=== PATIENT | male | born 1935 | race Caucasian/White ===

== ENCOUNTER 2016-09-26 19:09 | Inpatient (IN) | payer MEDICARE, BC ==
[~2016-09-26] VITALS: Ht 182.9 cm; Wt 113.4 kg
[~2016-09-26 19:09] MED LIST: ACETAMINOPHEN500 M1 PO; CARDURA2 MG PO; COUMADIN5 MG PO; DEXTROSE 50%/WA50 M2 IV; DULCOLAX10 MG/SUPP RC; ELECTROLYTE MISC; FISH OIL 1,0001 CA1 PO; GLIPIZIDE10 MG PO; GLUCAGEN1 MG/VIAL IM; GLUTOSE 1537.5 GM PO; HUMULIN R100 U/ML SC; HYDROCODON-ACE1 EAC7 PO; LEVAQUIN500 MG PO; LEVEMIR100 U/M1 SC; LOPID600 MG PO; MECLIZINE HCL12.5 MG PO; NEURONTIN 300300 MG PO; ONDANSETRON4 MG/2 M3 IV; XALATAN 0.0052.5 ML
[2016-09-26 19:41] LABS: BASOPHILS 0.2 % (0-2); EOSINOPHILS 0.7 % (0-7); HEMATOCRIT 45.3 % (42.0-54.0); HEMOGLOBIN 15.4 g/dL (13.5-17.5); IMMATURE GRANULOCYTES 0.3 % (0-5); LYMPHOCYTES 13.9 % (15-50); MCH 31.5 pg (26.0-34.0); MCV 92.6 fL (80.0-100.0); MEAN PLATELET VOLUME 11.3 fL (7.4-10.4); MONOCYTES 9.2 % (2-11); NEUTROPHILS 75.7 % (40-80); RBC 4.89 10x6/uL (4.20-6.10); RDW 13.5 % (11.5-14.5); WBC 12.2 10x3/uL (4.8-10.8)
[2016-09-26 19:46] LABS: PLATELET COUNT 128 10x3/uL (130-400)
[2016-09-26 20:22] LABS: ALBUMIN 3.3 g/dL (3.4-5.0); ANION GAP 16.4 mmol/L (8-16); BILIRUBIN - TOTAL 0.48 mg/dL (0.2-1.3); CALCIUM 9.2 mg/dL (8.5-10.1); CREATININE - SERUM 1.8 mg/dL (0.6-1.3); POTASSIUM - SERUM 4.4 mmol/L (3.5-5.1); PROTEIN - SERUM 7.1 g/dL (6.4-8.2)
[2016-09-26 22:15] LABS: APTT 68.9 SECONDS (22.8-39.4); INR 2.36 (0.85-1.17); PROTIME 25.9 SECONDS (11.6-15.0)
[2016-09-26 22:19] LABS: APPEARANCE CLEAR (CLEAR); BILIRUBIN NEGATIVE (NEGATIVE); COLOR YELLOW (YELLOW); GLUCOSE 1000 mg/dL (NEGATIVE); KETONE NEGATIVE (NEGATIVE); LEUKOCYTE ESTERASE NEGATIVE (NEGATIVE); NITRITE NEGATIVE (NEGATIVE); PROTEIN NEGATIVE (NEGATIVE); UROBILINOGEN NORMAL (NORMAL)
--- NOTE | 2016-09-26 22:45 | NUR ---
PATIENT RECEIVED TO ROOM FROM ER WITH FAMILY AND HOSPITAL STAFF. HE IS CURRENTLY AAOX4, BUT FAMILY CLAIMS THAT HE HAS SOME INTERMITTENT CONFUSION AND FORGETFULNESS. RR EVEN AND UNLABORED. 0 S/S OF DISTRESS. DENIES PAIN AT THIS TIME. LEVAQUIN INFUSING INTO IV IN LEFT AC. ADMIT COMPLETE. ORIENTED PATIENT TO ROOM AND CALL LIGHT. ATTACHED BOX ALARM TO PATIENT. SRX2. BED LOW. DOOR OPEN.
[2016-09-26 22:49] VITALS: BP 120/64; BMI 34.0
--- NOTE | 2016-09-27 03:00 | NUR ---
PATIENT ATTEMPTED TO USE URINAL, BUT SPILLED IT IN BED. BATH GIVEN AND LINENS AND GOWN CHANGED.
[2016-09-27 04:00] VITALS: BP 130/72
--- NOTE | 2016-09-27 07:40 | NUR ---
ASSESSEMENT COMPLETE. SL TO L AC. GENERALIZED WEAKNESS. BOX ALARM IN USE. DENIES ANY NEEDS AT PRESENT.
[2016-09-27 10:05] VITALS: BP 143/79
[2016-09-27] MEDS ORDERED: GLIPIZIDE10 MG PO (11:06)
[2016-09-27] MEDS ORDERED: MECLIZINE HCL25 MG PO (11:07)
[2016-09-27] MEDS ORDERED: MOBIC7.5 MG PO (11:09)
[2016-09-27] MEDS ORDERED: JANUVIA100 MG PO (11:10)
[2016-09-27 11:36] VITALS: BP 139/76
--- NOTE | 2016-09-27 12:00 | NUR ---
NO CHANGES NOTED AT PRESENT.
--- NOTE | 2016-09-27 14:00 | NUR ---
REFUSED ALBA CATHETER.
--- NOTE | 2016-09-27 15:00 | NUR ---
AT BEDSIDE. NO CHANGES NOTED AT PRESENT.
[2016-09-27 15:24] VITALS: Ht 182.9 cm; Wt 113.4 kg
[2016-09-27 16:03] VITALS: BP 149/59
--- NOTE | 2016-09-27 17:31 | HP ---
PATIENT: URI KNIGHT MEDICAL RECORD: [id number] ACCOUNT: [id number] LOCATION:[id number] : 36 ADMISSION DATE: 09/26/16 HISTORY AND PHYSICAL EXAMINATION REASON FOR ADMISSION: Fever with cough, confusion and weakness. HISTORY OF PRESENT ILLNESS: The patient is an 81-year-old male, who daughter states he became very weak on Sunday, 3 days prior to admission. He said his legs just wound not hold him up and he felt low-grade fever. He did not come to the hospital until it became worse last evening. EMT was called and he just could not really get up and do much. He came to the ED with a temperature of 100.7, heart rate of 105 and hypertension with blood pressure of 178/94. The patient could only give very little history and I gleaned this history from his daughter. She said he had a little bit of a dry cough and poor appetite. He was admitted with a diagnosis of possible pneumonia and had a white count of ____. His BUN was 28, creatinine 1.8, was elevated, and blood sugar was 258. His urine showed 10-25 rbc's and over 50 white cells. He has now been admitted for possible pneumonia and probable UTI. PAST MEDICAL HISTORY: Carotid occlusive disease post-endarterectomy, metabolic syndrome, history of aortic valve replacement for aortic stenosis, remote CABG for ASHD, history of TIA, dyslipidemia, remote CVA, essential hypertension, erectile dysfunction, history of adhesive capsulitis of the right shoulder, history of urinary tract infection in March 2015 and ICA [place] [address] Osborn. PAST SURGICAL HISTORY: CABG in 2009, aortic valve replacement, angioplasty for peripheral vascular disease, carotid endarterectomy and cataract surgery on both eyes. FAMILY HISTORY: Mother with CAD. Father with lung disease, was a smoker. SOCIAL HISTORY: A 2-pack a day smoker for 20 years, not smoking currently. He is , his cares for him. He does not drink alcohol currently. ALLERGIES: None known. HOME MEDICATIONS: Meloxicam 15 mg p.o. daily, glipizide 10 mg 2 tablets b.i.d., gabapentin 300 mg b.i.d., Meclizine 25 mg t.i.d. p.r.n. dizziness, Adams 10/325 one q.8 hours for severe pain, gemfibrozil 600 mg p.o. b.i.d., Januvia 100 mg p.o. daily, Travatan Z 0.004% eye drops 1 drop both eyes as directed, fish oil 1 p.o. daily, finasteride 5 mg p.o. daily, Coumadin 5 mg daily, hydrocodone 5 mg q.6 hours p.r.n. pain, Dulcolax 10 mg p.o. daily p.r.n. constipation and Levemir 30 units subQ at bedtime. REVIEW OF SYSTEMS: GENERAL: Quite fatigued the last 3 days with fever to as high as 101, poor appetite. HEENT: No recent visual change, sinus congestion, or sore throat. He has chronic hearing difficulty. RESPIRATORY: Dry cough, nonproductive. CARDIAC: No exertional chest pain, claudication, or edema. GASTROINTESTINAL: He has had some nausea, no vomiting or diarrhea. GENITOURINARY: Has nocturia once or twice nightly. He denies any recent blood HISTORY AND PHYSICAL [id number] KNIGHTURI in his urine or odor. Denies dysuria. ENDOCRINE: Denies polyuria, polydipsia, heat or cold intolerance. NEUROLOGIC: He does have remote history of stroke and TIA. No recent vascular headaches or seizures. INTEGUMENT: No rash or itching. PSYCHIATRIC: Denies depressed mood. PHYSICAL EXAMINATION: VITAL SIGNS: Temperature is 100.7 degrees Fahrenheit orally, pulse 105 and regular, respirations were 18, blood pressure 178/94 and sat was 92% on room air. GENERAL: The patient appears fatigued, but is oriented. HEENT: His eyes are clear. Oropharynx is unremarkable. Mucous membranes are dry. Ears are clear. NECK: No bruits or masses. CHEST: He has faint crackles in the left base, but no wheeze or rales, otherwise. HEART: Regular rate and rhythm with I/ aortic click, murmur. No rub is noted. ABDOMEN: Soft, nontender. RECTAL: Deferred. EXTREMITIES: A 1+ bipedal edema. No acrocyanosis appreciated. No petechiae. NEUROLOGICAL: The patient is oriented to person, but not to place and time. He has no localized motor deficits. Gait was not tested. LABORATORY DATA: Lab work showed a white count of ____ thousand with left shift. H&H is 15.4 and 44.3 respectively. Platelet count is low at 128,000. Chemistry: Sodium is low at 135, BUN and creatinine are elevated at 28 and 1.8. Glucose is 258. Lactic acid is 0.6. Magnesium low at 1.4. Urinalysis is abnormal with 10-25 red and over 50 white cells per high power field, moderate bacteria. Chest x-ray interpreted by radiology as normal. IMAGING: CT scan was ordered showing mild cerebral and cerebellar volume loss, moderate white matter burden changes representing chronic ischemia. No new intracranial abnormality seen. ASSESSMENT: 1. Febrile illness. 2. Urinary tract infection, probably causing above. 3. Diabetes mellitus, uncontrolled. 4. Hypomagnesemia. 5. Acute renal insufficiency. 6. Dementia. 7. History of coronary artery disease, aortic valve replacement on chronic anticoagulation, remote urinary tract infection, benign prostatic hypertrophy, remote cerebrovascular accident with gait disturbance. PLAN: The patient will be admitted for appropriate culturing, place on IV antibiotics and hydration. Further workup pending clinical course. I did discuss his case with his daughter, Kanika Rivas. TRANSINT:[id number] Voice Confirmation ID: [id number] DOCUMENT ID: [id number] HISTORY AND PHYSICAL [id number] URI KNIGHT TIMOTHY MD at 1731 CC: [id number] DICTATION DATE: 09/27/16 1328 PET RESORT CONCIERGE: 09/27/16 15[address] [place] [address]
--- NOTE | 2016-09-27 18:35 | NUR ---
RESTING QUIETLY IN BED AT THIS TIME.
[2016-09-27 19:00] VITALS: BP 162/82
--- NOTE | 2016-09-27 19:00 | NUR ---
BEDSIDE REPORT RECEIVED AND CARE OF PT ASSUMED. PT LYING IN SUPINE POSITION WITH EYES CLOSED. IV IN LEFT AC PATENT WITH NS INFUSING AT 50 ML / HR. BED ALARM IN PLACE. WILL MONITOR CLOSELY FOR NEEDS.
--- NOTE | 2016-09-27 20:54 | NUR ---
HS MEDICATIONS GIVEN. WILL CONTINUE TO MONITOR FOR NEEDS.
--- NOTE | 2016-09-27 21:20 | NUR ---
POST VOID BLADDER SCAN REVEALED 0 ML OF RETAINED URINE IN BLADDER.
--- NOTE | 2016-09-27 22:25 | NUR ---
GAVE RESTORIL 7.5 MG CAP PER PT REQUEST FOR SOMETHING TO HELP HIM SLEEP. WILL MONITOR FOR EFFECTIVENESS.
[2016-09-28 04:00] VITALS: BP 133/95
[2016-09-28 05:54] LABS: BASOPHILS 0.2 % (0-2); EOSINOPHILS 0.3 % (0-7); HEMATOCRIT 42.8 % (42.0-54.0); HEMOGLOBIN 14.3 g/dL (13.5-17.5); IMMATURE GRANULOCYTES 0.6 % (0-5); LYMPHOCYTES 19.6 % (15-50); MCH 31.1 pg (26.0-34.0); MCHC 33.4 g/dL (31.0-37.0); MEAN PLATELET VOLUME 11.7 fL (7.4-10.4); MONOCYTES 13.8 % (2-11); NEUTROPHILS 65.5 % (40-80); PLATELET COUNT 133 10x3/uL (130-400); RDW 13.5 % (11.5-14.5)
[2016-09-28 05:58] LABS: WBC 8.8 10x3/uL (4.8-10.8)
[2016-09-28 06:06] LABS: INR 1.76 (0.85-1.17); PROTIME 20.5 SECONDS (11.6-15.0)
[2016-09-28 06:14] LABS: ANION GAP 14.5 mmol/L (8-16); CALCIUM 8.9 mg/dL (8.5-10.1); CARBON DIOXIDE 23.3 mmol/L (21.0-32.0); CREATININE - SERUM 1.6 mg/dL (0.6-1.3); POTASSIUM - SERUM 3.8 mmol/L (3.5-5.1)
--- NOTE | 2016-09-28 07:40 | NUR ---
ASSESSMENT COMPLETE. IV TO L AC PATENT. NS INFUSING AT 50 CC/HR VIA PUMP. BOX ALARM IN USE. DENIES ANY NEEDS AT PRESENT.
--- NOTE | 2016-09-28 08:23 | NUR ---
Patient Name: URI KNIGHT Admission Status: ER Accout number: [id number] Admission Date: 09-26-2016 : 1935 Admission Diagnosis: Attending: BRAD Current LOS: 2 Anticipated DC Date: 10-02-2016 Planned Disposition: Home Primary Insurance: MEDICARE A & B Discharge Planning Comments: CM MET WITH PATIENT REGARDING D/C NEEDS AND PLANS. PATIENT STATED HE LIVES WITH HIS AND SHE WILL DRIVE HIM HOME AT DISCHARGE. PATIENT STATED THERE ARE NO STEPS OR STAIRS AT HIS HOME. PATIENT IS INDEPENDENT WITH HIS CARE AND HAS A WALKER, SHOWER CHAIR, AND GLUCOMETER (CHECKS DAILY) AT HIS HOME. PATIENTS PCP IS DR. NEWTON AND USES [facility]. PATIENT DOES NOT WANT HOME HEALTH AT THIS TIME. CM WILL CONTINUE TO FOLLOW PATIENT WITH D/C NEEDS AND PLANS. PCP DR. ENGLISH MORENO BY [facility] - [phone] DEVAUGHN () [phone] Theatrical Trouper: Kendal Gardner Is the patient Alert and Oriented? Yes 0 * How many steps to enter\exit or inside your home? 0 0 * PCP DR. NEWTON 0 * Pharmacy [facility] 0 * Preadmission Environment Home with Family 0 * ADLs Independent 0 * Equipment Glucometer Shower Chair Walker 0 * List name and contact numbers for known caregivers / representatives who currently or will assist patient after discharge: DEVAUGHN () [phone] 0 * Community resources currently utilized None 0 * Additional services required to return to the preadmission environment? Yes 0 * Can the patient safely return to the preadmission environment? Yes 0 * Has this patient been hospitalized within the prior 30 days at any hospital? No 0 Grand Total: 0
[2016-09-28 08:42] VITALS: BP 138/69
--- NOTE | 2016-09-28 10:02 | NUR ---
ASSISTED UP TO BATHROOM BY PHYSICAL THERAPY. DENIES ANY NEEDS AT PRESENT.
[2016-09-28 12:01] VITALS: BP 135/69
--- NOTE | 2016-09-28 15:17 | NUR ---
VISITING WITH FAMILY. DENIES ANY NEEDS AT PRESENT.
[2016-09-28 15:45] VITALS: BP 133/63
--- NOTE | 2016-09-28 18:14 | NUR ---
NO CHANGES NOTED.
--- NOTE | 2016-09-28 19:00 | NUR ---
BEDSIDE REPORT RECEIVED AND CARE OF PT ASSUMED. PT LYING IN SUPINE POSITION WATCHING TV. IV IN LEFT AC PATENT WITH NS INFUSING AT 50 ML / HR. WILL MONITOR CLOSLEY FOR NEEDS.
[2016-09-28 20:00] VITALS: BP 121/57
--- NOTE | 2016-09-28 21:15 | NUR ---
PT BATHED AND ALL BEDDING AND GOWN CHANGED DUE TO INCONTINENCE OF URINE. PT UPSET THAT HE FELT WE WERE NOT QUICK ENOUGH LEAD MINER BLASTING LIGHT...ASKED TO SPEAK TO TESTING MANAGER...CALLED [facility] WHO VISITED WITH PATIENT.
--- NOTE | 2016-09-28 21:15 | NUR ---
PT HAS REDNESS ON COCCYX AREA....CLEANSED AREA WELL AND APPLIED TIFFANY'S PASTE. PT TURNED PER TURN SCHEDULE.
--- NOTE | 2016-09-28 21:22 | NUR ---
HS MEDICATIONS GIVEN. FSBS 252 THIS ASSESSMENT REQUIRING COVERAGE WITH 6 UNITS OF INSULIN PER SLIDING SCALE. WILL CONTINUE TO MONITOR FOR NEEDS.
--- NOTE | 2016-09-28 21:30 | NUR ---
HS SNACK OF SHEBERT AND JULIETA CRACKERS PROVIDED.
--- NOTE | 2016-09-28 22:03 | NUR ---
PT C/O PAIN ON RIGHT SIDE OF CHEST AFTER BREATHING TX. VITALS STABLE. GAVE NORCO 5 PER PRN ORDER FOR REPORTED PAIN AT LEVEL 7/10. WILL MONITOR FOR EFFECTIVENESS.
--- NOTE | 2016-09-28 22:57 | NUR ---
PT C/O PAIN IN RIGHT CHEST RESOLVED, AND FEELING MUCH BETTER. TURNED PT AND PROPPED WITH PILLOWS TO GET OFF BUTTOCKS. LIGHTS TURNED OFF PER PT REQUEST TO TRY TO GO TO SLEEP. WILL CONTINUE TO MONITOR FOR NEEDS. BOX ALARM IN USE.
[2016-09-29] VITALS: BP 111/52
--- NOTE | 2016-09-29 02:40 | NUR ---
PT ASSISTED BY RATE ANALYST TO USE URINAL. WILL CONTINUE TO MONITOR FOR NEEDS. CALL LIGHT WITHIN REACH.
[2016-09-29 04:00] VITALS: BP 124/70
[2016-09-29 06:26] LABS: BASOPHILS 0.4 % (0-2); EOSINOPHILS 0.7 % (0-7); HEMATOCRIT 39.3 % (42.0-54.0); HEMOGLOBIN 13.1 g/dL (13.5-17.5); IMMATURE GRANULOCYTES 0.7 % (0-5); LYMPHOCYTES 22.1 % (15-50); MCHC 33.3 g/dL (31.0-37.0); MCV 92.9 fL (80.0-100.0); MONOCYTES 13.6 % (2-11); NEUTROPHILS 62.5 % (40-80); PLATELET COUNT 132 10x3/uL (130-400); RBC 4.23 10x6/uL (4.20-6.10); RDW 13.5 % (11.5-14.5); WBC 7.3 10x3/uL (4.8-10.8)
[2016-09-29 06:44] LABS: ANION GAP 14.7 mmol/L (8-16); CALCIUM 8.6 mg/dL (8.5-10.1); CARBON DIOXIDE 22.2 mmol/L (21.0-32.0); CREATININE - SERUM 1.8 mg/dL (0.6-1.3); POTASSIUM - SERUM 3.9 mmol/L (3.5-5.1)
[2016-09-29 08:16] VITALS: BP 145/66
[2016-09-29 12:11] VITALS: BP 132/63
--- NOTE | 2016-09-29 14:58 | NUR ---
NUTRITION MONITORING & EVAL CHART REVIEWED. PT TOLERATING ADA DIET, 50 TO 100% INTAKE RECENT MEALS. WILL CONTINUE TO PROVIDE DIET, MONITOR PO INTAKE. RD FOLLOWING
[2016-09-29 16:07] VITALS: BP 122/69
--- NOTE | 2016-09-29 19:30 | NUR ---
ASSESSMENT COMPLETED, NO ACUTE DISTRESS NOTED, DENIES PAIN OR NEEDS AT THIS TIME, SR'S UP ,CL IN REACH, WILL MONITOR
[2016-09-29 20:00] VITALS: BP 145/73
--- NOTE | 2016-09-29 20:17 | NUR ---
MEDS GIVEN PER MAR, KEELEY WELL, DIABETIC SNACK OFFERED, PT REFUSES AT THIS TIME, DENIES OTHER NEEDS, SR'S UP, CL IN REACH
--- NOTE | 2016-09-29 21:40 | NUR ---
DENIES NEEDS AT THIS TIME, FALL PRECAUTIONS IN PLACE, CL IN REACH
--- NOTE | 2016-09-29 23:21 | NUR ---
RESTING WITH EYES CLOSED, RESP WITH EASE, NO DISTRESS NOTED, SR'S UP, CL IN REACH
[2016-09-30] VITALS: BP 161/78
[2016-09-30 05:09] VITALS: BP 131/78
[2016-09-30 06:26] LABS: ANION GAP 14.1 mmol/L (8-16); CARBON DIOXIDE 23.1 mmol/L (21.0-32.0); CREATININE - SERUM 1.7 mg/dL (0.6-1.3); POTASSIUM - SERUM 4.2 mmol/L (3.5-5.1)
[2016-09-30 07:44] LABS: INR 2.04 (0.85-1.17); PROTIME 23.1 SECONDS (11.6-15.0)
--- NOTE | 2016-09-30 07:45 | NUR ---
PATIENT RESTING IN THE BED. AT PATIENT'S BEDSIDE. PATIENT IS AWAKE, ALERT, AND ORIENTED X4. ASSESSMENT COMPLETED. SEE FLOWSHEET FOR ANY DETAILS. NO COMPLAINTS OF PAIN AT PRESEN TIME. BOX ALARM IN PLACE. SCD'S TO BILATERAL LOWER EXTREMITIES. PATIENT STATES HE MIGHT GET TO GO HOME TODAY. PATIENT DENIES ANY NEEDS AT PRESENT TIME. CALL LIGHT IN PATIENT'S REACH. CRISTINA GARBER.
[2016-09-30 09:14] VITALS: BP 150/71
[2016-09-30] MEDS ORDERED: LEVAQUIN500 MG PO (09:31)
--- NOTE | 2016-09-30 11:10 | NUR ---
SALINE LOCK DC'D FROM PATIENT'S LEFT AC WITH CATHETER TIP STILL INTACT. BANDAID APPLIED. DISCHARGE INSTRUCTIONS VERBALIZED TO PATIENT. PATIENT VERBALIZED UNDERSTANDING AND SIGNED DISCHARGE SHEETS.
--- NOTE | 2016-09-30 11:26 | NUR ---
Patient discharged to home. Had refused home health. ALEC spoke with the patient and his , Clover, at the bedside. Patient ask if he could have [facility] which is now [place]. ALEC explained Beatriz's name has been changed to Quinten. Patient & said fine. Patient chioce form signed. TC to [facility], prescriptionist nurse, Kira. Reviewed referral. Case accepted. Faxed referral. patient will be seen on Sunday or Sunday. The h/h nurse will advise the patient.
--- NOTE | 2016-09-30 11:40 | NUR ---
PATIENT'S HERE TO DRIVE HIM HOME. PATIENT DISCHARGED VIA WHEELCHAIR TO PRIVATE VEHICLE.
--- NOTE | 2016-10-01 10:57 | DS ---
PATIENT:URI KNIGHT :37 MEDICAL RECORD: [id number] DISCHARGE SUMMARY ADMISSION DATE: 09/26/16 DISCHARGE DATE: 09/30/16 DISCHARGE DIAGNOSES: 1. Febrile illness. 2. Multi-organism urinary tract infection. 3. Diabetes mellitus, uncontrolled. 4. Hypomagnesemia. 5. Qhnvb-sf-vzrvfur renal insufficiency. 6. Dementia. HOSPITAL COURSE: An 81-year-old male who had been confused with fever for 3 days prior to admission. In the ED, he had a 100.7 Fahrenheit temperature. Was hypertensive and tachycardic. He gave little history, but had a dry cough, poor intake, felt to possibly have ____. BUN was 28, creatinine was 1.8. Blood sugar was 258. Urine showed 10-25 RBCs and 50+ WBCs. Admission chest x-ray was clear, but urine was grossly infected. The blood, urine were cultured. He was placed on IV antibiotics, IV fluids and his mentation improved. His white count dropped from 12 to 7000 on discharge. H&H was 13 and 39.3 respectively. BUN and creatinine improved to 24 and 1.7, which was his baseline. Blood sugar dropped into 185 range from over 250. His blood cultures were negative. His urine culture grew mixed contaminated specimen greater than 100,000. ____ to be continued on empiric antibiotic therapy for a full 7 days. I am concerned about his ambulation due to his diabetic neuropathy and musculoskeletal problems. His family had requested inpatient rehabilitation, which I thought was appropriate, but the patient is refusing at this time. He does have family here this weekend and I will allow him to go home with family care to the weekend. If he is not improving, we will admit to rehab on an outpatient basis. We also counseled home health for medication compliance and physical therapy. He will be discharged today in improved condition to the care of his . DISCHARGE MEDICATIONS: Levaquin 500 mg p.o. daily for 3 days and discontinue, gabapentin 300 mg b.i.d., Lopid 600 b.i.d., Levemir 30 units subq q.p.m., fish oil 1 p.o. b.i.d., Coumadin 5 mg daily at 5 p.m., acetaminophen 500 mg q.4 hours p.r.n. moderate pain, hydrocodone 5/325 one q.6 hours for severe pain, Dulcolax 10 ____ suppository p.r.n., Glucotrol 10 mg b.i.d. a.c. and Meclizine 25 b.i.d., Mobic 7.5 mg p.o. daily, Januvia 100 mg p.o. daily. DIET: ADA. ACTIVITY: Progress as tolerated, walk with walker only. Outpatient home health and PT consult to be obtained. Return to clinic to see me in 2 weeks with UA and BMP. TRANSINT:[id number] Voice Confirmation ID: [id number] DOCUMENT ID: [id number] DISCHARGE SUMMARY REPORT [id number] URI KNIGHT TIMOTHY MD at 1057 CC: [id number] DICTATION DATE: 09/30/16929 BOOM CRANE OPERATOR: 09/30/16 1005 DIS IN 09/30/16 [id number] [place] [address]
== END 2016-09-30 11:40 | disposition home health service (06) | DRG 690 ==
LOC: D.ER 19:09 → D.MS 21:57
PROVIDERS: Family Medicine; Physician Assistant; ADMIT Family Medicine
DX: N39.0 Urinary tract infection, site not specified (principal); N28.89 Other specified disorders of kidney and ureter; E11.65 Type 2 diabetes mellitus with hyperglycemia; Z79.84 Long term (current) use of oral hypoglycemic drugs; E83.42 Hypomagnesemia; F03.90 Unspecified dementia, unspecified severity, without behavioral disturbance, psychotic disturbance, mood disturbance, and anxiety; I25.10 Atherosclerotic heart disease of native coronary artery without angina pectoris; Z95.2 Presence of prosthetic heart valve; I69.398 Other sequelae of cerebral infarction; R26.9 Unspecified abnormalities of gait and mobility; R41.0 Disorientation, unspecified; E11.40 Type 2 diabetes mellitus with diabetic neuropathy, unspecified

== ENCOUNTER → 2016-10-05 14:10 | Outpatient (CLI) | payer MEDICARE, BC ==
[2016-09-27 15:24] VITALS: BMI 33.9
[~2016-10-05 14:10] MED LIST changes: +JANUVIA100 MG PO; +MECLIZINE HCL25 MG PO; +MOBIC7.5 MG PO
[2016-10-05 14:42] LABS: ANION GAP 15.5 mmol/L (8-16); CALCIUM 9.7 mg/dL (8.5-10.1); POTASSIUM - SERUM 4.5 mmol/L (3.5-5.1)
== END | disposition home or self-care (01) ==
LOC: D.LABREF 14:10
PROVIDERS: Family Medicine
DX: I10 Essential (primary) hypertension (principal); E11.9 Type 2 diabetes mellitus without complications

== ENCOUNTER → 2016-10-06 13:55 | Outpatient (CLI) | payer MEDICARE, BC ==
[2016-09-27 15:24] VITALS: BMI 33.9
== END | disposition home or self-care (01) ==
LOC: D.CT 13:55
DX: G45.9 Transient cerebral ischemic attack, unspecified (principal)

== ENCOUNTER 2016-10-16 11:25 | Inpatient (IN) | payer MEDICARE, BC ==
[~2016-10-16] VITALS: Ht 182.9 cm; Wt 107.0 kg
[2016-10-16 12:54] VITALS: BP 119/62; BMI 32.1
[2016-10-16 16:07] LABS: INR 4.13 (0.85-1.17); PROTIME 40.6 SECONDS (11.6-15.0)
[2016-10-16 19:00] VITALS: BP 103/60
--- NOTE | 2016-10-16 19:15 | NUR ---
PT UP IN BED WITH HOB UP FOR COMFORT. RESTING QUIETLY. ALERT & ORIENTED. PILOT STATION. MEDS WHOLE. NO O2. NO IV. BED IN LOWEST POSITION AND CALL LIGHT WITHIN REACH.
--- NOTE | 2016-10-16 23:15 | NUR ---
PT IN BED WITH HOB UP FOR COMFORT. EYES CLOSED. CHEST RISING AND FALLING. BED IN LOWEST POSITION AND CALL LIGHT WITHIN REACH.
--- NOTE | 2016-10-17 01:45 | NUR ---
IN BED, EYES CLOSED. AUDIBLE RESPIRATIONS ARE UNLABORED.
--- NOTE | 2016-10-17 04:45 | NUR ---
PT IN BED WITH HOB UP FOR COMFORT. RESTING QUIETLY. BED IN LOWEST POSITION AND CALL LIGHT WITHIN REACH.
[2016-10-17 05:22] LABS: INR 3.82 (0.85-1.17); PROTIME 38.1 SECONDS (11.6-15.0)
[2016-10-17 06:14] VITALS: Ht 182.9 cm; Wt 107.0 kg
--- NOTE | 2016-10-17 08:00 | NUR ---
SHIFT ASSMT COMPLETED.DENIES NEEDS.PLANS TO DC HOME ON SUNDAY.
[2016-10-17 09:26] VITALS: BP 112/56
[2016-10-17 19:05] VITALS: BP 131/67
--- NOTE | 2016-10-17 20:00 | NUR ---
PT. LYING IN BED WATCHING TV. ASSESSMENT COMPLETED. PT. KNOWS HE NEEDS TO STAY OFF HIS BACK/BUTTOCK BUT STATES HE CAN'S WHILE HE'S WATCHING TV. NO VOICED NEEDS AT THIS TIME AND HIS CALL LIGHT IS WITHIN REACH.
--- NOTE | 2016-10-17 23:19 | NUR ---
PT. IN BED WITH HOB SLIGHTLY ELEVATED. EYES CLOSED AND RESP. EVEN. CALL LIGHT WITHIN REACH.
--- NOTE | 2016-10-18 03:06 | NUR ---
PT. IN BED WITH HOB SLIGHTLY ELEVATED FOR COMFORT. EYES CLOSED AND RESP. DEEP AND EVEN. CALL LIGHT WITHIN REACH.
[2016-10-18 05:29] LABS: BASOPHILS 0.4 % (0-2); EOSINOPHILS 2.3 % (0-7); HEMATOCRIT 39.9 % (42.0-54.0); HEMOGLOBIN 13.4 g/dL (13.5-17.5); IMMATURE GRANULOCYTES 0.6 % (0-5); LYMPHOCYTES 42.5 % (15-50); MCH 30.7 pg (26.0-34.0); MCHC 33.6 g/dL (31.0-37.0); MCV 91.3 fL (80.0-100.0); MEAN PLATELET VOLUME 11.1 fL (7.4-10.4); MONOCYTES 13.4 % (2-11); NEUTROPHILS 40.8 % (40-80); PLATELET COUNT 156 10x3/uL (130-400); RBC 4.37 10x6/uL (4.20-6.10); RDW 13.6 % (11.5-14.5); WBC 4.7 10x3/uL (4.8-10.8)
[2016-10-18 05:36] LABS: INR 3.16 (0.85-1.17); PROTIME 32.8 SECONDS (11.6-15.0)
[2016-10-18 05:45] LABS: ANION GAP 11.6 mmol/L (8-16); CALCIUM 8.9 mg/dL (8.5-10.1); CARBON DIOXIDE 26.1 mmol/L (21.0-32.0); CREATININE - SERUM 1.6 mg/dL (0.6-1.3); POTASSIUM - SERUM 3.7 mmol/L (3.5-5.1)
[2016-10-18 08:00] VITALS: BP 151/88
--- NOTE | 2016-10-18 08:00 | NUR ---
SHIFT ASSMT COMPLETED.UP INDEPENDENTLY IN ROOM WITH WALKER.ALARM WAIVER SIGNED.BREAKFAST GIVEN.
--- NOTE | 2016-10-18 12:00 | NUR ---
SITTING UP IN ROOM VISITING WITH FAMILY.CL IN REACH.
--- NOTE | 2016-10-18 17:08 | NUR ---
PATIENT ADMITTED TO REHAB . [facility]16. WILL CONTINUE TO FOLLOW WITH PATIENT UNTIL DISCHARGED, PATIENT HAS WALKER AT HOME AND HAS USED [facility] AT HOME FOR HOME HEALTH.
[2016-10-18 19:00] VITALS: BP 134/63
--- NOTE | 2016-10-18 19:30 | NUR ---
PT SITTING UP IN W/C, PT HAS VISITORS, CONVERSING IN ROOM, PT DENIES ANY NEEDS.
--- NOTE | 2016-10-18 21:30 | NUR ---
WOKE PATIENT TO ADMINISTER MEDICATIONS, APOLOGIZED, PT DENIED ANY NEEDS OTHER THAN NEEDING ANOTHER BLANKET. PT STATES HE IS READY TO GO HOME.
--- NOTE | 2016-10-19 01:00 | NUR ---
RESTING QUIETLY NO S/S OF ACUTE DISTRESS RESPIRATIONS REGULAR AND UNLABORED.
--- NOTE | 2016-10-19 04:28 | NUR ---
PT RESTING QUIETLY, EYES CLOSED, RESPIRATIONS REGULAR AND UNLABORED, LYING IN SUPINE POSITION. NO S/S OF ACUTE DISTRESS.
[2016-10-19 05:44] LABS: PROTIME 26.6 SECONDS (11.6-15.0)
[2016-10-19 05:46] LABS: INR 2.43 (0.85-1.17)
--- NOTE | 2016-10-19 08:03 | NUR ---
PT IS RESTING IN BED WITH EYES OPEN. ALERT AND ORIENTED X3. DENIES PAIN OR DISCOMFORT THIS AM. NO NEEDS VOICED. SR'S ARE UP X 2 IN BED. CALL LIGHT AND BEDSIDE TABLE ARE WITHIN EASY REACH.
[2016-10-19 08:47] VITALS: BP 129/69
--- NOTE | 2016-10-19 09:53 | NUR ---
PT IS RESTING IN A WC IN HIS ROOM AWAITING THERAPY. NO NEEDS VOICED.
--- NOTE | 2016-10-19 14:12 | NUR ---
PT IS PARTICIPATING IN THERAPY AT THIS TIME.
--- NOTE | 2016-10-19 15:55 | NUR ---
PT IS RESTING IN BED WITH EYES CLOSED. NO ACUTE DISTRESS NOTED.
--- NOTE | 2016-10-19 17:21 | NUR ---
PT SITTING UP ON SIDE OF BED, DENIES NEEDS. BED LOW. CL IN REACH.
[2016-10-19 18:59] VITALS: BP 145/75
--- NOTE | 2016-10-19 19:30 | NUR ---
PT WATCHING TV. PT DENIES NO S/S OF ACUTE DISTRESS.
--- NOTE | 2016-10-19 21:05 | NUR ---
PT CONVERSIVE AND EXPRESSED CONCERN WITH THE FSBS.
[2016-10-20 06:03] LABS: BASOPHILS 0.3 % (0-2); EOSINOPHILS 2.4 % (0-7); HEMATOCRIT 41.9 % (42.0-54.0); HEMOGLOBIN 13.9 g/dL (13.5-17.5); IMMATURE GRANULOCYTES 0.5 % (0-5); LYMPHOCYTES 35.9 % (15-50); MCH 30.5 pg (26.0-34.0); MCHC 33.2 g/dL (31.0-37.0); MCV 92.1 fL (80.0-100.0); MEAN PLATELET VOLUME 11.4 fL (7.4-10.4); MONOCYTES 16.7 % (2-11); NEUTROPHILS 44.2 % (40-80); PLATELET COUNT 135 10x3/uL (130-400); RBC 4.55 10x6/uL (4.20-6.10); RDW 13.7 % (11.5-14.5); WBC 5.8 10x3/uL (4.8-10.8)
[2016-10-20 06:04] LABS: INR 1.96 (0.85-1.17); PROTIME 22.3 SECONDS (11.6-15.0)
[2016-10-20 06:08] LABS: ANION GAP 11.7 mmol/L (8-16); CALCIUM 9.4 mg/dL (8.5-10.1); CARBON DIOXIDE 27.6 mmol/L (21.0-32.0); CREATININE - SERUM 1.7 mg/dL (0.6-1.3); POTASSIUM - SERUM 4.3 mmol/L (3.5-5.1)
--- NOTE | 2016-10-20 06:28 | NUR ---
PT RESTING QUIETLY, NO S/S OF DISTRESS.
[2016-10-20 08:06] VITALS: BP 99/53
[2016-10-20] MEDS ORDERED: HYDROCODON-ACE1 EAC7 PO (10:26)
--- NOTE | 2016-10-20 10:41 | NUR ---
PATIENT DISCHARGING HOME WITH FAMILY. [facility] WILL FOLLOW WITH PATIENT AT HOME. NO NEW DME NEEDED AT THIS TIME. DR. NEWTON 10/27/16 @ 10:30. PATIENT CHOICE FORM FOR HOME HEALTH AND [facility] FORM SIGNED, EXPLIANED AND FILED IN CHART. DISCHARGE PLAN AND DISCHARGED MEDICATIONS FAXED TO [facility] AT DR. NEWTON OFFICE, ( ). ORDERS FAXED WITH CONFORMATION RECIEVED
--- NOTE | 2016-10-20 11:15 | NUR ---
D/C HOME WITH ALL PERSONAL BELONGINGS. WENT OVER D/C INSTRUCTIONS WITH PT AND HE DENIES NEEDING ANY MEDS CALLED IN TO PHARMACY. STATES HE HAS ALL OF CURRENT MEDS AT HOME. HE USES WALKER AND W/C FOR AMBULATION ASST. DENIES QUESTIONS AT D/C.
== END 2016-10-20 11:15 | disposition home health service (06) | DRG 948 ==
LOC: D.REHAB 11:25
PROVIDERS: ADMIT Emergency Medicine
DX: R53.81 Other malaise (principal); R53.1 Weakness; N40.0 Benign prostatic hyperplasia without lower urinary tract symptoms; I25.10 Atherosclerotic heart disease of native coronary artery without angina pectoris; F03.90 Unspecified dementia, unspecified severity, without behavioral disturbance, psychotic disturbance, mood disturbance, and anxiety; R26.89 Other abnormalities of gait and mobility; Z95.1 Presence of aortocoronary bypass graft; Z95.5 Presence of coronary angioplasty implant and graft; I10 Essential (primary) hypertension; E11.65 Type 2 diabetes mellitus with hyperglycemia

== ENCOUNTER → 2017-05-14 12:59 | Outpatient (CLI) | payer MEDICARE, BC ==
[2016-10-17 06:14] VITALS: BMI 32.0
== END | disposition home or self-care (01) ==
LOC: D.US 12:59
DX: I65.23 Occlusion and stenosis of bilateral carotid arteries (principal)

== ENCOUNTER → 2017-06-08 08:52 | Outpatient (CLI) | payer MEDICARE, BC ==
[2016-10-17 06:14] VITALS: BMI 32.0
== END | disposition home or self-care (01) ==
LOC: D.CT 08:00
DX: I65.23 Occlusion and stenosis of bilateral carotid arteries (principal)

== ENCOUNTER 2017-08-03 16:13 | Observation (INO) | payer MEDICARE, BC ==
[~2017-08-03] VITALS: Ht 182.9 cm; Wt 108.2 kg
--- NOTE | ~2017-08-03 | HP ---
PATIENT: URI KNIGHT MEDICAL RECORD: [id number] ACCOUNT: [id number] LOCATION:[address] : 36 ADMISSION DATE: 08/03/17 HISTORY AND PHYSICAL EXAMINATION DATE OF ADMISSION: 08/03/2017. CHIEF COMPLAINT: Weakness. HISTORY OF PRESENT ILLNESS: This is an 82-year-old white male who was brought into the office today, stated he could barely get up out of bed and walk, this is a definite change from yesterday according to and son. In our office, his blood pressure was 85/50, checked by 2 nurses and physician. He is assigned to observation for further evaluation to rule out infection and etc. PAST MEDICAL HISTORY: Carotid occlusive disease, metabolic syndrome, aortic stenosis, coronary artery disease, TIA, hyperlipidemia, remote CVA, hypertension, urinary tract infections, diabetes, and depression. PAST SURGICAL HISTORY: Coronary artery bypass grafting, carotid endarterectomy, heart valve replacement, knee surgery, angioplasty for peripheral vascular disease, cataract repair. ALLERGIES: None known. HOME MEDICATIONS: 1. He takes lipozene 2 tablets daily, this started 3 days ago to help with weight loss. 2. Levemir 30 units at bedtime. 3. Meloxicam 15 mg a day. 4. Gabapentin 300 mg 2 pills twice a day. 5. Meclizine 25 mg 3 times a day. 6. Januvia 100 mg once a day. 7. Warfarin 5 mg okh-sst-sffi pills a day. 8. Gemfibrozil 600 mg one pill twice a day. 9. Glipizide 10 mg twice a day. 10. Fish oil 1000 mg once a day. ALLERGIES: TO AUGMENTIN. HABITS: Former smoker, no alcohol or drugs. SOCIAL HISTORY: Retired, . FAMILY HISTORY: Mother had coronary artery disease. Father had lung disease. REVIEW OF SYSTEMS: GENERAL: No major weight changes. HEENT: No particular sinus or allergy problems. RESPIRATORY: No recent changes. CARDIAC: No exertional chest pain. GASTROINTESTINAL: He has had some nausea. No vomiting or diarrhea. GENITOURINARY: Has to get up once or twice at night to urinate. ENDOCRINE: Has diabetes. NEUROLOGIC: He has a remote history of TIA and strokes. HISTORY AND PHYSICAL [id number] URI KNIGHT INTEGUMENT: No rash. PSYCHIATRIC: No depression or melancholia. PHYSICAL EXAMINATION: VITAL SIGNS: Temperature 97.9, pulse 86, respirations 16. In our office, his blood pressure was 85/50, checked in both arms 3 times. GENERAL: He is in a wheelchair in my office. HEENT: Grossly within normal limits. NECK: Supple. No JVD or bruit. HEART: Regular rate and rhythm. LUNGS: Fairly clear. ABDOMEN: Soft, flat, nontender. EXTREMITIES: Trace edema. NEUROLOGIC: I did not get him up to try to walk. ASSESSMENT: 1. Hypotension. 2. Generalized weakness. PLAN: We will assign to observation at [place]. We will check labs including urinalysis. Other tests or procedures as warranted. TRANSINT:[id number] Voice Confirmation ID: [id number] DOCUMENT ID: [id number] JOEY HASSAN MD at 1440 CC: [id number] DICTATION DATE: 08/04/17 1324 HUMAN RESOURCES GENERALIST: 08/04/17 1357 DIS IN 08/04/17 [facility] [address] [place] [address]
[2017-08-03 17:02] VITALS: BP 113/67; Ht 182.9 cm; Wt 108.2 kg
[2017-08-03] MEDS ORDERED: COUMADIN5 MG PO (17:15)
[2017-08-03 17:39] LABS: BASOPHILS 0.4 % (0-2); EOSINOPHILS 1.9 % (0-7); HEMATOCRIT 43.8 % (42.0-54.0); HEMOGLOBIN 14.8 g/dL (13.5-17.5); IMMATURE GRANULOCYTES 0.4 % (0-5); LYMPHOCYTES 30.2 % (15-50); MCH 31.8 pg (26.0-34.0); MCHC 33.8 g/dL (31.0-37.0); MEAN PLATELET VOLUME 11.9 fL (7.4-10.4); MONOCYTES 9.2 % (2-11); NEUTROPHILS 57.9 % (40-80); PLATELET COUNT 137 10x3/uL (130-400); RBC 4.66 10x6/uL (4.20-6.10); RDW 13.9 % (11.5-14.5); WBC 8.4 10x3/uL (4.8-10.8)
[2017-08-03 17:49] LABS: ALBUMIN 3.2 g/dL (3.4-5.0); ANION GAP 15.8 mmol/L (8-16); BILIRUBIN - TOTAL 0.37 mg/dL (0.2-1.3); CALCIUM 9.1 mg/dL (8.5-10.1); CARBON DIOXIDE 23.6 mmol/L (21.0-32.0); CREATININE - SERUM 2.3 mg/dL (0.6-1.3); POTASSIUM - SERUM 4.4 mmol/L (3.5-5.1); PROTEIN - SERUM 7.7 g/dL (6.4-8.2)
[2017-08-03 19:34] VITALS: BP 128/63
[2017-08-04] VITALS: BP 129/57
[2017-08-04 05:25] VITALS: BP 139/67
[2017-08-04 09:14] VITALS: BP 159/88
[2017-08-04 12:23] VITALS: BP 139/71
[2017-08-04 13:26] LABS: APPEARANCE CLEAR (CLEAR); BILIRUBIN NEGATIVE (NEGATIVE); COLOR YELLOW (YELLOW); GLUCOSE 1000 mg/dL (NEGATIVE); KETONE NEGATIVE (NEGATIVE); NITRITE NEGATIVE (NEGATIVE); PROTEIN NEGATIVE (NEGATIVE); SPECIFIC GRAVITY 1.015 (1.005-1.020); UROBILINOGEN NORMAL (NORMAL)
== END 2017-08-04 16:11 | disposition home or self-care (01) ==
LOC: D.M2 16:13 → OBSVTIME 16:13 → D.M2 08-04 16:11
PROVIDERS: Family Medicine
DX: I95.9 Hypotension, unspecified (principal); E78.5 Hyperlipidemia, unspecified; I25.10 Atherosclerotic heart disease of native coronary artery without angina pectoris; I10 Essential (primary) hypertension; Z86.73 Personal history of transient ischemic attack (TIA), and cerebral infarction without residual deficits; E11.9 Type 2 diabetes mellitus without complications; F32.9 Major depressive disorder, single episode, unspecified

== ENCOUNTER → 2017-08-11 11:41 | Outpatient (CLI) | payer MEDICARE, BC ==
[2017-08-03 17:02] VITALS: BMI 34.0
[2017-08-11 12:17] LABS: ANION GAP 14.7 mmol/L (8-16); CALCIUM 9.2 mg/dL (8.5-10.1); CARBON DIOXIDE 23.2 mmol/L (21.0-32.0); CREATININE - SERUM 2.3 mg/dL (0.6-1.3); POTASSIUM - SERUM 4.9 mmol/L (3.5-5.1)
== END | disposition home or self-care (01) ==
LOC: D.LABREF 11:41
PROVIDERS: Family Medicine
DX: E87.5 Hyperkalemia (principal)

== ENCOUNTER 2017-11-13 19:06 | Inpatient (IN) | payer MEDICARE, BC ==
[~2017-11-13] VITALS: Ht 182.9 cm; Wt 112.5 kg
[2017-11-13] MEDS ORDERED: JANUVIA100 MG PO (19:09)
[2017-11-13 20:18] LABS: BASOPHILS 0.2 % (0-2); EOSINOPHILS 0.5 % (0-7); HEMATOCRIT 44.6 % (42.0-54.0); HEMOGLOBIN 15.5 g/dL (13.5-17.5); IMMATURE GRANULOCYTES 0.4 % (0-5); LYMPHOCYTES 8.7 % (15-50); MCH 31.5 pg (26.0-34.0); MCHC 34.8 g/dL (31.0-37.0); MCV 90.7 fL (80.0-100.0); MEAN PLATELET VOLUME 11.6 fL (7.4-10.4); NEUTROPHILS 81.2 % (40-80); PLATELET COUNT 142 10x3/uL (130-400); RBC 4.92 10x6/uL (4.20-6.10); RDW 13.2 % (11.5-14.5); WBC 13.5 10x3/uL (4.8-10.8)
[2017-11-13 20:36] LABS: ALBUMIN 3.4 g/dL (3.4-5.0); ALKALINE PHOSPHATASE 63 U/L (46-116); ALT (SGPT) 13 U/L (10-68); BILIRUBIN - TOTAL 0.25 mg/dL (0.2-1.3); CALC OSMOLALITY 286 mosm/kg (275-300); CALCIUM 10.5 mg/dL (8.5-10.1); CARBON DIOXIDE 24.3 mmol/L (21.0-32.0); CHLORIDE - SERUM 101 mmol/L (98-107); CREATININE - SERUM 2.1 mg/dL (0.6-1.3); GLUCOSE 291 mg/dL (74-106); POTASSIUM - SERUM 5.2 mmol/L (3.5-5.1); PROTEIN - SERUM 7.7 g/dL (6.4-8.2); SODIUM 134 mmol/L (136-145); UREA NITROGEN 36 mg/dL (7-18); eGFR NON AFRICAN AMERICAN 32 mL/min (90-120)
[2017-11-13 20:48] LABS: CKMB 1.8 U/L (0.0-3.6); CREATINE KINASE 79 UL (21-232); LIPASE 256 U/L (73-393); PRO BNP 197 pg/mL (0-450); TROPONIN-I < 0.017 ng/mL (0.000-0.060)
[2017-11-13 23:00] VITALS: BP 130/64
[2017-11-13 23:12] LABS: UDS - AMPHET NEGATIVE QUAL (NEGATIVE); UDS - BARB NEGATIVE QUAL (NEGATIVE); UDS - BENZO NEGATIVE QUAL (NEGATIVE); UDS - COCAINE NEGATIVE QUAL (NEGATIVE); UDS - OPIATE NEGATIVE QUAL (NEGATIVE); UDS - PCP NEGATIVE QUAL (NEGATIVE); UDS - THC NEGATIVE QUAL (NEGATIVE)
[2017-11-14] VITALS (10 sets, daily range): BP systolic 112–170; BP diastolic 57–81; Ht 182.9 cm; Wt 112.5 kg
[2017-11-14 07:18] LABS: BASOPHILS 0.2 % (0-2); HEMOGLOBIN 14.2 g/dL (13.5-17.5); IMMATURE GRANULOCYTES 0.3 % (0-5); LYMPHOCYTES 23.6 % (15-50); MCH 31.1 pg (26.0-34.0); MCHC 33.8 g/dL (31.0-37.0); MCV 91.9 fL (80.0-100.0); MEAN PLATELET VOLUME 11.9 fL (7.4-10.4); MONOCYTES 8.6 % (2-11); NEUTROPHILS 66.3 % (40-80); PLATELET COUNT 127 10x3/uL (130-400); RBC 4.57 10x6/uL (4.20-6.10); RDW 13.4 % (11.5-14.5); WBC 10.3 10x3/uL (4.8-10.8)
[2017-11-14 07:43] LABS: CALCIUM 9.3 mg/dL (8.5-10.1); CARBON DIOXIDE 26.3 mmol/L (21.0-32.0); CHLORIDE - SERUM 106 mmol/L (98-107); CKMB 2.4 U/L (0.0-3.6); CREATININE - SERUM 1.8 mg/dL (0.6-1.3); POTASSIUM - SERUM 4.5 mmol/L (3.5-5.1); SODIUM 141 mmol/L (136-145); TROPONIN-I < 0.017 ng/mL (0.000-0.060); UREA NITROGEN 30 mg/dL (7-18); eGFR NON AFRICAN AMERICAN 39 mL/min (90-120)
[2017-11-14 07:45] LABS: CALC OSMOLALITY 288 mosm/kg (275-300); CREATINE KINASE 273 UL (21-232); GLUCOSE 141 mg/dL (74-106)
[2017-11-14 08:54] LABS: INR 2.44 (0.85-1.17); PROTIME 25.8 SECONDS (11.6-15.0)
[2017-11-15 06:11] VITALS: BP 119/69
[2017-11-15 06:17] LABS: BASOPHILS 0.4 % (0-2); EOSINOPHILS 1.9 % (0-7); HEMATOCRIT 42.6 % (42.0-54.0); HEMOGLOBIN 14.3 g/dL (13.5-17.5); IMMATURE GRANULOCYTES 0.5 % (0-5); LYMPHOCYTES 23.8 % (15-50); MCHC 33.6 g/dL (31.0-37.0); MCV 92.2 fL (80.0-100.0); MONOCYTES 10.7 % (2-11); NEUTROPHILS 62.7 % (40-80); PLATELET COUNT 134 10x3/uL (130-400); RBC 4.62 10x6/uL (4.20-6.10); RDW 13.3 % (11.5-14.5); WBC 8.3 10x3/uL (4.8-10.8)
[2017-11-15 06:22] LABS: PROTIME 21.4 SECONDS (11.6-15.0)
[2017-11-15 06:42] LABS: ANION GAP 11.4 mmol/L (8-16); CARBON DIOXIDE 26.3 mmol/L (21.0-32.0); CREATININE - SERUM 1.6 mg/dL (0.6-1.3); POTASSIUM - SERUM 4.7 mmol/L (3.5-5.1)
[2017-11-15 06:46] LABS: INR 1.92 (0.85-1.17)
[2017-11-15 08:52] VITALS: BP 121/66
[2017-11-15 12:00] VITALS: BP 125/69
[2017-11-15 16:47] VITALS: BP 140/63
[2017-11-15 21:27] VITALS: BP 148/77
[2017-11-16 02:05] VITALS: BP 124/75; BP 145/74
[2017-11-16 04:00] VITALS: BP 150/78
[2017-11-16 05:30] LABS: BASOPHILS 0.5 % (0-2); EOSINOPHILS 2.6 % (0-7); HEMATOCRIT 42.9 % (42.0-54.0); HEMOGLOBIN 14.8 g/dL (13.5-17.5); IMMATURE GRANULOCYTES 0.6 % (0-5); LYMPHOCYTES 26.2 % (15-50); MCH 31.6 pg (26.0-34.0); MCHC 34.5 g/dL (31.0-37.0); MCV 91.5 fL (80.0-100.0); MEAN PLATELET VOLUME 11.7 fL (7.4-10.4); MONOCYTES 11.5 % (2-11); NEUTROPHILS 58.6 % (40-80); PLATELET COUNT 126 10x3/uL (130-400); RBC 4.69 10x6/uL (4.20-6.10); RDW 13.1 % (11.5-14.5); WBC 8.3 10x3/uL (4.8-10.8)
[2017-11-16 05:46] LABS: ANION GAP 12.4 mmol/L (8-16); CALCIUM 8.9 mg/dL (8.5-10.1); CARBON DIOXIDE 25.9 mmol/L (21.0-32.0); CREATININE - SERUM 1.5 mg/dL (0.6-1.3); POTASSIUM - SERUM 4.3 mmol/L (3.5-5.1)
[2017-11-16 06:24] LABS: PROTIME 17.8 SECONDS (11.6-15.0)
[2017-11-16 07:13] LABS: INR 1.52 (0.85-1.17)
[2017-11-16 08:39] VITALS: BP 160/76
[2017-11-16 11:45] VITALS: BP 124/62
[2017-11-16] MEDS ORDERED: ZOFRAN4 MG PO (14:42)
[2017-11-16] MEDS ORDERED: FLORAJEN3 CAPS460 MG PO (14:45)
[2017-11-16] MEDS ORDERED: HUMALOG 30100 UNITS/ SC (14:45)
[2017-11-16] MEDS ORDERED: LEVAQUIN500 MG PO (14:50)
[2017-11-16] MEDS ORDERED: ROCEPHIN 1 GM/D51 G1 IV (14:51)
== END 2017-11-16 16:15 | DRG 698 ==
LOC: D.ER 19:06 → D.EDHOLD 22:01 → D.M2 22:01
PROVIDERS: Family Medicine
DX: N28.9 Disorder of kidney and ureter, unspecified (principal); J18.9 Pneumonia, unspecified organism; E11.9 Type 2 diabetes mellitus without complications; Z86.73 Personal history of transient ischemic attack (TIA), and cerebral infarction without residual deficits; I25.10 Atherosclerotic heart disease of native coronary artery without angina pectoris; Z95.5 Presence of coronary angioplasty implant and graft; Z68.20 Body mass index [BMI] 20.0-20.9, adult; R53.81 Other malaise

== ENCOUNTER 2017-11-16 13:18 | Inpatient (IN) | payer MEDICARE, BC ==
[~2017-11-16] VITALS: Ht 182.9 cm; Wt 111.1 kg
--- NOTE | ~2017-11-16 | RHP ---
PATIENT: URI KNIGHT MEDICAL RECORD: [id number] ACCOUNT: [id number] LOCATION:[facility]1117 : 36 ADMISSION DATE: 11/16/17 REHABILITATION HISTORY AND PHYSICAL EXAMINATION POST ADMISSION PHYSICIAN EXAMINATION POST-ADMISSION PHYSICAL EXAM AND HISTORY AND PHYSICAL ADMITTING DIAGNOSIS: Pneumonia. HISTORY OF PRESENT ILLNESS: The patient is admitted to the inpatient rehabilitation for debility secondary to pneumonia. He is an 82-year-old gentleman that was brought in to the ED with EMS changes and weakness. He has past medical history for TIA, dizziness, glaucoma, diabetes, coronary artery disease with a history of angioplasty and stents and coronary artery bypass grafting. Occasional UTIs are noted and urinary incontinence. He has had some arthritis and chronic back pain. He was found to have pneumonia and renal insufficiency and weakness. He has been on oxygen via nasal cannula and receiving IV antibiotics. He has been monitored closely for therapeutic level of his Coumadin with medication dosage being changed on a regular basis secondary to his PT and INR not being therapeutic. He has been closely monitored for fingerstick blood sugars and also receiving scheduled insulin as needed. He is slowly progressing physically and would benefit from a short inpatient rehab stay, so he can return home with his . His son is also very involved in his care. He is moderately independent with use of rolling walker for mobility, moderate independent to independent with his ADLs, currently set up for moderate assist with his ADLs and moderate assist to total assist for mobility. He and his family plan for him to return home after a short stay in the rehab hopefully. COMORBIDITIES: In this patient include pneumonia, renal insufficiency, weakness, chronic diabetes, debility, glaucoma, self-care deficit and advanced age. PAST MEDICAL HISTORY: Significant for TIA, dizziness, glaucoma, diabetes, stent/angioplasty, coronary artery bypass grafting, coronary artery disease, occasional urinary incontinence, arthritis, chronic back pain. PAST SURGICAL HISTORY: Includes angioplasty with stents, coronary artery bypass grafting, which was done in 2009, cataracts, partial knee replacement. He has also had carpal tunnel surgery. ALLERGIES: No known drug allergies. CURRENT MEDICATIONS: He is on Coumadin, he takes 2.5 on Sunday, Sunday and Sunday, and alternates that with 5. He is on Levaquin 500 mg daily. He is on Floranex 460 mg daily, Zofran 4 mg q.4 hours p.r.n. He is on intermediate resistant sliding scale with Humalog. He is on Levemir 25 units at bedtime, Neurontin 300 mg b.i.d., Rocephin 1 g q.24 hours and polyethylene glycol 17 grams in 8 ounces of water daily. HABITS: No current alcohol or tobacco use. FAMILY HISTORY: Noncontributory. HISTORY AND PHYSICAL [id number] URI KNIGHT SOCIAL HISTORY: The patient hopes to return back home and get back to his prior level of functioning. REVIEW OF SYSTEMS: GENERAL: Does complain of weakness and fatigue. HEENT: Denies cold, cough, or congestion. CARDIOVASCULAR: Denies any chest pain. PHYSICAL EXAMINATION: VITAL SIGNS: Stable, afebrile. GENERAL: Elderly gentleman in no acute distress, alert upon exam. HEENT: Normocephalic and atraumatic. Mucosa moist. NECK: Supple. No lymphadenopathy. LUNGS: Clear in upper bob at this time, decreased breath sounds in the bases. HEART: Regular rate and rhythm. ABDOMEN: Benign. EXTREMITIES: No clubbing, cyanosis or edema. NEUROLOGIC: He does have noted weakness. LABORATORY DATA: White count is 8.6, H&H of 11 and 33 and platelet count is 305. His sodium is 147, potassium is 4.4, BUN and creatinine of 38 and 1.1 and blood sugar is noted to be 97. ASSESSMENT: This is an 82-year-old gentleman who is admitted to rehab with a working diagnosis of debility secondary to pneumonia and advanced age and also obesity. The patient has potential to make improvement. We instituted the following multidisciplinary therapies including but not limited to physical, occupational, respiratory, speech, nutritional services, prosthetics and orthotics. Given his complex medical condition and risk for more complications, rehabilitation services cannot be provided at a low level of care such as a skilled nurse facility. PLAN: 1. Admit to [facility] for intensive inpatient therapy to include the following disciplines: A. Physical therapy to improve gait, all transfer skills and bed mobility to a modified independent level. B. Occupational therapy to improve activities of daily living to a modified independent level. C. Case management to assist with discharge planning and placement options. D. Nutrition to assist with nutritional needs. E. Rehabilitation nursing to assist in monitoring the patient's underlying medical conditions and to assist with any type of bowel or bladder management. 2. The patient's current medication and medical care will be continued. 3. The patient will be placed on standard fall precautions. 4. The patient's estimated length of stay is approximately 7-10 days. 5. We will watch this patient closely. As soon as he progresses well, we will work on getting him back home and will watch for any changes in his respiratory status. TRANSINT:[id number] Voice Confirmation ID: [id number] DOCUMENT ID: [id number] DEMARCUS notes whether there has been none or any medical/functional HISTORY AND PHYSICAL [id number] URI KNIGHT change since admission: - No change since prescreen. DEMARCUS attests patient continues to be appropriate for IRF: - Continues to be appropriate. RAMSES ESTEVEZ MD at 1048 CC: [id number] DICTATION DATE: 11/17/17918 BOTTLE HOUSE PUMPER: 11/17/17 0956 ADM IN [facility] [address] [place] [address]
[2017-11-16] MEDS ORDERED: ZOFRAN4 MG PO (14:42)
[2017-11-16] MEDS ORDERED: HUMALOG 30100 UNITS/ SC (14:45)
[2017-11-16] MEDS ORDERED: FLORAJEN3 CAPS460 MG PO (14:45)
[2017-11-16] MEDS ORDERED: LEVAQUIN500 MG PO (14:50)
[2017-11-16] MEDS ORDERED: ROCEPHIN 1 GM/D51 G1 IV (14:51)
[2017-11-16 18:44] VITALS: BP 130/43; BMI 33.3
[2017-11-16 19:55] VITALS: BP 130/63
[2017-11-17 06:00] LABS: BASOPHILS 0.5 % (0-2); EOSINOPHILS 2.8 % (0-7); IMMATURE GRANULOCYTES 0.8 % (0-5); LYMPHOCYTES 17.8 % (15-50); MCH 31.9 pg (26.0-34.0); MCHC 33.6 g/dL (31.0-37.0); MEAN PLATELET VOLUME 9.6 fL (7.4-10.4); NEUTROPHILS 67.1 % (40-80); RDW 14.3 % (11.5-14.5); WBC 8.6 10x3/uL (4.8-10.8)
[2017-11-17 06:26] LABS: HEMATOCRIT 32.7 % (42.0-54.0); RBC 3.45 10x6/uL (4.20-6.10)
[2017-11-17 06:27] LABS: MCV 94.8 fL (80.0-100.0); PLATELET COUNT 305 10x3/uL (130-400)
[2017-11-17 06:28] LABS: ANION GAP 14.6 mmol/L (8-16); CALCIUM 8.8 mg/dL (8.5-10.1); CARBON DIOXIDE 23.8 mmol/L (21.0-32.0); POTASSIUM - SERUM 4.4 mmol/L (3.5-5.1)
[2017-11-17 06:45] LABS: CREATININE - SERUM 1.1 mg/dL (0.6-1.3)
[2017-11-17 08:00] VITALS: BP 140/78
[2017-11-17 10:00] VITALS: Ht 182.9 cm; Wt 111.1 kg
[2017-11-18 07:05] LABS: INR 1.24 (0.85-1.17); PROTIME 15.2 SECONDS (11.6-15.0)
[2017-11-18 08:11] VITALS: BP 132/73
== END 2017-11-18 12:15 | disposition home health service (06) | DRG 947 ==
LOC: D.REHAB 13:18
PROVIDERS: Emergency Medicine
DX: R53.81 Other malaise (principal); J18.9 Pneumonia, unspecified organism; E11.9 Type 2 diabetes mellitus without complications; I25.10 Atherosclerotic heart disease of native coronary artery without angina pectoris; Z95.1 Presence of aortocoronary bypass graft; H40.9 Unspecified glaucoma; R53.1 Weakness; N28.9 Disorder of kidney and ureter, unspecified

== ENCOUNTER 2018-03-20 09:10 | Inpatient (IN) | payer MEDICARE, BC ==
[~2018-03-20] VITALS: Ht 182.9 cm; Wt 115.7 kg
[~2018-03-20 09:10] MED LIST changes: +FLORAJEN3 CAPS460 MG PO; +HUMALOG 30100 UNITS/ SC; +ROCEPHIN 1 GM/D51 G1 IV; +ZOFRAN4 MG PO
[2018-03-20 09:52] LABS: BASOPHILS 0.2 % (0-2); EOSINOPHILS 0.4 % (0-7); HEMATOCRIT 44.5 % (42.0-54.0); HEMOGLOBIN 15.1 g/dL (13.5-17.5); IMMATURE GRANULOCYTES 0.4 % (0-5); LYMPHOCYTES 11.9 % (15-50); MCH 31.4 pg (26.0-34.0); MCHC 33.9 g/dL (31.0-37.0); MCV 92.5 fL (80.0-100.0); MEAN PLATELET VOLUME 11.3 fL (7.4-10.4); MONOCYTES 9.9 % (2-11); NEUTROPHILS 77.2 % (40-80); RBC 4.81 10x6/uL (4.20-6.10); RDW 14.3 % (11.5-14.5); WBC 9.9 10x3/uL (4.8-10.8)
[2018-03-20 09:53] LABS: PLATELET COUNT 143 10x3/uL (130-400)
[2018-03-20 10:07] LABS: APTT 64.3 SECONDS (22.8-39.4); INR 3.01 (0.85-1.17); PROTIME 30.4 SECONDS (11.6-15.0)
[2018-03-20 10:25] LABS: ALBUMIN 3.4 g/dL (3.4-5.0); ALKALINE PHOSPHATASE 72 U/L (46-116); ALT (SGPT) 2 U/L (10-68); BILIRUBIN - TOTAL 0.43 mg/dL (0.2-1.3); CALC OSMOLALITY 291 mosm/kg (275-300); CALCIUM 8.8 mg/dL (8.5-10.1); CARBON DIOXIDE 24.5 mmol/L (21.0-32.0); CHLORIDE - SERUM 102 mmol/L (98-107); CKMB 1.3 U/L (0.0-3.6); CREATINE KINASE 67 UL (21-232); CREATININE - SERUM 2.3 mg/dL (0.6-1.3); POTASSIUM - SERUM 4.9 mmol/L (3.5-5.1); PROTEIN - SERUM 7.8 g/dL (6.4-8.2); SODIUM 138 mmol/L (136-145); TROPONIN-I < 0.017 ng/mL (0.000-0.060); UREA NITROGEN 30 mg/dL (7-18); eGFR NON AFRICAN AMERICAN 29 mL/min (90-120)
[2018-03-20 10:33] LABS: GLUCOSE 271 mg/dL (74-106)
[2018-03-20 10:37] LABS: APPEARANCE CLEAR (CLEAR); BILIRUBIN NEGATIVE (NEGATIVE); COLOR YELLOW (YELLOW); GLUCOSE 1000 mg/dL (NEGATIVE); KETONE NEGATIVE (NEGATIVE); NITRITE NEGATIVE (NEGATIVE); PROTEIN 1+ mg/dL (NEGATIVE); SPECIFIC GRAVITY 1.015 (1.005-1.020); UROBILINOGEN NORMAL (NORMAL)
[2018-03-20 10:38] LABS: EPITHELIAL CELLS NSEEN /hpf (0-5); RED CELLS - URINE 0-5 /hpf (0-5); WHITE CELLS - URINE OCC /hpf (0-5)
[2018-03-20 10:46] VITALS: BP 172/69
[2018-03-20 15:38] VITALS: BP 169/86; BMI 34.6
[2018-03-20] MEDS ORDERED: MECLIZINE HCL25 MG PO (15:52)
[2018-03-20] MEDS ORDERED: MOBIC7.5 MG PO (15:52)
[2018-03-20] MEDS ORDERED: GEMFIBROZIL600 MG PO (15:54)
[2018-03-20] MEDS ORDERED: LEVEMIR IN100 UNITS/ SC (15:55)
[2018-03-20 16:50] VITALS: BP 169/86
[2018-03-20 20:24] VITALS: BP 172/81
[2018-03-21 00:58] VITALS: BP 143/72
[2018-03-21 04:00] VITALS: BP 130/67
[2018-03-21 05:48] LABS: BASOPHILS 0 % (0-2); EOSINOPHILS 0 % (0-7); HEMATOCRIT 40.3 % (42.0-54.0); HEMOGLOBIN 13.6 g/dL (13.5-17.5); IMMATURE GRANULOCYTES 0.3 % (0-5); LYMPHOCYTES 6.2 % (15-50); MCH 31.3 pg (26.0-34.0); MCHC 33.7 g/dL (31.0-37.0); MCV 92.6 fL (80.0-100.0); MEAN PLATELET VOLUME 11.5 fL (7.4-10.4); MONOCYTES 9.2 % (2-11); NEUTROPHILS 84.3 % (40-80); PLATELET COUNT 151 10x3/uL (130-400); RBC 4.35 10x6/uL (4.20-6.10); RDW 14.4 % (11.5-14.5); WBC 12.2 10x3/uL (4.8-10.8)
[2018-03-21 06:54] LABS: ALBUMIN 2.6 g/dL (3.4-5.0); ANION GAP 16.3 mmol/L (8-16); BILIRUBIN - TOTAL 0.35 mg/dL (0.2-1.3); CALCIUM 8.6 mg/dL (8.5-10.1); CARBON DIOXIDE 23.7 mmol/L (21.0-32.0); CREATININE - SERUM 2.1 mg/dL (0.6-1.3); PROTEIN - SERUM 7.5 g/dL (6.4-8.2)
[2018-03-21 08:15] VITALS: BP 147/71
[2018-03-21 11:31] VITALS: BP 110/60
[2018-03-21 12:40] VITALS: BMI 34.6
[2018-03-21 17:02] VITALS: BP 137/73
[2018-03-22 04:24] LABS: BASOPHILS 0.2 % (0-2); EOSINOPHILS 0.2 % (0-7); HEMATOCRIT 36.5 % (42.0-54.0); HEMOGLOBIN 12.1 g/dL (13.5-17.5); IMMATURE GRANULOCYTES 0.5 % (0-5); LYMPHOCYTES 18.9 % (15-50); MCH 30.6 pg (26.0-34.0); MCHC 33.2 g/dL (31.0-37.0); MCV 92.4 fL (80.0-100.0); MEAN PLATELET VOLUME 11.6 fL (7.4-10.4); NEUTROPHILS 71.2 % (40-80); PLATELET COUNT 153 10x3/uL (130-400); RBC 3.95 10x6/uL (4.20-6.10); RDW 14.4 % (11.5-14.5); WBC 12.4 10x3/uL (4.8-10.8)
[2018-03-22 04:40] LABS: ANION GAP 14.8 mmol/L (8-16); CALCIUM 8.7 mg/dL (8.5-10.1)
[2018-03-22 04:45] LABS: POTASSIUM - SERUM 3.8 mmol/L (3.5-5.1)
[2018-03-22 07:51] VITALS: BP 152/70
[2018-03-22 11:32] VITALS: BP 107/61
[2018-03-22 15:44] VITALS: BP 134/69
[2018-03-22 20:00] VITALS: BP 173/83
[2018-03-23 04:20] VITALS: BP 174/92
[2018-03-23 05:44] LABS: INR 1.85 (0.85-1.17); PROTIME 20.7 SECONDS (11.6-15.0)
[2018-03-23 08:02] VITALS: Ht 182.9 cm; Wt 115.7 kg
[2018-03-23 08:18] VITALS: BP 178/97
--- NOTE | 2018-03-23 09:47 | HP ---
PATIENT: URI KNIGHT MEDICAL RECORD: [id number] ACCOUNT: [id number] LOCATION:[address]04 : 36 ADMISSION DATE: 03/20/18 PCP: ANGELA NEWTON MD HISTORY AND PHYSICAL EXAMINATION CHIEF COMPLAINT: Fever, confusion and weakness. HISTORY OF PRESENT ILLNESS: The patient is an 83-year-old male with history of type 2 diabetes mellitus, remote CVA, and AFib. The patient has been debilitated for some time and able to walk by using a rolling walker at home. His says he became more weak the last 3-4 days and his legs are so weak he fell once or twice at home, last was this morning and he fell on her. There was no reported injury except for his right shoulder where he is having some pain. reports it was 101 twice, has minimal cough. No dysuria, no nausea or vomiting. Does not complain of headache. In the Emergency Room, his pO2 was in the low 60s on room air, but he would desaturate lying supine. PAST MEDICAL HISTORY: Essential hypertension, diabetes mellitus, fair control, dementia, coronary artery disease, post-aortic valve replacement, on chronic anticoagulation, BPH, sick sinus syndrome with pacemaker, gait disturbance, hypomagnesemia, he was hospitalized in 2016 for altered mental status and UTI, carotid occlusive disease, admitted in 11/2017 for pneumonia, and glaucoma. PAST SURGICAL HISTORY: Coronary artery bypass grafting, carotid arterectomy, aortic valve replacement, he has had total knee replacement, angioplasty for peripheral vascular disease, cataract lens implants, OU, and he has had carpal tunnel repair. SOCIAL HISTORY: He is , lives at home with his , he is a nonsmoker, nondrinker, but he requires for her to help with most of his ADLs. FAMILY HISTORY: Mother of CAD. Father had lung disease, was a smoker. ALLERGIES: None known. HOME MEDICATIONS: Meloxicam 15 mg daily, tramadol 50 mg at bedtime, gemfibrozil 600 mg p.o. b.i.d., glipizide 10 mg tablets 2 p.o. b.i.d. before meals, Januvia 100 mg a day, Flomax 0.4 mg at bedtime, Levemir 25 units at bedtime subQ, Coumadin 5 mg Sunday, , Sunday, Sunday and 2.5 mg other days, gabapentin 600 mg 2 caps p.o. b.i.d., fish oil 1 capsule p.o. daily. REVIEW OF SYSTEMS: GENERAL: Fever as mentioned above as high as 101. Malaise and poor appetite. HEENT: He has had slight headache, no visual change, sinus congestion, or sore throat. Does have trouble hearing chronically. RESPIRATORY: He has had dry cough, does not feel short of breath. He states no chest pain. CARDIAC: No exertional rest chest pain, claudication, has chronic edema, no worse in both extremities. ENDOCRINE: Denies polyuria, polydipsia, heat or cold intolerance. GENITOURINARY: Nocturia once or twice nightly and slightly decreased voiding stream. Denies any recent change in his urine color or odor. NEUROLOGIC: Remote history of stroke, TIA and has chronic gait disturbance as a result. Oriented to person, but not place and time. He has unsteady gait. HISTORY AND PHYSICAL [id number] URI KNIGHT PHYSICAL EXAMINATION: VITAL SIGNS: Temperature 98.6 currently, it was 102.0 on admission, pulse 101 and regular, respirations 18, blood pressure 169/86, sat 95% on 2 liters. HEENT: Normocephalic. Eyes are clear with cataract lens implants noted. Oropharynx dry mucous membranes. NECK: No bruits or masses. CHEST: Distant breath sounds without wheeze or rales, no retractions. HEART: Regular rate with II/ aortic click, murmur. ABDOMEN: Soft, nontender, obese. GENITOURINARY: Unremarkable. Penis appears normal. EXTREMITIES: He has chronic 2+ bipedal and pretibial edema to the knees. No current skin lesions are noted. PSYCHIATRIC: Denies depressed mood, but admits to poor memory. LAB: Blood sugar of 281. Blood gas; pH 7.4, CO2 of 35, pO2 of 64. Gabriele test positive on room air. Lactic acid is 1.09,hemoglobin 14.7, hematocrit 43, potassium 4.7, white count 9900. INR is 2.01. BUN and creatinine are 30 and 2.3, elevated. Liver functions are normal. Influenza A and B are negative. IMAGING: One-view chest x-ray, calcified granuloma in the left lower lobe. Postoperative sternotomy changes are noted. Otherwise, no active disease. CT of the head with the ventricles are prominent. Hypodensity in the periventricular white matter bilaterally. No mass effect. Calcification in the vertebral arteries and internal carotid arteries bilaterally. Atrophy. His UA shows 1+ protein, 1+ blood, 2-5 red cells, no bacteria. ASSESSMENT: 1. Febrile illness. 2. Bronchitis with mild hypoxemia. 3. Uncontrolled diabetes mellitus. 4. Remote cerebrovascular accident. 5. Aortic stenosis post- aortic-valve replacement. 6. History of coronary artery disease post-coronary artery bypass grafting. 7. Peripheral vascular disease. 8. Hyperlipidemia. 9. Altered mental status. PLAN: The patient will be admitted for pulmonary updrafts, IV fluids, culture of blood and urine, empiric antibiotics. Further workup pending clinical course. Discussed with his who is in the room. TRANSINT:[id number] Voice Confirmation ID: [id number] DOCUMENT ID: [id number] ANGELA NEWTON MD at 0947 CC: [id number] DICTATION DATE: 03/20/181736 SUPERVISOR WHIPPED TOPPING: 03/20/18 2132 ADM IN [facility] [address] [place] [address]
[2018-03-23 12:12] VITALS: BP 160/88
[2018-03-23 16:27] VITALS: BP 182/81
[2018-03-23 19:30] VITALS: BP 178/88
[2018-03-23 23:55] VITALS: BP 165/82
[2018-03-24 04:15] VITALS: BP 175/87
[2018-03-24 07:48] LABS: ANION GAP 16.6 mmol/L (8-16); CALCIUM 9.1 mg/dL (8.5-10.1); CARBON DIOXIDE 25.2 mmol/L (21.0-32.0); CREATININE - SERUM 1.5 mg/dL (0.6-1.3); POTASSIUM - SERUM 4.8 mmol/L (3.5-5.1)
[2018-03-24 07:56] LABS: INR 1.85 (0.85-1.17); PROTIME 20.7 SECONDS (11.6-15.0)
[2018-03-24 08:11] VITALS: BP 153/75
[2018-03-24 12:00] VITALS: BP 120/56
[2018-03-24 16:00] VITALS: BP 147/76
[2018-03-24 21:47] VITALS: BP 152/76
[2018-03-25 01:51] VITALS: BP 111/69
[2018-03-25 05:39] VITALS: BP 130/71
[2018-03-25 08:14] VITALS: BP 148/77
[2018-03-25 11:28] VITALS: BP 147/75
[2018-03-25 15:31] VITALS: BP 156/90
[2018-03-25 21:34] VITALS: BP 137/67
[2018-03-26 03:48] VITALS: BP 120/60
[2018-03-26 07:14] LABS: PROTIME 16.6 SECONDS (11.6-15.0)
[2018-03-26 07:17] LABS: INR 1.41 (0.85-1.17)
[2018-03-26 07:38] VITALS: BP 139/82
[2018-03-26 08:00] LABS: MAGNESIUM - SERUM 2.3 mg/dL (1.8-2.4)
[2018-03-26 11:23] VITALS: BP 111/54
--- NOTE | 2018-03-26 12:27 | MORECARE ---
CASE MANAGEMENT DISCHARGE SUMMARY PATIENT: URI KNIGHT UNIT: [id number] ADM DATE: 03/20/18 AGE: 83 : 36 SEX: M ROOM/BED: D.1204 AUTHOR: JUAN ALFARO PHYSICIAN: REFERRING PHYSICIAN: ANGELA NEWTON MD DATE OF SERVICE: 03/26/18 Discharge Plan Patient Name: URI KNIGHT Facility: [facility] : 1935 Planned Disposition: Inpatient Rehab Facility Anticipated Discharge Date: Discharge Date: Expected LOS: Initial Reviewer: [email or web address] Initial Review Date: 03/26/2018 Generated: 03/26/18 1:27 pm Comments DCP- Discharge Planning Updated by [email or web address]: La Nena Dubon on 03/25/18 5:[address] LATE ENTRY 1640 THE REHAB SCREENERS, HANS AND WILL, CAME TO THE UNIT TO REVIEW AND ASSESS THE PATIENT. HIS WAS APPARENTLY IN THE ROOM AND THEY SPOKE W/ HER. THE PLAN IS FOR POSSIBLE ACUTE REHAB ADMIT. HE HAS BEEN TO [facility] RE[facility] PREVIOUSLY AND THE SIGNED HIM OUT EARLY. THE SCREENER DISCUSSED HE NEEDS TO COMPLETE THE REHAB COURSE. SHE STATES SHE UNDERSTANDS. DCP- Discharge Planning Updated by [email or web address]: La Nena Dubon on 03/25/18 1:[address] CM VISITED AT THE BEDSIDE TO DISCUSS DISCHARGE PLANS. PATIENT WAS ALONE IN HIS ROOM. HE WAS VERY SLOW TO ANSWER. HIS ANSWERS WERE INCONSISTENT. HE STATED HE HAD BEEN ON HOSPICE BUT DID NOT KNOW THE PROVIDER'S NAME. STATED JOSH WAS HIS PHRAMACY. CM ASK IF I COULD SPEAK WITH A FAMILY MEMBER. HE SAID YES. STATED HIS SHOULD BE BACK SOON. SPOKE WITH HIS NURSE. SHE STATED HE DOES NOT ANSWER QUESTIONS WELL. CM WILL F/U WITH THE . TC TO REHAB REGARDING AN UPDATE. LEFT VOICE MAIL MESSAGE AT 1167. AWAITING CB. REVIEWED PHYSICAL THERAPY NOTES- PATIENT IS MAX ASSIST SUPINE TO SIT AND MAX ASSIST TRANSFER TO CHAIR. NOTED O2 SAT IS 91-92 AT REST. CM TO FOLLOW. Patient Name: URI KNIGHT Page [phone] at 1227 All edits/amendments must be made on the electronic document DICTATION DATE: 03/26/18 1226 FIRE APPARATUS SPRINKLER INSPECTOR: NESSA 03/26/18 1226 RPT#: [id number] [place] DATE: STATUS: ADM IN [facility] [address] [place] [address] END OF REPORT
--- NOTE | 2018-03-26 12:35 | MORECARE ---
CASE MANAGEMENT DISCHARGE SUMMARY PATIENT: URI KNIGHT UNIT: [id number] ADM DATE: 03/20/18 AGE: 83 : 36 SEX: M ROOM/BED: D.1204 AUTHOR: JUAN ALFARO PHYSICIAN: REFERRING PHYSICIAN: ANGELA NEWTON MD DATE OF SERVICE: 03/26/18 Discharge Plan Patient Name: URI KNIGHT Facility: [facility]:[place] : 1935 Planned Disposition: Inpatient Rehab Facility Anticipated Discharge Date: Discharge Date: Expected LOS: Initial Reviewer: [email or web address] Initial Review Date: 03/26/2018 Generated: 03/26/18 1:35 pm Comments DCP- Discharge Planning Updated by [email or web address]: La Nena Dubon on 03/25/18 5:[address] LATE ENTRY 1640 THE REHAB SCREENERS, HANS AND WILL, CAME TO THE UNIT TO REVIEW AND ASSESS THE PATIENT. HIS WAS APPARENTLY IN THE ROOM AND THEY SPOKE W/ HER. THE PLAN IS FOR POSSIBLE ACUTE REHAB ADMIT. HE HAS BEEN TO [facility] REHAB PREVIOUSLY AND THE SIGNED HIM OUT EARLY. THE SCREENER DISCUSSED HE NEEDS TO COMPLETE THE REHAB COURSE. SHE STATES SHE UNDERSTANDS. DCP- Discharge Planning Updated by [email or web address]: La Nena Dubon on 03/25/18 1:[address] CM VISITED AT THE BEDSIDE TO DISCUSS DISCHARGE PLANS. PATIENT WAS ALONE IN HIS ROOM. HE WAS VERY SLOW TO ANSWER. HIS ANSWERS WERE INCONSISTENT. HE STATED HE HAD BEEN ON HOSPICE BUT DID NOT KNOW THE PROVIDER'S NAME. STATED JOSH WAS HIS PHRAMACY. CM ASK IF I COULD SPEAK WITH A FAMILY MEMBER. HE SAID YES. STATED HIS SHOULD BE BACK SOON. SPOKE WITH HIS NURSE. SHE STATED HE DOES NOT ANSWER QUESTIONS WELL. CM WILL F/U WITH THE . TC TO REHAB REGARDING AN UPDATE. LEFT VOICE MAIL MESSAGE AT 1167. AWAITING CB. REVIEWED PHYSICAL THERAPY NOTES- PATIENT IS MAX ASSIST SUPINE TO SIT AND MAX ASSIST TRANSFER TO CHAIR. NOTED O2 SAT IS 91-92 AT REST. CM TO FOLLOW. DCPIA - Discharge Planning Initial Assessment Updated by [email or web address]: Annika Hernandez on 03/26/18 12:28 pm * Is the patient Alert and Oriented? Yes * How many steps to enter\exit or inside your home? * PCP LATVIAN * [facility] * Preadmission Environment Home with Family * ADLs Partial Dependent * Partial ADLs (Assistance needed) Bathing Dressing * Equipment Walker * List name and contact numbers for known caregivers / representatives who currently or will assist patient after discharge: MARÍA ERICKSON -MEERA - [phone] * Verbal permission to speak to the caregivers and representatives has been obtained from the patient. N/A * Community resources currently utilized Home Health * Please name any agencies selected above. [facility] * Additional services required to return to the preadmission environment? No * Can the patient safely return to the preadmission environment? Yes * Has this patient been hospitalized within the prior 30 days at any hospital? No Last DP export: 03/26/18 11:27 Patient Name: URI KNIGHT Page [phone] at 1235 All edits/amendments must be made on the electronic document DICTATION DATE: 03/26/18 1234 MANAGER MARKETING: NESSA 03/26/18 1234 RPT#: [id number] DC DATE: STATUS: ADM IN [facility] [address] [place] [address] END OF REPORT
--- NOTE | 2018-03-26 12:43 | MORECARE ---
CASE MANAGEMENT DISCHARGE SUMMARY PATIENT: URI KNIGHT UNIT: [id number] ADM DATE: 03/20/18 AGE: 83 : 36 SEX: M ROOM/BED: D.1204 AUTHOR: JUAN ALFARO PHYSICIAN: REFERRING PHYSICIAN: ANGELA BERNSTEIN MD DATE OF SERVICE: 03/26/18 Discharge Plan Patient Name: URI KNIGHT Facility: [facility]:[place] : 1935 Planned Disposition: Inpatient Rehab Facility Anticipated Discharge Date: Discharge Date: Expected LOS: Initial Reviewer: [email or web address] Initial Review Date: 03/26/2018 Generated: 03/26/18 1:43 pm Comments DCP- Discharge Planning Updated by [email or web address]: Annika Hernandez on 03/26/18 11:[address] Patient Name: URI KNIGHT Admission Status: ER Accout number: [id number] Admission Date: 03-20-2018 : 1935 Admission Diagnosis:PNEUMONIA, UNSPECIFIED ORGANISM Attending: ANGELA BERNSTEIN Current LOS: 6 Anticipated DC Date: Planned Disposition: Inpatient Rehab Facility Primary Insurance: MEDICARE A & B Discharge Planning Comments: CM spoke with patient regarding discharge planning. Patient states he wants to go to inpatient rehab before discharging home. Patient states he had [facility] prior to admission. CM received call from Hans that patient was accepted to inpatient rehab. CM will call Dr. Bernstein office and let him know patient was approved for rehab. CM will continue to follow and assist as needed with discharge planning / needs. Machine Heddle Cleaner: Annika Hernandez DCP- Discharge Planning Updated by [email or web address]: La Nena Dubon on 03/25/18 5:[address] LATE ENTRY 1640 THE REHAB SCREENERS, HANS AND WILL, CAME TO THE UNIT TO REVIEW AND ASSESS THE PATIENT. HIS WAS APPARENTLY IN THE ROOM AND THEY SPOKE W/ HER. THE PLAN IS FOR POSSIBLE ACUTE REHAB ADMIT. HE HAS BEEN TO [facility] REHAB PREVIOUSLY AND THE SIGNED HIM OUT EARLY. THE SCREENER DISCUSSED HE NEEDS TO COMPLETE THE REHAB COURSE. SHE STATES SHE UNDERSTANDS. DCP- Discharge Planning Updated by [id number]: La Nena Dubon on 03/25/18 1:[address] CM VISITED AT THE BEDSIDE TO DISCUSS DISCHARGE PLANS. PATIENT WAS ALONE IN HIS ROOM. HE WAS VERY SLOW TO ANSWER. HIS ANSWERS WERE INCONSISTENT. HE STATED HE HAD BEEN ON HOSPICE BUT DID NOT KNOW THE PROVIDER'S NAME. STATED JOSH WAS HIS PHRAMACY. CM ASK IF I COULD SPEAK WITH A FAMILY MEMBER. HE SAID YES. STATED HIS SHOULD BE BACK SOON. SPOKE WITH HIS NURSE. SHE STATED HE DOES NOT ANSWER QUESTIONS WELL. CM WILL F/U WITH THE . TC TO REHAB REGARDING AN UPDATE. LEFT VOICE MAIL MESSAGE AT 1167. AWAITING CB. REVIEWED PHYSICAL THERAPY NOTES- PATIENT IS MAX ASSIST SUPINE TO SIT AND MAX ASSIST TRANSFER TO CHAIR. NOTED O2 SAT IS 91-92 AT REST. CM TO FOLLOW. DCPIA - Discharge Planning Initial Assessment Updated by [email or web address]: Annika Hernandez on 03/26/18 12:28 pm * Is the patient Alert and Oriented? Yes * How many steps to enter\exit or inside your home? * PCP FRISIAN * [facility] [address] * Preadmission Environment Home with Family * ADLs Partial Dependent * Partial ADLs (Assistance needed) Bathing Dressing * Equipment Walker * List name and contact numbers for known caregivers / representatives who currently or will assist patient after discharge: MARAÍ ERICKSON -MEERA - [phone] * Verbal permission to speak to the caregivers and representatives has been obtained from the patient. N/A * Community resources currently utilized Home Health * Please name any agencies selected above. [facility] * Additional services required to return to the preadmission environment? No * Can the patient safely return to the preadmission environment? Yes * Has this patient been hospitalized within the prior 30 days at any hospital? No Last DP export: 03/26/18 11:35 Patient Name: URI KNIGHT Page [phone] at 1243 All edits/amendments must be made on the electronic document DICTATION DATE: 03/26/181241 MACHINE PROGRAMMER: NESSA 03/26/181241 RPT#: [id number] DC DATE: STATUS: ADM IN [facility] [address] [place] [address] END OF REPORT
[2018-03-26 15:30] VITALS: BP 159/80
[2018-03-26] MEDS ORDERED: COUMADIN5 MG PO (17:04)
[2018-03-26] MEDS ORDERED: LEVEMIR IN100 UNITS/ SC (17:05)
[2018-03-26] MEDS ORDERED: ULTRAM50 MG PO (17:06)
--- NOTE | 2018-03-27 16:14 | MORECARE ---
CASE MANAGEMENT DISCHARGE SUMMARY PATIENT: URI KNIGHT UNIT: [id number] ADM DATE: 03/20/18 AGE: 83 : 36 SEX: M ROOM/BED: D.1204 AUTHOR: JUAN ALFARO PHYSICIAN: REFERRING PHYSICIAN: ANGELA BERNSTEIN MD DATE OF SERVICE: 03/27/18 Discharge Plan Patient Name: URI KNIGHT Facility: [facility]:[place] : 1935 Planned Disposition: Inpatient Rehab Facility Anticipated Discharge Date: Discharge Date: 03/26/2018 Expected LOS: Initial Reviewer: [email or web address] Initial Review Date: 03/26/2018 Generated: 03/27/18 5:14 pm Comments DCP- Discharge Planning Updated by [email or web address]: Annika Hernandez on 03/26/18 11:[address] Patient Name: URI KNIGHT Admission Status: ER Accout number: [id number] Admission Date: 03-20-2018 : 1935 Admission Diagnosis:PNEUMONIA, UNSPECIFIED ORGANISM Attending: ANGELA BERNSTEIN Current LOS: 6 Anticipated DC Date: Planned Disposition: Inpatient Rehab Facility Primary Insurance: MEDICARE A & B Discharge Planning Comments: CM spoke with patient regarding discharge planning. Patient states he wants to go to inpatient rehab before discharging home. Patient states he had [facility] prior to admission. CM received call from Hans that patient was accepted to inpatient rehab. CM will call Dr. Bernstein office and let him know patient was approved for rehab. CM will continue to follow and assist as needed with discharge planning / needs. Chief Engineer Research: Annika Hernandez DCP- Discharge Planning Updated by [email or web address]: La Nena Dubon on 03/25/18 5:[address] LATE ENTRY 1640 THE REHAB SCREENERS, HANS AND WILL, CAME TO THE UNIT TO REVIEW AND ASSESS THE PATIENT. HIS WAS APPARENTLY IN THE ROOM AND THEY SPOKE W/ HER. THE PLAN IS FOR POSSIBLE ACUTE REHAB ADMIT. HE HAS BEEN TO [facility] PREVIOUSLY AND THE SIGNED HIM OUT EARLY. THE SCREENER DISCUSSED HE NEEDS TO COMPLETE THE REHAB COURSE. SHE STATES SHE UNDERSTANDS. DCP- Discharge Planning Updated by [email or web address]: La Nena Dubon on 03/25/18 1:[address] CM VISITED AT THE BEDSIDE TO DISCUSS DISCHARGE PLANS. PATIENT WAS ALONE IN HIS ROOM. HE WAS VERY SLOW TO ANSWER. HIS ANSWERS WERE INCONSISTENT. HE STATED HE HAD BEEN ON HOSPICE BUT DID NOT KNOW THE PROVIDER'S NAME. STATED JOSH WAS HIS PHRAMACY. CM ASK IF I COULD SPEAK WITH A FAMILY MEMBER. HE SAID YES. STATED HIS SHOULD BE BACK SOON. SPOKE WITH HIS NURSE. SHE STATED HE DOES NOT ANSWER QUESTIONS WELL. CM WILL F/U WITH THE . TC TO REHAB REGARDING AN UPDATE. LEFT VOICE MAIL MESSAGE AT 1167. AWAITING CB. REVIEWED PHYSICAL THERAPY NOTES- PATIENT IS MAX ASSIST SUPINE TO SIT AND MAX ASSIST TRANSFER TO CHAIR. NOTED O2 SAT IS 91-92 AT REST. CM TO FOLLOW. DCPIA - Discharge Planning Initial Assessment Updated by [email or web address]: Annika Hernandez on 03/26/18 12:28 pm * Is the patient Alert and Oriented? Yes * How many steps to enter\exit or inside your home? * PCP IRISH * Pharmacy [facility] * Preadmission Environment Home with Family * ADLs Partial Dependent * Partial ADLs (Assistance needed) Bathing Dressing * Equipment Walker * List name and contact numbers for known caregivers / representatives who currently or will assist patient after discharge: MARÍA ERICKSON -DAUGHTER - [phone] * Verbal permission to speak to the caregivers and representatives has been obtained from the patient. N/A * Community resources currently utilized Home Health * Please name any agencies selected above. [facility] * Additional services required to return to the preadmission environment? No * Can the patient safely return to the preadmission environment? Yes * Has this patient been hospitalized within the prior 30 days at any hospital? No Last DP export: 03/26/18 11:43 Patient Name: URI KNIGHT Page [phone] at 3124 All edits/amendments must be made on the electronic document DICTATION DATE: 03/27/181613 LETTER OF CREDIT CLERK: NESSA 03/27/181613 RPT#: [id number] DC DATE:03/26/18 STATUS: DIS IN [facility] [address] [place] [address] END OF REPORT
== END 2018-03-26 18:43 | DRG 202 ==
LOC: D.ER 09:10 → D.M3 11:37
PROVIDERS: Family Medicine; ADMIT Family Medicine
PROC: 3E0U33Z Introduction of Anti-inflammatory into Joints, Percutaneous Approach (ICD-10-PCS; principal; 2018-03-25)
PROC: 3E0U3BZ Introduction of Anesthetic Agent into Joints, Percutaneous Approach (ICD-10-PCS; 2018-03-25)
DX: J40 Bronchitis, not specified as acute or chronic (principal); J18.9 Pneumonia, unspecified organism; R53.1 Weakness; M75.111 Incomplete rotator cuff tear or rupture of right shoulder, not specified as traumatic; R41.0 Disorientation, unspecified; E11.65 Type 2 diabetes mellitus with hyperglycemia; G72.9 Myopathy, unspecified; N28.9 Disorder of kidney and ureter, unspecified; I48.91 Unspecified atrial fibrillation; I25.119 Atherosclerotic heart disease of native coronary artery with unspecified angina pectoris; E78.5 Hyperlipidemia, unspecified; Z95.1 Presence of aortocoronary bypass graft; Z86.73 Personal history of transient ischemic attack (TIA), and cerebral infarction without residual deficits

== ENCOUNTER 2018-03-26 18:10 | Inpatient (IN) | payer MEDICARE, BC ==
[~2018-03-26] VITALS: Ht 182.9 cm; Wt 113.4 kg
[~2018-03-26 18:10] MED LIST changes: +GEMFIBROZIL600 MG PO; +LEVEMIR IN100 UNITS/ SC; +ULTRAM50 MG PO
[2018-03-26 19:00] VITALS: BP 147/67
[2018-03-26 20:02] VITALS: BP 147/67; BMI 34.0
[2018-03-27 07:13] LABS: BASOPHILS 0.3 % (0-2); EOSINOPHILS 2.2 % (0-7); HEMOGLOBIN 13.7 g/dL (13.5-17.5); IMMATURE GRANULOCYTES 0.8 % (0-5); LYMPHOCYTES 13.1 % (15-50); MCH 30.9 pg (26.0-34.0); MCHC 33.4 g/dL (31.0-37.0); MCV 92.6 fL (80.0-100.0); MEAN PLATELET VOLUME 11.3 fL (7.4-10.4); MONOCYTES 9.3 % (2-11); NEUTROPHILS 74.3 % (40-80); RBC 4.43 10x6/uL (4.20-6.10); RDW 13.6 % (11.5-14.5); WBC 10.8 10x3/uL (4.8-10.8)
[2018-03-27 07:18] LABS: PLATELET COUNT 255 10x3/uL (130-400)
[2018-03-27 07:21] LABS: ANION GAP 14.7 mmol/L (8-16); CARBON DIOXIDE 26.4 mmol/L (21.0-32.0); CREATININE - SERUM 1.8 mg/dL (0.6-1.3); POTASSIUM - SERUM 5.1 mmol/L (3.5-5.1)
[2018-03-27 08:00] VITALS: BP 184/91
[2018-03-27 13:17] VITALS: Ht 182.9 cm; Wt 113.4 kg
[2018-03-27 19:00] VITALS: BP 147/75
[2018-03-28 06:58] LABS: INR 1.84 (0.85-1.17); PROTIME 20.6 SECONDS (11.6-15.0)
[2018-03-28 08:00] VITALS: BP 154/82
[2018-03-28 19:00] VITALS: BP 131/66
[2018-03-29 07:10] LABS: BASOPHILS 0.4 % (0-2); EOSINOPHILS 2.9 % (0-7); HEMATOCRIT 39.6 % (42.0-54.0); HEMOGLOBIN 13.2 g/dL (13.5-17.5); IMMATURE GRANULOCYTES 0.8 % (0-5); LYMPHOCYTES 23.7 % (15-50); MCH 30.8 pg (26.0-34.0); MCHC 33.3 g/dL (31.0-37.0); MCV 92.3 fL (80.0-100.0); MEAN PLATELET VOLUME 10.7 fL (7.4-10.4); MONOCYTES 8.4 % (2-11); NEUTROPHILS 63.8 % (40-80); PLATELET COUNT 244 10x3/uL (130-400); RBC 4.29 10x6/uL (4.20-6.10); RDW 13.8 % (11.5-14.5)
[2018-03-29 07:21] LABS: INR 2.2 (0.85-1.17); PROTIME 23.7 SECONDS (11.6-15.0)
[2018-03-29 07:24] LABS: ANION GAP 14.7 mmol/L (8-16); CALCIUM 9.9 mg/dL (8.5-10.1); CREATININE - SERUM 2.2 mg/dL (0.6-1.3); POTASSIUM - SERUM 4.7 mmol/L (3.5-5.1)
[2018-03-29 08:00] VITALS: BP 125/73
[2018-03-29 19:00] VITALS: BP 136/77
[2018-03-30 07:23] LABS: INR 2.53 (0.85-1.17); PROTIME 26.6 SECONDS (11.6-15.0)
[2018-03-30 08:00] VITALS: BP 147/82
[2018-03-30 22:15] VITALS: BP 129/65
[2018-03-31 07:39] LABS: INR 2.6 (0.85-1.17); PROTIME 27.1 SECONDS (11.6-15.0)
[2018-03-31 11:27] VITALS: BP 149/78
[2018-03-31 23:39] VITALS: BP 125/66
[2018-04-01 06:54] LABS: BASOPHILS 0.6 % (0-2); EOSINOPHILS 1.9 % (0-7); HEMATOCRIT 46.3 % (42.0-54.0); HEMOGLOBIN 15.1 g/dL (13.5-17.5); IMMATURE GRANULOCYTES 1.1 % (0-5); LYMPHOCYTES 25.6 % (15-50); MCH 30.5 pg (26.0-34.0); MCHC 32.6 g/dL (31.0-37.0); MCV 93.5 fL (80.0-100.0); MEAN PLATELET VOLUME 10.8 fL (7.4-10.4); MONOCYTES 6.3 % (2-11); NEUTROPHILS 64.5 % (40-80); PLATELET COUNT 289 10x3/uL (130-400); RBC 4.95 10x6/uL (4.20-6.10); RDW 13.9 % (11.5-14.5); WBC 10.7 10x3/uL (4.8-10.8)
[2018-04-01 07:02] LABS: ANION GAP 15.9 mmol/L (8-16); CALCIUM 10.4 mg/dL (8.5-10.1); CARBON DIOXIDE 25.8 mmol/L (21.0-32.0); CREATININE - SERUM 2.1 mg/dL (0.6-1.3); POTASSIUM - SERUM 4.7 mmol/L (3.5-5.1)
[2018-04-01 07:07] LABS: INR 2.59 (0.85-1.17)
[2018-04-01 07:29] VITALS: BP 129/74
[2018-04-01 19:02] VITALS: BP 140/65
[2018-04-02 06:59] LABS: PROTIME 30.4 SECONDS (11.6-15.0)
[2018-04-02 07:55] VITALS: BP 147/77
[2018-04-02 21:00] VITALS: BP 151/78
[2018-04-03 06:09] LABS: BASOPHILS 0.2 % (0-2); EOSINOPHILS 1.5 % (0-7); HEMATOCRIT 42.9 % (42.0-54.0); HEMOGLOBIN 14.2 g/dL (13.5-17.5); IMMATURE GRANULOCYTES 0.7 % (0-5); LYMPHOCYTES 17.6 % (15-50); MCH 30.7 pg (26.0-34.0); MCHC 33.1 g/dL (31.0-37.0); MCV 92.9 fL (80.0-100.0); MEAN PLATELET VOLUME 10.8 fL (7.4-10.4); MONOCYTES 9.7 % (2-11); NEUTROPHILS 70.3 % (40-80); PLATELET COUNT 239 10x3/uL (130-400); RBC 4.62 10x6/uL (4.20-6.10); RDW 13.9 % (11.5-14.5); WBC 11.1 10x3/uL (4.8-10.8)
[2018-04-03 06:22] LABS: ANION GAP 16.7 mmol/L (8-16); CALCIUM 10.1 mg/dL (8.5-10.1); CARBON DIOXIDE 23.5 mmol/L (21.0-32.0); POTASSIUM - SERUM 5.2 mmol/L (3.5-5.1)
[2018-04-03 06:24] LABS: INR 2.57 (0.85-1.17); PROTIME 26.8 SECONDS (11.6-15.0)
[2018-04-03 08:00] VITALS: BP 131/79
[2018-04-03 20:00] VITALS: BP 111/69
[2018-04-04 07:10] LABS: INR 2.6 (0.85-1.17); PROTIME 27.1 SECONDS (11.6-15.0)
[2018-04-04 08:00] VITALS: BP 150/69
--- NOTE | 2018-04-04 15:04 | RHP ---
PATIENT: URI KNIGHT MEDICAL RECORD: [id number] ACCOUNT: [id number] LOCATION:[facility]1115 : 37 ADMISSION DATE: 03/26/18 REHABILITATION HISTORY AND PHYSICAL EXAMINATION POST ADMISSION PHYSICIAN EXAMINATION POST-ADMISSION PHYSICAL EXAMINATION AND HISTORY AND PHYSICAL DATE OF ADMISSION: 03/26/2018 ADMITTING DIAGNOSIS: Debility with acute myopathy. HISTORY OF PRESENT ILLNESS: The patient is admitted to inpatient rehab with debility. He is an 83-year-old gentleman with diabetes, history of CVA and AFib. The patient was debilitated for some time, but able to walk using a rolling walker at home. He states he became more weak 3-4 days prior to acute hospital admit on 03/20. He had fallen a couple of days. There was no reported injury except for some right shoulder pain. He did have an orthopedic consult and MRI of his shoulder was done. It showed a partial-thickness articular surface tear to the supraspinatus tendon, also anterior and labral tear noted. He had a small joint effusion. He had steroid injection on 03/25. He had been running some fever on and off with minimal cough, but his chest x-ray was normal. His pO2 was low on room air. He would desaturate even lying supine. His BNP was elevated at 2766. He is currently using supplemental O2. He has got no oxygen at home. He is having problems with shoulder pain, acute confusion, uncontrolled diabetes, self-care deficit, impaired mobility, debility, and new-onset bowel incontinence. These are all barriers to discharge at this time. He lives with his . He was moderately independent to independent with rolling walker and mobility at home. His ADLs, he was independent with these. He is currently set up for max assist with ADLs, [id number] assist with mobility. He and his understand the plan of care and plan for him to return home after his acute inpatient rehab stay at his prior level of functioning with home health. He has been on our rehab unit before and actually gotten pretty good results. Comorbidities in this patient include right shoulder supraspinatus tear. He has got a history of febrile illness, bronchitis, remote CVA, aortic stenosis, peripheral vascular disease, hyperlipidemia, acute confusion, leukocytosis, balance problems, diabetes, myopathy, weakness, renal insufficiency, fever, frequent falls, and acute mental status changes. PAST MEDICAL HISTORY: Significant for essential hypertension, diabetes, dementia, coronary artery disease. He is post aortic valve replacement, sick sinus syndrome, gait disturbance, electrolyte abnormalities, glaucoma, TIA, dizziness, arthritis, chronic back pain, and peripheral vascular disease. PAST SURGICAL HISTORY: Includes angioplasty with stents, coronary artery bypass grafting, carotid arthrectomy. He has had aortic valve replacement, cataracts, total knee replacement, and carpal tunnel repair. ALLERGIES: No known drug allergies. CURRENT MEDICATIONS: He is on warfarin 5 mg daily. He is on Januvia 100 mg daily, meloxicam 15 mg daily, Lopid 600 b.i.d., omega-3 fish oil 1 cap b.i.d., Ultram 100 mg every 6 hours p.r.n., Antivert 25 mg b.i.d. p.r.n. He is on an intermediate resistant sliding scale with Humalog. He is on Levemir 55 units HISTORY AND PHYSICAL [id number] KNIGHT,URI q.h.s., and Neurontin 300 mg b.i.d. HABITS: No current alcohol or tobacco use. FAMILY HISTORY: Noncontributory. SOCIAL HISTORY: The patient hopes to return back home and get back to his prior level of functioning. REVIEW OF SYSTEMS: GENERAL: Does complain of weakness and fatigue. HEENT: Denies cold, cough, or congestion. CARDIOVASCULAR: Denies chest pain. PHYSICAL EXAMINATION: VITAL SIGNS: Stable. He is afebrile. Blood pressure 147/67. GENERAL: A large gentleman, in no acute distress, alert upon exam. HEENT: Normocephalic and atraumatic. Mucosa moist. NECK: Supple. No lymphadenopathy. LUNGS: Clear in the upper bob. HEART: Regular rate and rhythm. He is noted to have a mechanical valve. ABDOMEN: Soft, benign, nontender, nondistended. Positive bowel sounds times 4. EXTREMITIES: No clubbing, cyanosis, or edema. Does have pain to palpation along his right shoulder and movement of this. NEUROLOGIC: Does have noted proximal muscle weakness. LABORATORY DATA: White count is 10.8, H&H of 13 and 41, and platelet count is noted to be 255. His sodium is 136, potassium is 5.1, BUN and creatinine of 44 and 1.8, and blood sugar was noted to be 220. His INR is 1.41. ASSESSMENT: This is an 83-year-old gentleman admitted to the rehab with a working diagnosis of debility and myopathy. The patient has potential to make improvement. We will institute the following multidisciplinary therapies including, but not limited to physical, occupational, respiratory, speech, nutritional services, prosthetics and orthotics. Given his complex medical condition and risks for more complications, rehabilitation services cannot be provided at a low level of care such as a fpc facility. PLAN: 1. Admit to [facility] for intensive inpatient therapy to include the following disciplines: A. Physical therapy to improve gait, all transfer skills and bed mobility to a modified independent level. B. Occupational therapy to improve activities of daily living to a modified independent level. C. Case management to assist with discharge planning and placement options. D. Nutrition to assist with nutritional needs. E. Rehabilitation nursing to assist in monitoring the patient's underlying medical conditions and to assist with any type of bowel or bladder management. 2. The patient's current medications and medical care will be continued. 3. The patient will be placed on standard fall precautions. 4. The patient's estimated length of stay is approximately 7-10 days. 5. We will discuss this patient during care team staff meeting this week, and I will follow up in the a.m. I will also watch his levels closely and to get his INR back up above 2.5. HISTORY AND PHYSICAL [id number] URI KNIGHT TRANSINT:[id number] Voice Confirmation ID: [id number] DOCUMENT ID: [id number] DEMARCUS notes whether there has been none or any medical/functional change since admission: - No change since prescreen. DEMARCUS attests patient continues to be appropriate for IRF: - Continues to be appropriate. RAMSES ESTEVEZ MD at 1504 CC: [id number] DICTATION DATE: 03/27/18 0846 SWEAT BAND SEWER: 03/27/18 1205 ADM IN [facility] [address] [place] [address]
[2018-04-05 08:00] VITALS: BP 129/67
[2018-04-05 08:34] LABS: BASOPHILS 0.5 % (0-2); EOSINOPHILS 1.9 % (0-7); HEMATOCRIT 41.7 % (42.0-54.0); HEMOGLOBIN 13.7 g/dL (13.5-17.5); IMMATURE GRANULOCYTES 0.5 % (0-5); LYMPHOCYTES 22.2 % (15-50); MCH 30.6 pg (26.0-34.0); MCHC 32.9 g/dL (31.0-37.0); MCV 93.1 fL (80.0-100.0); MEAN PLATELET VOLUME 10.7 fL (7.4-10.4); MONOCYTES 9.3 % (2-11); NEUTROPHILS 65.6 % (40-80); PLATELET COUNT 217 10x3/uL (130-400); RBC 4.48 10x6/uL (4.20-6.10); RDW 14.1 % (11.5-14.5); WBC 9.4 10x3/uL (4.8-10.8)
[2018-04-05 08:45] LABS: INR 2.83 (0.85-1.17)
[2018-04-05 08:46] LABS: ANION GAP 15.1 mmol/L (8-16); CALCIUM 9.9 mg/dL (8.5-10.1); CARBON DIOXIDE 25.9 mmol/L (21.0-32.0); CREATININE - SERUM 2.1 mg/dL (0.6-1.3)
[2018-04-05 18:45] VITALS: BP 168/82
[2018-04-06 07:12] LABS: INR 2.68 (0.85-1.17); PROTIME 27.8 SECONDS (11.6-15.0)
[2018-04-06 08:00] VITALS: BP 101/49
[2018-04-06 19:30] VITALS: BP 151/61
[2018-04-07 07:01] LABS: INR 2.27 (0.85-1.17); PROTIME 24.3 SECONDS (11.6-15.0)
[2018-04-07 08:00] VITALS: BP 133/77
[2018-04-07 19:30] VITALS: BP 138/80
[2018-04-08 06:05] LABS: BASOPHILS 0.4 % (0-2); EOSINOPHILS 1.8 % (0-7); HEMATOCRIT 40.8 % (42.0-54.0); HEMOGLOBIN 13.3 g/dL (13.5-17.5); IMMATURE GRANULOCYTES 0.4 % (0-5); LYMPHOCYTES 29.3 % (15-50); MCH 30.3 pg (26.0-34.0); MCHC 32.6 g/dL (31.0-37.0); MCV 92.9 fL (80.0-100.0); MEAN PLATELET VOLUME 11.1 fL (7.4-10.4); MONOCYTES 12.1 % (2-11); PLATELET COUNT 203 10x3/uL (130-400); RBC 4.39 10x6/uL (4.20-6.10); RDW 13.7 % (11.5-14.5); WBC 7.4 10x3/uL (4.8-10.8)
[2018-04-08 06:21] LABS: ANION GAP 14.7 mmol/L (8-16); CALCIUM 9.9 mg/dL (8.5-10.1); CARBON DIOXIDE 24.8 mmol/L (21.0-32.0); CREATININE - SERUM 2.2 mg/dL (0.6-1.3); POTASSIUM - SERUM 4.5 mmol/L (3.5-5.1)
[2018-04-08 06:23] LABS: INR 1.92 (0.85-1.17); PROTIME 21.3 SECONDS (11.6-15.0)
[2018-04-08 08:22] VITALS: BP 142/83
[2018-04-08 19:30] VITALS: BP 141/75
[2018-04-09 07:12] LABS: INR 2.02 (0.85-1.17); PROTIME 22.2 SECONDS (11.6-15.0)
[2018-04-09 08:00] VITALS: BP 129/70
[2018-04-09 19:00] VITALS: BP 156/82
[2018-04-10 06:10] LABS: INR 2.39 (0.85-1.17); PROTIME 25.3 SECONDS (11.6-15.0)
[2018-04-10 08:00] VITALS: BP 140/81
[2018-04-10] MEDS ORDERED: ACETAMINOPHEN325 MG PO (11:39)
[2018-04-10] MEDS ORDERED: CALMOSEPTINE OI71 GM TOPICAL (11:39)
== END 2018-04-10 12:37 | DRG 948 ==
LOC: D.REHAB 18:10
PROVIDERS: ADMIT Emergency Medicine
DX: R53.81 Other malaise (principal); G72.9 Myopathy, unspecified; I10 Essential (primary) hypertension; I35.0 Nonrheumatic aortic (valve) stenosis; I73.9 Peripheral vascular disease, unspecified; R26.9 Unspecified abnormalities of gait and mobility; N28.9 Disorder of kidney and ureter, unspecified; R53.1 Weakness; R50.9 Fever, unspecified; R41.82 Altered mental status, unspecified; R15.9 Full incontinence of feces; M75.101 Unspecified rotator cuff tear or rupture of right shoulder, not specified as traumatic; Z91.81 History of falling; E11.65 Type 2 diabetes mellitus with hyperglycemia; M19.011 Primary osteoarthritis, right shoulder; J40 Bronchitis, not specified as acute or chronic; R09.02 Hypoxemia; Z95.2 Presence of prosthetic heart valve; Z95.1 Presence of aortocoronary bypass graft; E78.5 Hyperlipidemia, unspecified; D72.829 Elevated white blood cell count, unspecified

== ENCOUNTER 2018-05-06 16:29 | Inpatient (IN) | payer MEDICARE, BC ==
[~2018-05-06] VITALS: Ht 182.9 cm; Wt 113.6 kg
[~2018-05-06 16:29] MED LIST changes: +ACETAMINOPHEN325 MG PO; +CALMOSEPTINE OI71 GM TOPICAL
[2018-05-06 19:06] LABS: BASOPHILS 0.8 % (0-2); EOSINOPHILS 4.6 % (0-7); HEMOGLOBIN 11.5 g/dL (13.5-17.5); IMMATURE GRANULOCYTES 0.6 % (0-5); LYMPHOCYTES 32.5 % (15-50); MCHC 31.9 g/dL (31.0-37.0); MEAN PLATELET VOLUME 11.2 fL (7.4-10.4); MONOCYTES 9.1 % (2-11); NEUTROPHILS 52.4 % (40-80); PLATELET COUNT 210 10x3/uL (130-400); RBC 3.83 10x6/uL (4.20-6.10); RDW 14.6 % (11.5-14.5); WBC 6.6 10x3/uL (4.8-10.8)
[2018-05-06 19:14] LABS: INR 3.01 (0.85-1.17); PROTIME 30.4 SECONDS (11.6-15.0)
[2018-05-06 19:22] LABS: ANION GAP 15.6 mmol/L (8-16); CALCIUM 8.7 mg/dL (8.5-10.1); CARBON DIOXIDE 23.3 mmol/L (21.0-32.0); CREATININE - SERUM 2.5 mg/dL (0.6-1.3); POTASSIUM - SERUM 4.9 mmol/L (3.5-5.1)
[2018-05-06 20:00] VITALS: BP 146/75
[2018-05-06 20:23] VITALS: BP 117/61; BMI 34.0
[2018-05-07 04:00] VITALS: BP 149/72
[2018-05-07 05:27] LABS: APPEARANCE CLEAR (CLEAR); BILIRUBIN NEGATIVE (NEGATIVE); COLOR YELLOW (YELLOW); GLUCOSE NEGATIVE (NEGATIVE); KETONE NEGATIVE (NEGATIVE); NITRITE NEGATIVE (NEGATIVE); PROTEIN NEGATIVE (NEGATIVE); UROBILINOGEN NORMAL (NORMAL)
[2018-05-07 05:28] LABS: BACTERIA FEW /hpf (NONE SEEN); EPITHELIAL CELLS 0-5 /hpf (0-5); RED CELLS - URINE 0-5 /hpf (0-5); WHITE CELLS - URINE NSEEN /hpf (0-5)
[2018-05-07 08:37] VITALS: BP 143/78
[2018-05-07 08:46] VITALS: Ht 182.9 cm; Wt 113.6 kg
[2018-05-07 11:58] VITALS: BP 134/70
[2018-05-07 20:00] VITALS: BP 145/76
[2018-05-08] VITALS: BP 145/70
[2018-05-08 04:00] VITALS: BP 91/56
[2018-05-08 05:19] LABS: BASOPHILS 0.5 % (0-2); HEMOGLOBIN 12.6 g/dL (13.5-17.5); IMMATURE GRANULOCYTES 0.7 % (0-5); LYMPHOCYTES 34.1 % (15-50); MCH 30.1 pg (26.0-34.0); MCHC 31.5 g/dL (31.0-37.0); MCV 95.5 fL (80.0-100.0); MEAN PLATELET VOLUME 10.6 fL (7.4-10.4); MONOCYTES 8.7 % (2-11); PLATELET COUNT 218 10x3/uL (130-400); RBC 4.19 10x6/uL (4.20-6.10); RDW 14.5 % (11.5-14.5); WBC 7.5 10x3/uL (4.8-10.8)
[2018-05-08 05:45] LABS: ANION GAP 16.1 mmol/L (8-16); CALCIUM 8.5 mg/dL (8.5-10.1); CARBON DIOXIDE 22.7 mmol/L (21.0-32.0); CREATININE - SERUM 2.1 mg/dL (0.6-1.3); POTASSIUM - SERUM 4.8 mmol/L (3.5-5.1); VANCOMYCIN - RANDOM 11.2 ug/mL (10.0-20.0)
--- NOTE | 2018-05-08 07:37 | HP ---
PATIENT: URI KNIGHT MEDICAL RECORD: [id number] ACCOUNT: [id number] LOCATION:[facility] : [birth year] ADMISSION DATE: 05/06/18 PCP: ANGELA NEWTON MD HISTORY AND PHYSICAL EXAMINATION REASON FOR ADMISSION: Pain and swelling in his right leg. HISTORY OF PRESENT ILLNESS: The patient is a type 2 diabetic male who had just been discharged from rehab at a local nursing facility. He saw me in the office last week and had some confusion about his insulin dosage. We reviewed that with him. He noted he has some mild erythema in his right upper inner thigh. It was not fluctuant. His skin was intact. He was placed on oral Bactrim and told to follow up in the office today. Home health notes he had a draining central wound that had developed over the weekend. He is now directly admitted for cellulitis and possible I&D. He denies recent fever, but is having significant pain in the area. PAST MEDICAL HISTORY: Type 2 diabetes mellitus, remote CVA with cognitive dysfunction, history of atrial fibrillation, essential hypertension, CAD, BPH, sick sinus syndrome with pacemaker, chronic gait disturbance from CVA, hypomagnesemia, hospitalized in 2016 for altered mental status from UTI, carotid occlusive disease, admitted in November of 2017 for pneumonia, history of glaucoma, and post-aortic valve replacement. PAST SURGICAL HISTORY: Coronary artery bypass grafting, carotid endarterectomy, aortic valve replacement, total knee replacement bilaterally, angioplasty for peripheral vascular disease, cataract lens implants of both eyes, and carpal tunnel repair. SOCIAL HISTORY: . Lives at home with his . He is becoming very hard for her to care for despite her best efforts. He is a nonsmoker and nondrinker, but requires help with most of his ADLs and all of his medications. FAMILY HISTORY: Mother of CAD. Father had lung disease, was a smoker. ALLERGIES: None mentioned. HOME MEDICATIONS: Meloxicam 15 mg daily, tramadol 50 mg at bedtime for pain, Lopid 600 mg p.o. b.i.d., glipizide 10 mg two p.o. b.i.d., Januvia 100 mg a day, Flomax 0.4 mg at bedtime, Levemir 30 units at bedtime, NovoLog sliding scale insulin per insulin intermediate dosing, Coumadin 5 mg on Sunday and and 2.5 mg on other days, gabapentin 600 mg two caps b.i.d., and fish oil one capsule p.o. daily. REVIEW OF SYSTEMS: GENERAL: He has been generally fatigued. No recent fever. HEENT: No recent new visual change, sinus congestion, or sore throat. He does have some hearing difficulty. RESPIRATORY: No cough or congestion. CARDIAC: No chest pain, but has had increased edema in his right upper thigh. Denies PND. He sleeps on one pillow at night. ENDOCRINE: Denies polyuria, polydipsia, heat or cold intolerance, or weight change. GENITOURINARY: He has nocturia once or twice nightly with decreased voiding stream. He denies any recent urine odor or dysuria. HISTORY AND PHYSICAL [id number] URI KNIGHT NEUROLOGIC: He has remote history of stroke, TIA, and has chronic gait disturbance as a result. He has poor insight. PSYCHIATRIC: He has depressed mood. PHYSICAL EXAMINATION: VITAL SIGNS: His temperature is 98 degrees Fahrenheit, heart rate is 80 and regular, respirations are 18, and blood pressure is 140/90. GENERAL: The patient is alert and oriented. HEENT: Eyes are clear with lens implants in both eyes. Sclerae are nonicteric. Oropharynx unremarkable. NECK: Supple. CHEST: Distant breath sounds without wheeze. HEART: Irregular rate without gallop. II/ aortic systolic murmur is noted. ABDOMEN: Soft, obese, and nontender. No organomegaly. GENITOURINARY: On his right groin, he has erythema and he has a 6 x 10 area of erythema in the upper inner thigh with central peau d'orange appearance. He also has a quarter-sized discolored area that appears necrotic centrally. Distal extremities show 2+ edema, which is chronic. NEUROLOGIC: He is oriented to person, place, and time. Cranial nerves are grossly intact. Gait was not tested today. LABORATORY DATA: Currently pending. ASSESSMENT: Cellulitis, right upper thigh, failing outpatient therapy; history of diabetes mellitus; history of AVR; atrial fibrillation; hypertension; mild cognitive impairment; and remote CVA. PLAN: The patient will be admitted for wound care. Surgical consult for possible I&D. Also have sliding scale insulin and IV antibiotics until cultures return. TRANSINT:[id number] Voice Confirmation ID: [id number] DOCUMENT ID: [id number] ANGELA NEWTON MD at 0737 CC: [id number] DICTATION DATE: 05/06/181758 FORGING MACHINE HAND: 05/06/18 1848 ADM IN [place] [place] [address] [place] [address]
[2018-05-08 08:30] VITALS: BP 150/79
[2018-05-08 14:05] VITALS: BP 136/64
[2018-05-08 17:14] VITALS: BP 138/69
[2018-05-08 21:44] VITALS: BP 133/63
[2018-05-09 01:37] VITALS: BP 140/63
[2018-05-09 04:48] VITALS: BP 121/71
[2018-05-09 08:30] VITALS: BP 121/65
--- NOTE | 2018-05-09 12:20 | MORECARE ---
CASE MANAGEMENT DISCHARGE SUMMARY PATIENT: URI KNIGHT UNIT: [id number] ADM DATE: 05/06/18 AGE: 83 : 36 SEX: M ROOM/BED: D.2206 AUTHOR: JUAN ALFARO PHYSICIAN: REFERRING PHYSICIAN: ANGELA NEWTON MD DATE OF SERVICE: 05/09/18 Discharge Plan Patient Name: URI KNIGHT [facility] [facility] 1935 Planned Disposition: Anticipated Discharge Date: Discharge Date: Expected LOS: Initial Reviewer: [email or web address] Initial Review Date: 05/06/2018 Generated: 05/09/18 1:19 pm Patient Name: URI KNIGHT Page [phone] at 1220 All edits/amendments must be made on the electronic document DICTATION DATE: 05/09/18 1219 CRIME LAB TECHNICIAN: NESSA 05/09/18 1219 RPT#: [id number] DC DATE: STATUS: ADM IN [facility] [address] [place] [address] END OF REPORT
--- NOTE | 2018-05-09 12:27 | MORECARE ---
CASE MANAGEMENT DISCHARGE SUMMARY PATIENT: URI KNIGHT UNIT: [id number] ADM DATE: 05/06/18 AGE: 83 : 36 SEX: M ROOM/BED: D.2206 AUTHOR: JUAN ALFARO PHYSICIAN: REFERRING PHYSICIAN: ANGELA NEWTON MD DATE OF SERVICE: 05/09/18 Discharge Plan Patient Name: URI KNIGHT [facility] [facility] 1935 Planned Disposition: Anticipated Discharge Date: Discharge Date: Expected LOS: Initial Reviewer: [email or web address] Initial Review Date: 05/06/2018 Generated: 05/09/18 1:27 pm Comments DCP- Discharge Planning Updated by [email or web address]: Annamarie Lopez on 05/09/18 11:[address] Attempted to see patient, but he was not in room. Will try again at a later time Last DP export: 05/09/18 11:20 a Patient Name: URI KNIGHT Page 65096 at 1227 All edits/amendments must be made on the electronic document DICTATION DATE: 05/09/18 1227 BAKERY CLERK: NESSA 05/09/18 1227 RPT#: [id number] DC DATE: STATUS: ADM IN [facility] [address] [place] [address] END OF REPORT
[2018-05-09 12:30] VITALS: BP 134/71
--- NOTE | 2018-05-09 14:47 | MORECARE ---
CASE MANAGEMENT DISCHARGE SUMMARY PATIENT: URI KNIGHT UNIT: [id number] ADM DATE: 05/06/18 AGE: 83 : 36 SEX: M ROOM/BED: D.2206 AUTHOR: JUAN ALFARO PHYSICIAN: REFERRING PHYSICIAN: ANGELA NEWTON MD DATE OF SERVICE: 05/09/18 Discharge Plan Patient Name: URI KNIGHT [facility] [facility] 1935 Planned Disposition: Home Health Service Anticipated Discharge Date: Discharge Date: Expected LOS: Initial Reviewer: [email or web address] Initial Review Date: 05/06/2018 Generated: 05/09/18 3:47 pm Comments DCP- Discharge Planning Updated by [email or web address]: Annamarie Lopez on 05/09/18 11:[address] Attempted to see patient, but he was not in room. Will try again at a later time DCPIA - Discharge Planning Initial Assessment Updated by [email or web address]: Annamarie Lopez on 05/09/18 2:46 pm * Is the patient Alert and Oriented? Yes * PCP Albanian * Pharmacy [facility] * Preadmission Environment Home with Family * ADLs Partial Dependent * Partial ADLs (Assistance needed) Bathing Dressing * Equipment Walker * List name and contact numbers for known caregivers / representatives who currently or will assist patient after discharge: [employer] () [phone] * Verbal permission to speak to the caregivers and representatives has been obtained from the patient. Yes * Community resources currently utilized Home Health * Please name any agencies selected above. [facility] * Additional services required to return to the preadmission environment? No * Can the patient safely return to the preadmission environment? Yes * Has this patient been hospitalized within the prior 30 days at any hospital? Yes Last DP export: 05/09/18 11:27 a Patient Name: URI KNIGHT Page 78507 at 3165 All edits/amendments must be made on the electronic document DICTATION DATE: 05/09/187 COMPUTER NUMERICAL CONTROL GRINDER: NESSA 05/09/18 1447 RPT#: [id number] DC DATE: STATUS: ADM IN [facility] [address] [place] [address] END OF REPORT
--- NOTE | 2018-05-09 14:54 | MORECARE ---
CASE MANAGEMENT DISCHARGE SUMMARY PATIENT: URI KNIGHT UNIT: [id number] ADM DATE: 05/06/18 AGE: 83 : 36 SEX: M ROOM/BED: D.2206 AUTHOR: JUAN ALFARO PHYSICIAN: REFERRING PHYSICIAN: ANGELA NEWTON MD DATE OF SERVICE: 05/09/18 Discharge Plan Patient Name: URI KNIGHT Facility: [facility]:[place] : 1935 Planned Disposition: Home Health Service Anticipated Discharge Date: Discharge Date: Expected LOS: Initial Reviewer: [email or web address] Initial Review Date: 05/06/2018 Generated: 05/09/18 3:54 pm Comments DCP- Discharge Planning Updated by [email or web address]: Annamarie Lopez on 05/09/18 1:[address] Patient Name: URI KNIGHT Admission Status: Urgent Accout number: [id number] Admission Date: 05-06-2018 : 1935 Admission Diagnosis: Attending: ANGELA NEWTON Current LOS: 3 Anticipated DC Date: Planned Disposition: Home Health Service Primary Insurance: MEDICARE A & B Discharge Planning Comments: CM met with patient to assess discharge planning needs. Patient stated that he is independent with his care at home, but his stated that she is his help with some things. He has a walker that he uses and that is the only DME that he needs. He is current with [facility] and will continue that when he is discharged. His will be his uke driver home. IMM is signed and explained copy handed to them. CM will continue to follow and assist with DC planning needs. Cardiovascular Surgical Tech: Annamarie Lopez DCP- Discharge Planning Updated by [email or web address]: Annamarie Lopez on 05/09/18 11:[address] Attempted to see patient, but he was not in room. Will try again at a later time DCPIA - Discharge Planning Initial Assessment Updated by [email or web address]: Annamarie Lopez on 05/09/18 2:46 pm * Is the patient Alert and Oriented? Yes * PCP Micronesian * [facility]acy [facility] [address] * Preadmission Environment Home with Family * ADLs Partial Dependent * Partial ADLs (Assistance needed) Bathing Dressing * Equipment Walker * List name and contact numbers for known caregivers / representatives who currently or will assist patient after discharge: [employer] () [phone] * Verbal permission to speak to the caregivers and representatives has been obtained from the patient. Yes * Community resources currently utilized Home Health * Please name any agencies selected above. [facility] * Additional services required to return to the preadmission environment? No * Can the patient safely return to the preadmission environment? Yes * Has this patient been hospitalized within the prior 30 days at any hospital? Yes Coverage Notice Reviewer: [email or web address] Virginia Lopez Notice Issued Date-Time: 05/09/2018 13:57 Notice Type: IM Discharge Notice Notice Delivered To: Patient Relationship to Patient: Street Light Mechanic Name: Delivery Method: HAND - Hand Delivered Myriam Days: Prior Verbal Notification: Recipient Understood Notice: Yes Recipient Signature: Yes Med Rec Note Co-signed by Attending: Coverage Notice Comment: Last DP export: 05/09/18 1:47 p Patient Name: URI KNIGHT Page 54729 at 1454 All edits/amendments must be made on the electronic document DICTATION DATE: 05/09/18 1453 GUEST RELATIONS OFFICER: NESSA 05/09/18 1453 RPT#: [id number] DC DATE: STATUS: ADM IN [facility] [address] [place] [address] END OF REPORT
[2018-05-09 16:30] VITALS: BP 132/80
[2018-05-09 21:48] VITALS: BP 154/68
[2018-05-10 00:55] VITALS: BP 115/55
[2018-05-10 05:35] VITALS: BP 100/67
[2018-05-10 09:04] VITALS: BP 146/79
[2018-05-10 12:33] VITALS: BP 120/63
[2018-05-10 16:37] VITALS: BP 142/74
[2018-05-10 20:00] VITALS: BP 132/61
[2018-05-11] VITALS: BP 130/56
[2018-05-11 03:00] VITALS: BP 128/49
[2018-05-11 11:03] VITALS: BP 107/53
--- NOTE | 2018-05-11 11:49 | MORECARE ---
CASE MANAGEMENT DISCHARGE SUMMARY PATIENT: URI KNIGHT UNIT: [id number] ADM DATE: 05/06/18 AGE: 83 : 36 SEX: M ROOM/BED: D.2206 AUTHOR: JUAN ALFARO PHYSICIAN: REFERRING PHYSICIAN: ANGELA BERNSTEIN MD DATE OF SERVICE: 05/11/18 Discharge Plan Patient Name: URI KNIGHT Facility: [facility]:[place] : 1935 Planned Disposition: Home Health Service Anticipated Discharge Date: Discharge Date: Expected LOS: Initial Reviewer: [email or web address] Initial Review Date: 05/06/2018 Generated: 05/11/18 12:49 pm Comments DCP- Discharge Planning Updated by [id number]: Priya Barrera on 05/11/18 10:[address] DC PLAN: Referral faxed to [facility]. Received phone call from Dr. Bernstein stating that Coni at [facility] told his office nurse that the patient could go back there and that he still has days. Dr. Bernstein asked if he could dc the patient there today. ALEC spoke to Vita Nurse at [facility] who stated there was not referral sent nor did she know anything about and admission for this patient. She requested that referral be faxed and stated it would be Sunday before the referral would be reviewed. ALEC met with the patient and his to discuss discharge plan. Patient stated whatever Dr. Bernstein wanted him to do he would do. informed the patient that Dr. Bernstein has recommemded that he go to [facility] for wound care and therapy at discharge. GRUPO list of local long term given to patient and advised him it was his choice to choose his provider. He stated he just left [facility] on Apr 26, 2018 and it was his wish to return there upon discharge. Patient choice form signed and left with the patient additional signed copy placed on patient's chart. Referral faxed to [facility] and Dr. Bernstein notified that it would be Sunday before the patient would be reviewed for acceptance. Priya Barrera RN, [facility] DCP- Discharge Planning Updated by [email or web address]: Annamarie Lopez on 05/09/18 1:[address] Patient Name: URI KNIGHT Admission Status: Urgent Accout number: [id number] Admission Date: 05-06-2018 : 1935 Admission Diagnosis: Attending: ANGELA BERNSTEIN Current LOS: 3 Anticipated DC Date: Planned Disposition: Home Health Service Primary Insurance: MEDICARE A & B Discharge Planning Comments: CM met with patient to assess discharge planning needs. Patient stated that he is independent with his care at home, but his stated that she is his help with some things. He has a walker that he uses and that is the only DME that he needs. He is current with [facility] and will continue that when he is discharged. His will be his truck driver instructor home. IMM is signed and explained copy handed to them. CM will continue to follow and assist with DC planning needs. Investigative Research Specialist: Annamarie Lopez DCP- Discharge Planning Updated by [id number]: Annamarie Lopez on 05/09/18 11:[address] Attempted to see patient, but he was not in room. Will try again at a later time DCPIA - Discharge Planning Initial Assessment Updated by [id number]: Annamarie Lopez on 05/09/18 2:46 pm * Is the patient Alert and Oriented? Yes * PCP * [facility]acy [facility] [address] * Preadmission Environment Home with Family * ADLs Partial Dependent * Partial ADLs (Assistance needed) Bathing Dressing * Equipment Walker * List name and contact numbers for known caregivers / representatives who currently or will assist patient after discharge: [facility] () [phone] * Verbal permission to speak to the caregivers and representatives has been obtained from the patient. Yes * Community resources currently utilized Home Health * Please name any agencies selected above. [facility] * Additional services required to return to the preadmission environment? No * Can the patient safely return to the preadmission environment? Yes * Has this patient been hospitalized within the prior 30 days at any hospital? Yes Coverage Notice Reviewer: [id number] - Annamarie Lopez Notice Issued Date-Time: 05/09/2018 13:57 Notice Type: IM Discharge Notice Notice Delivered To: Patient Relationship to Patient: Abrasive Coating Machine Operator Name: Delivery Method: HAND - Hand Delivered Myriam Days: Prior Verbal Notification: Recipient Understood Notice: Yes Recipient Signature: Yes Med Rec Note Co-signed by Attending: Coverage Notice Comment: Last DP export: 05/09/18 1:54 p Patient Name: URI KNIGHT Page 03803 at 1149 All edits/amendments must be made on the electronic document DICTATION DATE: 05/11/18 114 BLEACH MACHINE OPERATOR: NESSA 05/11/18 114 RPT#: [id number] DC DATE: STATUS: ADM IN [facility] [address] [place] [address] END OF REPORT
--- NOTE | 2018-05-11 11:56 | MORECARE ---
CASE MANAGEMENT DISCHARGE SUMMARY PATIENT: URI KNIGHT UNIT: [id number] ADM DATE: 05/06/18 AGE: 83 : 36 SEX: M ROOM/BED: D.2206 AUTHOR: JUAN ALFARO PHYSICIAN: REFERRING PHYSICIAN: ANGELA BERNSTEIN MD DATE OF SERVICE: 05/11/18 Discharge Plan Patient Name: URI KNIGHT Facility: [facility]:[place] : 1935 Planned Disposition: Home Health Service Anticipated Discharge Date: Discharge Date: Expected LOS: Initial Reviewer: [id number] Initial Review Date: 05/06/2018 Generated: 05/11/18 12:56 pm Comments DCP- Discharge Planning Updated by [id number]: Priya Barrera on 05/11/18 10:[address] DC PLAN: Referral faxed to [facility]. Received phone call from Dr. Bernstein stating that Coni at [facility] told his office nurse that the patient could go back there and that he still has days. Dr. Bernstein asked if he could dc the patient there today. ALEC spoke to Vita Nurse at [facility] who stated there was not referral sent nor did she know anything about and admission for this patient. She requested that referral be faxed and stated it would be Sunday before the referral would be reviewed. ALEC met with the patient and his to discuss discharge plan. Patient stated whatever Dr. Bernstein wanted him to do he would do. informed the patient that Dr. Bernstein has recommemded that he go to [facility] for wound care and therapy at discharge. GRUPO list of local longterm given to patient and advised him it was his choice to choose his provider. He stated he just left [facility] on Apr 26, 2018 and it was his wish to return there upon discharge. Patient choice form signed and left with the patient additional signed copy placed on patient's chart. Referral faxed to [facility] and Dr. Bernstein notified that it would be Sunday before the patient would be reviewed for acceptance. Priya Barrera RN, [facility] DCP- Discharge Planning Updated by [email or web address]: Annamarie Lopez on 05/09/18 1:[address] Patient Name: URI KNIGHT Admission Status: Urgent Accout number: [id number] Admission Date: 05-06-2018 : 1935 Admission Diagnosis: Attending: ANGELA BERNSTEIN Current LOS: 3 Anticipated DC Date: Planned Disposition: Home Health Service Primary Insurance: MEDICARE A & B Discharge Planning Comments: CM met with patient to assess discharge planning needs. Patient stated that he is independent with his care at home, but his stated that she is his help with some things. He has a walker that he uses and that is the only DME that he needs. He is current with [facility] and will continue that when he is discharged. His will be his medical driver home. IMM is signed and explained copy handed to them. CM will continue to follow and assist with DC planning needs. Network Technical Analyst: Annamarie Lopez DCP- Discharge Planning Updated by [id number]: Annamarie Lopez on 05/09/18 11:[address] Attempted to see patient, but he was not in room. Will try again at a later time DCPIA - Discharge Planning Initial Assessment Updated by [id number]: Annamarie Lopez on 05/09/18 2:46 pm * Is the patient Alert and Oriented? Yes * PCP * Pharmacy [facility] [address] * Preadmission Environment Home with Family * ADLs Partial Dependent * Partial ADLs (Assistance needed) Bathing Dressing * Equipment Walker * List name and contact numbers for known caregivers / representatives who currently or will assist patient after discharge: [facility] () [phone] * Verbal permission to speak to the caregivers and representatives has been obtained from the patient. Yes * Community resources currently utilized Home Health * Please name any agencies selected above. [facility] * Additional services required to return to the preadmission environment? No * Can the patient safely return to the preadmission environment? Yes * Has this patient been hospitalized within the prior 30 days at any hospital? Yes Coverage Notice Reviewer: [id number] - Annamarie Lopez Notice Issued Date-Time: 05/09/2018 13:57 Notice Type: IM Discharge Notice Notice Delivered To: Patient Relationship to Patient: Cluster Bore Operator Name: Delivery Method: HAND - Hand Delivered Myriam Days: Prior Verbal Notification: Recipient Understood Notice: Yes Recipient Signature: Yes Med Rec Note Co-signed by Attending: Coverage Notice Comment: Last DP export: 05/09/18 1:54 p Patient Name: URI KNIGHT Page 38565 at 1156 All edits/amendments must be made on the electronic document DICTATION DATE: 05/11/181154 PIPING MANAGER: NESSA 05/11/181154 RPT#: [id number] DC DATE: STATUS: ADM IN [facility] [address] [place] [address] END OF REPORT
[2018-05-11 14:55] VITALS: BP 116/60
[2018-05-11 18:31] VITALS: BP 153/72
[2018-05-11 20:00] VITALS: BP 129/72
[2018-05-12] VITALS: BP 126/65
[2018-05-12 03:00] VITALS: BP 143/65
[2018-05-12 09:10] VITALS: BP 112/65
[2018-05-12 13:02] VITALS: BP 144/77
[2018-05-12 17:32] VITALS: BP 169/79
[2018-05-12 20:00] VITALS: BP 168/85
[2018-05-13] VITALS: BP 160/71
[2018-05-13 03:00] VITALS: BP 156/68
[2018-05-13 05:58] LABS: ANION GAP 14.6 mmol/L (8-16); CALCIUM 8.4 mg/dL (8.5-10.1); CARBON DIOXIDE 22.8 mmol/L (21.0-32.0); CREATININE - SERUM 1.9 mg/dL (0.6-1.3); POTASSIUM - SERUM 4.4 mmol/L (3.5-5.1); VANCOMYCIN - RANDOM 20.6 ug/mL (10.0-20.0)
--- NOTE | 2018-05-13 08:01 | MORECARE ---
CASE MANAGEMENT DISCHARGE SUMMARY PATIENT: URI KNIGHT UNIT: [id number] ADM DATE: 05/06/18 AGE: 83 : 36 SEX: M ROOM/BED: D.2206 AUTHOR: JUAN ALFARO PHYSICIAN: REFERRING PHYSICIAN: ANGELA BERNSTEIN MD DATE OF SERVICE: 05/13/18 Discharge Plan Patient Name: URI KNIGHT Facility: [facility]:[place] : 1935 Planned Disposition: Home Health Service Anticipated Discharge Date: Discharge Date: Expected LOS: Initial Reviewer: [id number] Initial Review Date: 05/06/2018 Generated: 05/13/18 9:01 am Comments DCP- Discharge Planning Updated by [id number]: Priya Barrera on 05/11/18 10:[address] DC PLAN: Referral faxed to [facility]. Received phone call from Dr. Bernstein stating that Coni at [facility] told his office nurse that the patient could go back there and that he still has days. Dr. Bernstein asked if he could dc the patient there today. ALEC spoke to Vita Nurse at [facility] who stated there was not referral sent nor did she know anything about and admission for this patient. She requested that referral be faxed and stated it would be Sunday before the referral would be reviewed. ALEC met with the patient and his to discuss discharge plan. Patient stated whatever Dr. Bernstein wanted him to do he would do. informed the patient that Dr. Bernstein has recommemded that he go to [facility] for wound care and therapy at discharge. GRUPO list of local long-term given to patient and advised him it was his choice to choose his provider. He stated he just left [facility] on Apr 26, 2018 and it was his wish to return there upon discharge. Patient choice form signed and left with the patient additional signed copy placed on patient's chart. Referral faxed to [facility] and Dr. Bernstein notified that it would be Sunday before the patient would be reviewed for acceptance. Priya Barrera RN, [facility] DCP- Discharge Planning Updated by [id number]: Annamarie Lopez on 05/09/18 1:[address] Patient Name: URI KNIGHT Admission Status: Urgent Accout number: [id number] Admission Date: 05-06-2018 : 1935 Admission Diagnosis: Attending: ANGELA BERNSTEIN Current LOS: 3 Anticipated DC Date: Planned Disposition: Home Health Service Primary Insurance: MEDICARE A & B Discharge Planning Comments: CM met with patient to assess discharge planning needs. Patient stated that he is independent with his care at home, but his stated that she is his help with some things. He has a walker that he uses and that is the only DME that he needs. He is current with [facility] and will continue that when he is discharged. His will be his motor vehicle escort driver home. IMM is signed and explained copy handed to them. CM will continue to follow and assist with DC planning needs. Tar Heater: Annamarie Lopez DCP- Discharge Planning Updated by [id number]: Annamarie Lopez on 05/09/18 11:[address] Attempted to see patient, but he was not in room. Will try again at a later time DCPIA - Discharge Planning Initial Assessment Updated by [id number]: Annamarie Lopez on 05/09/18 2:46 pm * Is the patient Alert and Oriented? Yes * PCP [place] * Pharmacy [facility] [address] * Preadmission Environment Home with Family * ADLs Partial Dependent * Partial ADLs (Assistance needed) Bathing Dressing * Equipment Walker * List name and contact numbers for known caregivers / representatives who currently or will assist patient after discharge: [facility] () [phone] * Verbal permission to speak to the caregivers and representatives has been obtained from the patient. Yes * Community resources currently utilized Home Health * Please name any agencies selected above. [facility] * Additional services required to return to the preadmission environment? No * Can the patient safely return to the preadmission environment? Yes * Has this patient been hospitalized within the prior 30 days at any hospital? Yes External Providers External Provider: [facility] Next Contact Date: Service Request Date: Service Type: Resolution: Reviewer: Comments: Coverage Notice Reviewer: [id number] - Annamarie Lopez Notice Issued Date-Time: 05/09/2018 13:57 Notice Type: IM Discharge Notice Notice Delivered To: Patient Relationship to Patient: Metal Die Finisher Name: Delivery Method: HAND - Hand Delivered Myriam Days: Prior Verbal Notification: Recipient Understood Notice: Yes Recipient Signature: Yes Med Rec Note Co-signed by Attending: Coverage Notice Comment: Last DP export: 05/11/18 10:56 am Patient Name: URI KNIGHT Page 47658 at 0801 All edits/amendments must be made on the electronic document DICTATION DATE: 05/13/18799 LINEN CHECKER: NESSA 05/13/18799 RPT#: [id number] DC DATE: STATUS: ADM IN [facility] [address] [place] [address] END OF REPORT
[2018-05-13 08:52] VITALS: BP 130/78
--- NOTE | 2018-05-13 10:00 | MORECARE ---
CASE MANAGEMENT DISCHARGE SUMMARY PATIENT: URI KNIGHT UNIT: [id number] ADM DATE: 05/06/18 AGE: 83 : 36 SEX: M ROOM/BED: D.2206 AUTHOR: JUAN ALFARO PHYSICIAN: REFERRING PHYSICIAN: ANGELA BERNSTEIN MD DATE OF SERVICE: 05/13/18 Discharge Plan Patient Name: URI KNIGHT Facility: [facility]:[place] : 1935 Planned Disposition: Home Health Service Anticipated Discharge Date: Discharge Date: Expected LOS: Initial Reviewer: [email or web address] Initial Review Date: 05/06/2018 Generated: 05/13/18 11:00 am Comments DCP- Discharge Planning Updated by [id number]: Annamarie Lopez on 05/13/18 8:[address] PATIENT HAS BEEN ACCEPTED TO [facility] TO A SKILLED BED THEY WILL PICK HIM UP AT 1:00 TODAY. IMM SERVED AND EXPLAINED. CM WILL CONTINUE TO FOLLOW AND ASSIST WITH DC PLANNING NEEDED DCP- Discharge Planning Updated by [id number]: Priya Barrera on 05/11/18 10:[address] DC PLAN: Referral faxed to [facility]. Received phone call from Dr. Bernstein stating that Coni at [facility] told his office nurse that the patient could go back there and that he still has days. Dr. Bernstein asked if he could dc the patient there today. ALEC spoke to Vita Nurse at [facility] who stated there was not referral sent nor did she know anything about and admission for this patient. She requested that referral be faxed and stated it would be Sunday before the referral would be reviewed. ALEC met with the patient and his to discuss discharge plan. Patient stated whatever Dr. Bernstein wanted him to do he would do. ALEC informed the patient that Dr. Bernstein has recommemded that he go to [facility] for wound care and therapy at discharge. GRUPO list of local penitentiary given to patient and advised him it was his choice to choose his provider. He stated he just left [facility] on Apr 26, 2018 and it was his wish to return there upon discharge. Patient choice form signed and left with the patient additional signed copy placed on patient's chart. Referral faxed to [facility] and Dr. Bernstein notified that it would be Sunday before the patient would be reviewed for acceptance. Priya Barrera RN, [facility] DCP- Discharge Planning Updated by [id number]: Annamarie Lopez on 05/09/18 1:[address] Patient Name: URI KNIGHT Admission Status: Urgent Accout number: [id number] Admission Date: 05-06-2018 : 1935 Admission Diagnosis: Attending: ANGELA BERNSTEIN Current LOS: 3 Anticipated DC Date: Planned Disposition: Home Health Service Primary Insurance: MEDICARE A & B Discharge Planning Comments: CM met with patient to assess discharge planning needs. Patient stated that he is independent with his care at home, but his stated that she is his help with some things. He has a walker that he uses and that is the only DME that he needs. He is current with [facility] and will continue that when he is discharged. His will be his bus driver supervisor home. IMM is signed and explained copy handed to them. CM will continue to follow and assist with DC planning needs. Flow Worker: Annamarie Lopez DCP- Discharge Planning Updated by [id number]: Annamarie Lopez on 05/09/18 11:[address] Attempted to see patient, but he was not in room. Will try again at a later time DCPIA - Discharge Planning Initial Assessment Updated by [id number]: Annamarie Lopez on 05/09/18 2:46 pm * Is the patient Alert and Oriented? Yes * PCP * Pharmacy [facility] [address] * Preadmission Environment Home with Family * ADLs Partial Dependent * Partial ADLs (Assistance needed) Bathing Dressing * Equipment Walker * List name and contact numbers for known caregivers / representatives who currently or will assist patient after discharge: [facility] () [phone] * Verbal permission to speak to the caregivers and representatives has been obtained from the patient. Yes * Community resources currently utilized Home Health * Please name any agencies selected above. [facility] * Additional services required to return to the preadmission environment? No * Can the patient safely return to the preadmission environment? Yes * Has this patient been hospitalized within the prior 30 days at any hospital? Yes Coverage Notice Reviewer: [id number] - Annamarie Lopez Notice Issued Date-Time: 05/09/2018 13:57 Notice Type: IM Discharge Notice Notice Delivered To: Patient Relationship to Patient: Pelletising Extruder Operator Name: Delivery Method: HAND - Hand Delivered Myriam Days: Prior Verbal Notification: Recipient Understood Notice: Yes Recipient Signature: Yes Med Rec Note Co-signed by Attending: Coverage Notice Comment: Last DP export: 05/13/18 7:01 am Patient Name: URI KNIGHT Page 80040 at 1000 All edits/amendments must be made on the electronic document DICTATION DATE: 05/13/18 1000 CRNP: NESSA 05/13/18 1000 RPT#: [id number] DC DATE: STATUS: ADM IN [facility] [address] [place] [address] END OF REPORT
[2018-05-13] MEDS ORDERED: VIBRAMYCIN 100100 MG PO (12:22)
[2018-05-13] MEDS ORDERED: MOBIC7.5 MG PO (12:23)
[2018-05-13] MEDS ORDERED: ANTIVERT12.5 MG PO (12:23)
[2018-05-13] MEDS ORDERED: FLORAJEN3 CAPS460 MG PO (12:23)
[2018-05-13] MEDS ORDERED: LEVEMIR IN100 UNITS/ SC (12:24)
[2018-05-13] MEDS ORDERED: FLOMAX0.4 MG PO (12:25)
[2018-05-13] MEDS ORDERED: BACTROBAN NASAL1 GM NASAL (12:32)
--- NOTE | 2018-05-13 14:30 | MORECARE ---
CASE MANAGEMENT DISCHARGE SUMMARY PATIENT: URI KNIGHT UNIT: [id number] ADM DATE: 05/06/18 AGE: 83 : 36 SEX: M ROOM/BED: D.2206 AUTHOR: JUAN ALFARO PHYSICIAN: REFERRING PHYSICIAN: ANGELA BERNSTEIN MD DATE OF SERVICE: 05/13/18 Discharge Plan Patient Name: URI KNIGHT Facility: [facility]:[place] : 1935 Planned Disposition: Home Health Service Anticipated Discharge Date: Discharge Date: 05/13/2018 Expected LOS: 0 Initial Reviewer: [email or web address] Initial Review Date: 05/06/2018 Generated: 05/13/18 3:30 pm Comments DCP- Discharge Planning Updated by [email or web address]: Annamarie Lopez on 05/13/18 8:[address] PATIENT HAS BEEN ACCEPTED TO [facility] TO A SKILLED BED THEY WILL PICK HIM UP AT 1:00 TODAY. IMM SERVED AND EXPLAINED. CM WILL CONTINUE TO FOLLOW AND ASSIST WITH DC PLANNING NEEDED DCP- Discharge Planning Updated by [email or web address]: Priya Barrera on 05/11/18 10:[address] DC PLAN: Referral faxed to [facility]. Received phone call from Dr. Bernstein stating that Coni at [facility] told his office nurse that the patient could go back there and that he still has days. Dr. Bernstein asked if he could dc the patient there today. ALEC spoke to Vita Nurse at [facility] who stated there was not referral sent nor did she know anything about and admission for this patient. She requested that referral be faxed and stated it would be Sunday before the referral would be reviewed. ALEC met with the patient and his to discuss discharge plan. Patient stated whatever Dr. Bernstein wanted him to do he would do. CM informed the patient that Dr. Bernstein has recommemded that he go to [facility] for wound care and therapy at discharge. [facility] list of local jail given to patient and advised him it was his choice to choose his provider. He stated he just left [facility] on Apr 26, 2018 and it was his wish to return there upon discharge. Patient choice form signed and left with the patient additional signed copy placed on patient's chart. Referral faxed to [facility] and Dr. Bernstein notified that it would be Sunday before the patient would be reviewed for acceptance. Priya Barrera RN, [facility] DCP- Discharge Planning Updated by [id number]: Annamarie Lopez on 05/09/18 1:[address] Patient Name: URI KNIGHT Admission Status: Urgent Accout number: [id number] Admission Date: 05-06-2018 : 1935 Admission Diagnosis: Attending: ANGELA BERNSTEIN Current LOS: 3 Anticipated DC Date: Planned Disposition: Home Health Service Primary Insurance: MEDICARE A & B Discharge Planning Comments: CM met with patient to assess discharge planning needs. Patient stated that he is independent with his care at home, but his stated that she is his help with some things. He has a walker that he uses and that is the only DME that he needs. He is current with [facility] and will continue that when he is discharged. His will be his compactor driver home. IMM is signed and explained copy handed to them. CM will continue to follow and assist with DC planning needs. Sewer Pipe Sorter: Annamarie Lopez DCP- Discharge Planning Updated by [id number]: Annamarie Lopez on 05/09/18 11:[address] Attempted to see patient, but he was not in room. Will try again at a later time DCPIA - Discharge Planning Initial Assessment Updated by [email or web address]: Annamarie Lopez on 05/09/18 2:46 pm * Is the patient Alert and Oriented? Yes * PCP Iranian * Pharmacy [facility] [address] * Preadmission Environment Home with Family * ADLs Partial Dependent * Partial ADLs (Assistance needed) Bathing Dressing * Equipment Walker * List name and contact numbers for known caregivers / representatives who currently or will assist patient after discharge: Clover () [phone] * Verbal permission to speak to the caregivers and representatives has been obtained from the patient. Yes * Community resources currently utilized Home Health * Please name any agencies selected above. [facility] * Additional services required to return to the preadmission environment? No * Can the patient safely return to the preadmission environment? Yes * Has this patient been hospitalized within the prior 30 days at any hospital? Yes Coverage Notice Reviewer: [id number] - Annamarie Lopez Notice Issued Date-Time: 05/09/2018 13:57 Notice Type: IM Discharge Notice Notice Delivered To: Patient Relationship to Patient: Microbiology Supervisor Name: Delivery Method: HAND - Hand Delivered Myriam Days: Prior Verbal Notification: Recipient Understood Notice: Yes Recipient Signature: Yes Med Rec Note Co-signed by Attending: Coverage Notice Comment: Reviewer: [id number] - Annamarie Lopez Notice Issued Date-Time: 05/13/2018 10:00 Notice Type: IM Discharge Notice Notice Delivered To: Patient Relationship to Patient: Microbiology Supervisor Name: Delivery Method: HAND - Hand Delivered Myriam Days: Prior Verbal Notification: Recipient Understood Notice: Yes Recipient Signature: Yes Med Rec Note Co-signed by Attending: Coverage Notice Comment: Last DP export: 05/13/18 9:00 am Patient Name: URI KNIGHT Page [id number] at 1430 All edits/amendments must be made on the electronic document DICTATION DATE: 05/13/18 1430 ASSISTANT PROFESSOR OF BIOLOGY: NESSA 05/13/18 1430 RPT#: [id number] DC DATE:05/13/18 STATUS: DIS IN [facility] [address] [place] [address] END OF REPORT
== END 2018-05-13 13:36 | disposition home health service (06) | DRG 572 ==
LOC: D.SDCHOLD 16:29 → D.MS 16:42 → D.SDCHOLD 05-07 09:45 → D.MS 05-07 09:54
PROVIDERS: Surgery; ADMIT Family Medicine
PROC: 0JBL0ZZ Excision of Right Upper Leg Subcutaneous Tissue and Fascia, Open Approach (ICD-10-PCS; principal; 2018-05-08 12:20)
DX: L03.115 Cellulitis of right lower limb (principal); E11.9 Type 2 diabetes mellitus without complications; I69.319 Unspecified symptoms and signs involving cognitive functions following cerebral infarction; I48.91 Unspecified atrial fibrillation; I10 Essential (primary) hypertension; I25.10 Atherosclerotic heart disease of native coronary artery without angina pectoris; I69.398 Other sequelae of cerebral infarction; E11.628 Type 2 diabetes mellitus with other skin complications; B95.62 Methicillin resistant Staphylococcus aureus infection as the cause of diseases classified elsewhere; N28.9 Disorder of kidney and ureter, unspecified; F03.90 Unspecified dementia, unspecified severity, without behavioral disturbance, psychotic disturbance, mood disturbance, and anxiety

== ENCOUNTER 2018-08-07 12:03 | Inpatient (IN) | payer MEDICARE, BC ==
[~2018-08-07] VITALS: Ht 182.9 cm; Wt 115.2 kg
[~2018-08-07 12:03] MED LIST changes: +ANTIVERT12.5 MG PO; +BACTROBAN NASAL1 GM NASAL; +FLOMAX0.4 MG PO; +VIBRAMYCIN 100100 MG PO
[2018-08-07] MEDS ORDERED: JANUVIA50 MG PO (12:28)
[2018-08-07] MEDS ORDERED: COUMADIN5 MG PO ×2 (12:29→12:31)
[2018-08-07] MEDS ORDERED: COUMADIN2.5 MG PO (12:30)
[2018-08-07] MEDS ORDERED: HUMULIN R100 U/ML SC (12:31)
[2018-08-07] MEDS ORDERED: LEVEMIR FL100 UNIT/1 SQ (12:32)
[2018-08-07 12:33] VITALS: BP 134/66
[2018-08-07 12:38] LABS: BASOPHILS 0.3 % (0-2); EOSINOPHILS 1.8 % (0-7); HEMOGLOBIN 12.8 g/dL (13.5-17.5); IMMATURE GRANULOCYTES 0.4 % (0-5); LYMPHOCYTES 15.2 % (15-50); MCHC 32.8 g/dL (31.0-37.0); MCV 88.4 fL (80.0-100.0); MEAN PLATELET VOLUME 11.2 fL (7.4-10.4); MONOCYTES 12.4 % (2-11); NEUTROPHILS 69.9 % (40-80); PLATELET COUNT 191 10x3/uL (130-400); RBC 4.41 10x6/uL (4.20-6.10); RDW 14.2 % (11.5-14.5); WBC 9.9 10x3/uL (4.8-10.8)
[2018-08-07 12:50] LABS: ALBUMIN 3.2 g/dL (3.4-5.0); ANION GAP 14.5 mmol/L (8-16); BILIRUBIN - TOTAL 0.28 mg/dL (0.2-1.3); CALCIUM 10.1 mg/dL (8.5-10.1); CARBON DIOXIDE 24.7 mmol/L (21.0-32.0); CREATININE - SERUM 2.5 mg/dL (0.6-1.3); POTASSIUM - SERUM 5.2 mmol/L (3.5-5.1); PROTEIN - SERUM 8.3 g/dL (6.4-8.2)
[2018-08-07 14:04] VITALS: BP 153/76
[2018-08-07 14:48] LABS: APPEARANCE CLEAR (CLEAR); BILIRUBIN NEGATIVE (NEGATIVE); COLOR YELLOW (YELLOW); GLUCOSE NEGATIVE (NEGATIVE); KETONE NEGATIVE (NEGATIVE); NITRITE NEGATIVE (NEGATIVE); PROTEIN NEGATIVE (NEGATIVE); UROBILINOGEN NORMAL (NORMAL)
[2018-08-07 16:00] VITALS: BP 115/61
--- NOTE | 2018-08-07 17:36 | NUR ---
FSBS= 196MG/DL
[2018-08-07 18:00] VITALS: BP 107/57
--- NOTE | 2018-08-07 18:54 | NUR ---
REPORT CALLED TO MARIEL RIVERA BY SBAR FORMAT
--- NOTE | 2018-08-07 19:27 | NUR ---
REPROT GIVEN TO FLOOR BY MARIEL OCASIO. PT TRANSPORTED TO ROOM AT 1927 IN [facility]
[2018-08-07 19:51] VITALS: BP 161/76; BMI 34.5
[2018-08-08] VITALS: BP 159/76
[2018-08-08 04:30] VITALS: BP 148/67
[2018-08-08 07:20] LABS: INR 1.54 (0.85-1.17); PROTIME 17.9 SECONDS (11.6-15.0)
[2018-08-08 07:35] LABS: CALCIUM 9.5 mg/dL (8.5-10.1); CARBON DIOXIDE 24.1 mmol/L (21.0-32.0)
[2018-08-08 07:36] LABS: ANION GAP 14.3 mmol/L (8-16); POTASSIUM - SERUM 4.4 mmol/L (3.5-5.1); TROPONIN-I 0.901 ng/mL (0.000-0.060)
--- NOTE | 2018-08-08 07:55 | NUR ---
ASSESSMENT COMPLETE. IV TO L AC PATENT. REDNESS AND SWELLING NOTED TO LEFT 2ND TOE. GENERALIZED WEAKNESS. DENIES ANY NEEDS AT THIS TIME.
--- NOTE | 2018-08-08 08:14 | HP ---
PATIENT: URI KNIGHT MEDICAL RECORD: [id number] ACCOUNT: [id number] LOCATION:[facility] D1206 : [birth year] ADMISSION DATE: 08/07/18 PCP: ANGELA NEWTON MD HISTORY AND PHYSICAL EXAMINATION REASON FOR ADMISSION: Generalized weakness, fall, and cough. HISTORY OF PRESENT ILLNESS: The patient is an elderly male with metabolic syndrome, remote aortic valve replacement, coronary artery disease. He has been admitted several times over the last year for fall, weakness, and disuse atrophy. He has been to rehab twice over that period of time. He was last discharged from rehab April of this year and did well. At that point, I was able to perform ADLs, get out of bed on his own with a walker and walk. When he went home, he progressively declined. His weakness was so severe that he actually fell about a week ago at home in the bathroom, did not injure himself per se. His said he has gotten progressively worse since that time, he has had a dry nonproductive cough. He has not had any fever. She managed to get him in the car yesterday for a haircut, but the matthews had to help him in and out of the car. His called my office today saying she just could not care for him at home any longer and his insulin doses. His family, i.e., daughter states that his is unable to give his medications correctly, and they have been trying to convince him to go to a mcc, but she has refused. PAST MEDICAL HISTORY: Type 2 diabetes mellitus, remote CVA with cognitive dysfunction, history of PAF, aortic valve replacement, essential hypertension, CAD, BPH, sick sinus syndrome with pacemaker, chronic gait disturbance, remote CVA, hospitalized in 2016 for altered mental status from UTI, carotid occlusive disease, admitted in November of 2017 for pneumonia, and history of glaucoma. PAST SURGICAL HISTORY: Aortic valve replacement, coronary artery bypass grafting, carotid endarterectomy, total knee replacement bilaterally, two angioplasty for peripheral vascular disease, cataract lens implants both eyes, and carpal tunnel repair. In April had an I and D of the thigh abscess. SOCIAL HISTORY: , lives at home with his and she is becoming less and less able to care for him. Nonsmoker and nondrinker. FAMILY HISTORY: Mother had lung disease, was a smoker and is . Mother of CAD. ALLERGIES: None known. HOME MEDICATIONS: Currently, tramadol 50 mg q.6 hours p.r.n. pain, tamsulosin 0.4 mg at bedtime, Coumadin 2.5 mg Sunday and and 5 mg other days, Lopid 600 mg p.o. b.i.d., gabapentin 300 mg p.o. b.i.d., Levemir 44 units subq q.p.m., sliding scale insulin low scale a.c. and at bedtime, Januvia 50 mg a day. REVIEW OF SYSTEMS: GENERAL: Fatigue with poor appetite and marked weakness. Denies fever. HEENT: No recent new visual change, sinus congestion, or sore throat. RESPIRATORY: He has had mild shortness of breath, recent productive cough for the last week. Denies hemoptysis. He has had minimal sputum, but has had little color to it. HISTORY AND PHYSICAL [id number] URI KNIGHT CARDIAC: No palpitations. He has positive PND. He has had no increased edema. GASTROINTESTINAL: No nausea, vomiting, change in stools or blood per rectum. GENITOURINARY: Nocturia once or twice nightly. ENDOCRINE: Denies polyuria or polydipsia. NEUROLOGIC: Remote history of stroke with gait disturbance. He has intermittent confusion. He is ill otherwise. Memory is fairly poor recent but not remote memory. MUSCULOSKELETAL: Has arthralgias in the lumbar spine and knees. Also been having pain in his left second toe for some time intermittently and has a nonhealing skin ulcer on the inferior aspect of the second left toe. PSYCHIATRIC: Admits to depressed mood and is discouraged over his living situations. He feels like he is a burden for his . PHYSICAL EXAMINATION: VITAL SIGNS: Temperature 99.3 Fahrenheit orally, pulse 102, respirations are 17, blood pressure 120/61, sat 96% on room air. HEENT: Normocephalic. Eyes are clear. NECK: No bruits or masses. CHEST: He has expiratory wheezes bilaterally without rales. HEART: Irregular rate, tachycardic with a I/ aortic valvular murmur. ABDOMEN: Obese, soft, nontender. No organomegaly or masses or bruits. GENITOURINARY: Unremarkable. EXTREMITIES: He has 2+ mild pedal and pretibial edema of the knees bilaterally. On the plantar aspect of his left second toe, there is discoloration and a very small ulcer. It is not purulent. NEUROLOGIC: He is oriented to person and place, but not time. He has no obvious motor deficits. His gait is not testable as he is too weak to stand. PSYCHIATRIC: Admits to depressed moods being discouraged but not suicidal. LABORATORY DATA: His white count of 9.9 thousand, H and H of 12.8 and 39.0 respectively, and platelet count 191,000. Differential is normal. Chemistry: Potassium is 5.2, sodium is 132, BUN and creatinine are 36 and 2.5. ProBNP is 2154. Troponin was 1.058. Urinalysis is clear. Chest x-ray showed postoperative changes, no active disease. There are calcified granuloma in lower lobe on the left. ASSESSMENT: Sokyz-iz-yxewblx renal insufficiency, hyperkalemia, hypertension, paroxysmal atrial fibrillation, generalized disuse atrophy, gait disturbance, fall risk with recent fall, CAD, aortic valve replacement, left second toe ulcer, history of peripheral vascular disease, history of carotid occlusive disease. PLAN: He has been given Lasix in the ED for potential CHF by the ER physician. Monitor his renal status. Check echocardiogram. Further workup pending clinical course. Explained to his that he most likely is going to need mcc placement or mcc rehabilitation. TRANSINT:[id number] Voice Confirmation ID: [id number] DOCUMENT ID: [id number] HISTORY AND PHYSICAL [id number] URI KNIGHT TIMOTHY MD at 0814 CC: [id number] DICTATION DATE: 08/07/181726 RN ENDOSCOPY: 08/07/18 1853 ADM IN [facility] [address] [place] [address]
[2018-08-08 09:39] VITALS: BP 111/63
--- NOTE | 2018-08-08 12:00 | NUR ---
NO CHANGES NOTED AT THIS TIME.
[2018-08-08 12:53] VITALS: BP 126/69
[2018-08-08 13:02] VITALS: Ht 182.9 cm; Wt 115.2 kg
[2018-08-08 16:57] VITALS: BP 135/69
--- NOTE | 2018-08-08 19:30 | NUR ---
PT SITTING UP IN BED, NO SIGNS OF DISTRESS. ALERT AND ORIENTED. DENIES PAIN AT THIS TIME. INCONTINENT OF BM. CHANGED LINENS. RED SCAB TO BOTTOM OF LEFT SECOND TOE, TOE PINK AND SWOLLEN. IV LEFT AC INFUSING NS @ 75. PT REQUESTED AND GIVEN WATER. DENIES OTHER NEEDS AT THIS TIME. CL IN REACH, WILL CONT TO MONITOR
[2018-08-08 20:00] VITALS: BP 154/76
[2018-08-09 04:00] VITALS: BP 148/70
[2018-08-09 07:32] LABS: BASOPHILS 0.5 % (0-2); EOSINOPHILS 3.2 % (0-7); HEMATOCRIT 36.7 % (42.0-54.0); IMMATURE GRANULOCYTES 0.3 % (0-5); LYMPHOCYTES 31.1 % (15-50); MCH 29.1 pg (26.0-34.0); MCHC 32.7 g/dL (31.0-37.0); MCV 88.9 fL (80.0-100.0); MEAN PLATELET VOLUME 10.2 fL (7.4-10.4); MONOCYTES 17.1 % (2-11); NEUTROPHILS 47.8 % (40-80); PLATELET COUNT 161 10x3/uL (130-400); RBC 4.13 10x6/uL (4.20-6.10); RDW 14.4 % (11.5-14.5)
[2018-08-09 07:41] LABS: ANION GAP 13.8 mmol/L (8-16); CALCIUM 8.9 mg/dL (8.5-10.1); CARBON DIOXIDE 24.3 mmol/L (21.0-32.0); CREATININE - SERUM 1.9 mg/dL (0.6-1.3); POTASSIUM - SERUM 4.1 mmol/L (3.5-5.1)
[2018-08-09 08:00] VITALS: BP 128/68
--- NOTE | 2018-08-09 08:10 | NUR ---
PATIENT IS ON HOSPICE CARE. FAMILY AT BEDSIDE. IV AND MEDIA STRATEGIST RUNNING. THE FAMILY HAS NO QUESTIONS AT THIS TIME.
--- NOTE | 2018-08-09 11:06 | NUR ---
THE PATIENT WAS LYING IN BED AND WATCHING TELEVISION WHEN STAFF ENTERED HIS ROOM. BED IS IN THE LOW POSITION WITH SIDERAILS X2 AND CALL LIGHT WITHIN REACH. THE PATIENT DEMONSTRATES APPROPRIATE USE OF A CALL LIGHT. THE PATIENT APPEARS COMFORTABLE AND HAS NO QUESTIONS OR CONCERNS AT THIS TIME.
[2018-08-09 12:00] VITALS: BP 100/58
--- NOTE | 2018-08-09 14:46 | MORECARE ---
CASE MANAGEMENT DISCHARGE SUMMARY PATIENT: URI KNIGHT UNIT: [id number] ADM DATE: 08/07/18 AGE: 83 : 36 SEX: M ROOM/BED: D.1206 AUTHOR: JUAN ALFARO PHYSICIAN: REFERRING PHYSICIAN: ANGELA NEWTON MD DATE OF SERVICE: 08/09/18 Discharge Plan Patient Name: URI KNIGHT [facility] [facility] 1935 Planned Disposition: Jail Facility Anticipated Discharge Date: Discharge Date: Expected LOS: Initial Reviewer: [id number] Initial Review Date: 08/09/2018 Generated: 08/09/18 3:46 pm DCPIA - Discharge Planning Initial Assessment Updated by [email or web address]: Deloris Rios on 08/09/18 2:45 pm * Is the patient Alert and Oriented? No * PCP K[facility]ER * Pharmacy [facility] * Preadmission Environment Home with Family * ADLs Partial Dependent * Equipment Walker Wheelchair * List name and contact numbers for known caregivers / representatives who currently or will assist patient after discharge: DEVAUGHN, MARÍA, DAUGHTER, [phone] * Verbal permission to speak to the caregivers and representatives has been obtained from the patient. Yes * Community resources currently utilized Home Health * Please name any agencies selected above. [facility] * Additional services required to return to the preadmission environment? Yes * Has this patient been hospitalized within the prior 30 days at any hospital? No Patient Name: URI KNIGHT Page 00630 at 1446 All edits/amendments must be made on the electronic document DICTATION DATE: 08/09/18 1445 HOUSE SHORER: NESSA 08/09/18 1445 RPT#: [id number] DC DATE: STATUS: ADM IN [facility] [address] [place] [address] END OF REPORT
--- NOTE | 2018-08-09 14:57 | MORECARE ---
CASE MANAGEMENT DISCHARGE SUMMARY PATIENT: URI KNIGHT UNIT: [id number] ADM DATE: 08/07/18 AGE: 83 : 36 SEX: M ROOM/BED: D.1206 AUTHOR: JUAN ALFARO PHYSICIAN: REFERRING PHYSICIAN: ANGELA NEWTON MD DATE OF SERVICE: 08/09/18 Discharge Plan Patient Name: URI KNIGHT Facility: [facility]:[place] : 1935 Planned Disposition: Senior Living Facility Anticipated Discharge Date: Discharge Date: Expected LOS: Initial Reviewer: [email or web address] Initial Review Date: 08/09/2018 Generated: 08/09/18 3:57 pm Comments DCP- Discharge Planning Updated by [id number]: Deloris Rios on 08/09/18 1:[address] Patient Name: URI KNIGHT Admission Status: ER Accout number: [id number] Admission Date: 08-07-2018 : 1935 Admission Diagnosis: Attending: ANGELA NEWTON Current LOS: 2 Anticipated DC Date: Planned Disposition: Senior Living Facility Primary Insurance: MEDICARE A & B Discharge Planning Comments: CM MET WITH PATIENT AND HIS DEVAUGHN ABOUT DC PLANNING/NEEDS. THE STATES HE IS HAVING FREQUENT FALLS AND UNSTEADY AND SHE IS UNABLE TO CARE FOR HIM. [facility] WANTS ME TO CALL THEIR DAUGHTER AT [phone] AFTER 4PM TODAY. POSSIBLE CLINICAL FELLOW CARE OR SNF, THE THINKS ITS WITH [facility]. [facility] SIGNED FOR ALEC ZURITA TO FOLLOW AND ASSIST NEEDED WITH DC PLANNING/NEEDS. Wholesale Representative: Deloris Rios DCPIA - Discharge Planning Initial Assessment Updated by [email or web address]: Deloris Rios on 08/09/18 2:45 pm * Is the patient Alert and Oriented? No * PCP [facility] * Pharmacy [facility] * Preadmission Environment Home with Family * ADLs Partial Dependent * Equipment Walker Wheelchair * List name and contact numbers for known caregivers / representatives who currently or will assist patient after discharge: DEVAUGHN, MARÍA, DAUGHTER, [phone] * Verbal permission to speak to the caregivers and representatives has been obtained from the patient. Yes * Community resources currently utilized Home Health * Please name any agencies selected above. [facility] * Additional services required to return to the preadmission environment? Yes * Has this patient been hospitalized within the prior 30 days at any hospital? No External Providers External Provider: [facility] Next Contact Date: Service Request Date: Service Type: Resolution: Reviewer: Comments: Coverage Notice Reviewer: [email or web address] Virginia Rios Notice Issued Date-Time: 08/09/2018 14:48 Notice Type: Patient Choice Letter Notice Delivered To: Family Member Relationship to Patient: Spouse Furnace Unloader Name: DEVAUGHN KNIGHT Delivery Method: HAND - Hand Delivered Myriam Days: Prior Verbal Notification: Recipient Understood Notice: Yes Recipient Signature: Yes Med Rec Note Co-signed by Attending: Coverage Notice Comment: [facility] FOR SNF [facility], TALK TO DAUGHTER AFTER 4PM TO SEE IF SNF OR CLINICAL FELLOW. Last DP export: 08/09/18 1:46 pm Patient Name: URI KNIGHT Page [phone] at 1360 All edits/amendments must be made on the electronic document DICTATION DATE: 08/09/186 [employer]: NESSA 08/09/18 1456 RPT#: [id number] DC DATE: STATUS: ADM IN [facility] [address] [place] [address] END OF REPORT
[2018-08-09 16:30] VITALS: BP 97/46
[2018-08-09 20:00] VITALS: BP 145/75
[2018-08-10] VITALS: BP 126/57
[2018-08-10 04:00] VITALS: BP 127/71
[2018-08-10 06:27] LABS: ANION GAP 13.4 mmol/L (8-16); CALCIUM 8.4 mg/dL (8.5-10.1); CARBON DIOXIDE 23.6 mmol/L (21.0-32.0); CREATININE - SERUM 1.9 mg/dL (0.6-1.3)
[2018-08-10 06:49] LABS: INR 1.65 (0.85-1.17); PROTIME 18.9 SECONDS (11.6-15.0)
--- NOTE | 2018-08-10 07:40 | NUR ---
ASSESSMENT COMPLETE. IV TO L AC PATENT. ETHAN MAT IN USE. INCONT OF BLADDER AT TIMES. REDNESS NOTED TO LEFT 2ND TOE. DENIES ANY NEEDS AT THIS TIME.
[2018-08-10 08:39] VITALS: BP 99/51
--- NOTE | 2018-08-10 10:55 | NUR ---
NO CHANGES NOTED AT THIS TIME.
--- NOTE | 2018-08-10 11:42 | NUR ---
SITTING UP IN RECLINER. CALL LIGHT WITHIN REACH. DENIES ANY NEEDS AT THIS TIME.
[2018-08-10 12:29] VITALS: BP 94/67
--- NOTE | 2018-08-10 15:53 | NUR ---
FIRST 2 SETS OF VITAL SIGNS WERE TAKEN WITH PATIENT SITTING ON SIDE OF BED AND IN CHAIR. LAST SET WAS TAKEN LAYING IN BED.
[2018-08-10 16:35] VITALS: BP 162/85
--- NOTE | 2018-08-10 17:32 | NUR ---
SITTING UP IN RECLINER. CALL LIGHT WITHIN REACH.
--- NOTE | 2018-08-10 18:59 | NUR ---
PT SITTING IN CHAIR AT BEDSIDE. A&O X4. DENIES NEEDS AT THIS TIME.
[2018-08-10 20:08] VITALS: BP 160/69
--- NOTE | 2018-08-10 23:17 | NUR ---
I have reviewed this patient and I concur with the Shift Assessment completed by the Licensed Practical Nurse today this shift.
[2018-08-11 00:41] VITALS: BP 150/60
[2018-08-11 05:42] VITALS: BP 154/62
[2018-08-11 06:27] LABS: ANION GAP 11.7 mmol/L (8-16); CALCIUM 8.6 mg/dL (8.5-10.1); CARBON DIOXIDE 24.3 mmol/L (21.0-32.0); CREATININE - SERUM 1.8 mg/dL (0.6-1.3)
[2018-08-11 06:41] LABS: INR 1.87 (0.85-1.17); PROTIME 20.9 SECONDS (11.6-15.0)
--- NOTE | 2018-08-11 09:44 | NUR ---
PATIENT ALERT AND ORIENTED THIS MORNING. NO COMPLAINTS OF PAIN OR DISCOMFORT AT THIS TIME. ATE 60% OF BREAKFAST. ASSISTED UP TO BEDSIDE COMMODE. PATIENT WEAK AND NEEDED MOD-MAX ASSIST. C/O PAIN TO HAND AND MEDICATED WITH PRN ULTRAM WITH GOOD RESULTS. PATIENT RESTING QUIETLY AT THIS TIME. WILL CONTINUE TO MONITOR. CALL LIGHT WITHIN REACH.
[2018-08-11 10:37] VITALS: BP 140/81
[2018-08-11 16:26] VITALS: BP 151/75
[2018-08-11 21:31] VITALS: BP 113/65
--- NOTE | 2018-08-11 21:56 | NUR ---
PT HAS WET LINEN AND GOWN CHANGED GOWN AND LINEN. CALL LIGHT IN REACH.
[2018-08-12 00:19] VITALS: BP 139/73
--- NOTE | 2018-08-12 01:08 | NUR ---
REST QUIETLY IN BED, CALL LIGHT IN REACH.
[2018-08-12 04:30] VITALS: BP 128/87
[2018-08-12 06:59] LABS: ANION GAP 13.2 mmol/L (8-16); CALCIUM 8.6 mg/dL (8.5-10.1); CARBON DIOXIDE 25.7 mmol/L (21.0-32.0); CREATININE - SERUM 1.7 mg/dL (0.6-1.3); POTASSIUM - SERUM 3.9 mmol/L (3.5-5.1)
[2018-08-12 07:30] VITALS: BP 103/60
--- NOTE | 2018-08-12 08:15 | NUR ---
PT HAD INCONTINENT EPISODE IN BED. PT ASSISTED INTO RECLINER CHAIR AND COMPLETE BED CHANGE DONE.
--- NOTE | 2018-08-12 08:30 | NUR ---
CT STARTED A RIGHT HAND 20G IV.
[2018-08-12 13:02] VITALS: BP 114/68
--- NOTE | 2018-08-12 13:02 | EC ---
PATIENT:URI KNIGHT DATE OF SERVICE: 08/07/18 SEX: M MEDICAL RECORD: [id number] DATE OF : [birth year] LOCATION:D.M3 D.120 AGE OF PATIENT: 83 ADMISSION DATE: 08/07/18 REFERRING PHYSICIAN: INTERPRETING PHYSICIAN: HALIMA TANNER MD ECHOCARDIOGRAM REPORT ECHO CHARGES 5 ECHO LIMITED Date: 08/08/18 CLINICAL DIAGNOSIS: CHF/PRAX AFIB HX OF CAD/CABG ECHOCARDIOGRAPHIC MEASUREMENTS (adult normal given) AC root (d.<3.7cm) 2.7 cm LV Septum d (<1.2 cm> 1.8 cm Valve Excursion 1.4 cm LV Septum (systole) 2.0 cm Left Atria (s.<4.0cm> 4.3 cm LVPW d(<1.2cm) 2.2 cm RV (d.<2.3cm) 3.5 cm LVPW (sytole) 2.3 cm LV diastole(<5.6CM) 4.2 cm MV E-F(>70mm/sec) cm LV systole 3.7 cm LVOT Diameter cm MV exc.(>10mm) cm Est.ejection fraction (50-75%) % DOPPLER: LVIT cm/sec A cm/sec E cm/sec LA cm/sec RVSP 23 mmHg LVOT cm/sec AOP1/2T m/s Asc. Ao cm/sec RVOT cm/sec RA cm/sec PA cm/sec AV Gradient Peak mmHg AV Mean mmHg AV Area cm MV Gradient Peak mmHg MV Mean mmHg MV Area cm COMMENTS: Relief Pharmacist: 2 KRYSTAL MARTELL Check Grader: 3 Dr. Ladd TAPE# PACS Pericardial Effusion N DATE OF SERVICE: Adequate 2D, color flow, spectral Doppler, and M-Mode. LVH is present. LV internal dimension is normal. Wall motion normal. EF of is greater than or equal to 55%. Aortic valve sclerosis without evidence of stenosis on Doppler interrogation. Left atrium dilated at 4.3 cm. Mitral valve shows no prolapse. Trace MR. Right-sided chambers grossly normal. Trace TR. TRANSINT:[id number] Voice Confirmation ID: [id number] DOCUMENT ID: [id number] ECHOCARDIOGRAM REPORT [id number] URI KNIGHT HALIMA TANNER MD at 1302 CC: [id number] DICTATION DATE: 08/09/18 0835 ELECTRONICS HARDWARE DESIGN ENGINEER: 08/09/18 [address] [facility] [address] [place] [id number]
--- NOTE | 2018-08-12 14:22 | NUR ---
Nutrition Follow Up: Renal ADA diet ordered with ~50% intake of meals past 5 meals Last weight 254lb-requests weight for tomorrow morning Offered diabetic teaching and pt has no questions about diabetic diet at this time Pt reports he is not eating well because he does not like the diet and he receives the same foods. Considuering current po intake, food preferences, age and after revieweding lab values, will liberalize diet to Diabetic 2gm Na RD following
--- NOTE | 2018-08-12 14:28 | NUR ---
ALERT AND ORIENTED X4. FAMILY AT BEDSIDE. NO SIGNS OF DISTRESS. AGREE WITH MS ACCESS DATABASE DEVELOPER ASSESSMENT. DENIES ANY NEEDS. ARTUR HARTLEY RESUMES PLAN OF CARE.
[2018-08-12 16:56] VITALS: BP 108/62
--- NOTE | 2018-08-12 20:15 | NUR ---
REST IN BED, CALL LIGHT IN REACH.
[2018-08-12 20:20] VITALS: BP 145/81
[2018-08-13 01:36] VITALS: BP 122/60
--- NOTE | 2018-08-13 03:44 | NUR ---
REST QUIETLY IN BED, CALL LIGHT IN REACH.
[2018-08-13 05:53] VITALS: BP 128/68
[2018-08-13 06:28] LABS: ANION GAP 13.4 mmol/L (8-16); CALCIUM 8.6 mg/dL (8.5-10.1); CARBON DIOXIDE 24.5 mmol/L (21.0-32.0); CREATININE - SERUM 1.8 mg/dL (0.6-1.3); POTASSIUM - SERUM 3.9 mmol/L (3.5-5.1)
[2018-08-13 06:36] LABS: INR 2.56 (0.85-1.17); PROTIME 26.8 SECONDS (11.6-15.0)
[2018-08-13 06:56] VITALS: BP 104/67
--- NOTE | 2018-08-13 08:00 | NUR ---
PT SITTING ON SIDE OF BED EATING BREAKFAST, SHIFT ASSESSMENT PERFORMED. DENIES ANY NEEDS AT THIS TIME, WILL CONT TO FOLLOW POC
--- NOTE | 2018-08-13 08:30 | NUR ---
PT STATES HE NEEDS TO GO TO THE BATHROOM. IN REPORT NURSE WAS TOLD THAT PT WAS VERY HARD TO GET FROM CHAIR INTO BED. ADVISED PT THAT NURSE NEEDED TO CONSULT WITH PHYSICAL THERAPY BEFORE HE GOT OOB TO THE BEDSIDE COMMODE. ADVISED PT THAT HE COULD TRY TO GET ON A BEDPAN UNTIL PHYSICAL THERAPY COULD ARRIVE TO FLOOR BUT PT REFUSED. PAGED PHYSICAL THERAPY.
--- NOTE | 2018-08-13 08:45 | NUR ---
PHYSICAL THERAPY ARRIVED AND TRANSFERRED PT X1 ASSIST WITH WALKER TO BEDSIDE COMMODE. APPROVAL GIVEN FROM PHYSCIAL THERAPY FOR NURSING TO TRANSFER PT WITH WALKER
--- NOTE | 2018-08-13 11:39 | MORECARE ---
CASE MANAGEMENT DISCHARGE SUMMARY PATIENT: URI KNIGHT UNIT: [id number] ADM DATE: 08/07/18 AGE: 83 : 36 SEX: M ROOM/BED: D.1206 AUTHOR: JUAN ALFARO PHYSICIAN: REFERRING PHYSICIAN: ANGELA NEWTON MD DATE OF SERVICE: 08/13/18 Discharge Plan Patient Name: URI KNIGHT Facility: [facility]:[place] : 1935 Planned Disposition: Halfway Facility Anticipated Discharge Date: Discharge Date: Expected LOS: Initial Reviewer: [id number] Initial Review Date: 08/09/2018 Generated: 08/13/18 12:39 pm Comments DCP- Discharge Planning Updated by [id number]: Deloris Rios on 08/09/18 1:[address] Patient Name: URI KNIGHT Admission Status: ER Accout number: [id number] Admission Date: 08-07-2018 : 1935 Admission Diagnosis: Attending: ANGELA NEWTON Current LOS: 2 Anticipated DC Date: Planned Disposition: Halfway Facility Primary Insurance: MEDICARE A & B Discharge Planning Comments: CM MET WITH PATIENT AND HIS DEVAUGHN ABOUT DC PLANNING/NEEDS. THE STATES HE IS HAVING FREQUENT FALLS AND UNSTEADY AND SHE IS UNABLE TO CARE FOR HIM. [facility] WANTS ME TO CALL THEIR DAUGHTER AT [phone] AFTER 4PM TODAY. POSSIBLE [facility] C[facility] OR SNF, THE THINKS ITS WITH [facility]. [facility] SIGNED FOR [facility] TO FOLLOW AND ASSIST NEEDED WITH DC PLANNING/NEEDS. Senior Biostatistician/Group Leader: Deloris Rios DCPIA - Discharge Planning Initial Assessment Updated by [id number]: Deloris Rios on 08/09/18 2:45 pm * Is the patient Alert and Oriented? No * PCP HUNGARIAN * [facility] * Preadmission Environment Home with Family * ADLs Partial Dependent * Equipment Walker Wheelchair * List name and contact numbers for known caregivers / representatives who currently or will assist patient after discharge: DEVAUGHN, MARÍA, DAUGHTER, [phone] * Verbal permission to speak to the caregivers and representatives has been obtained from the patient. Yes * Community resources currently utilized Home Health * Please name any agencies selected above. [facility] * Additional services required to return to the preadmission environment? Yes * Has this patient been hospitalized within the prior 30 days at any hospital? No Coverage Notice Reviewer: [id number] [place] Rios Notice Issued Date-Time: 08/09/2018 14:48 Notice Type: Patient Choice Letter Notice Delivered To: Family Member Relationship to Patient: Spouse Logging Crew Supervisor Name: DEVAUGHN KNIGHT Delivery Method: HAND - Hand Delivered Myriam Days: Prior Verbal Notification: Recipient Understood Notice: Yes Recipient Signature: Yes Med Rec Note Co-signed by Attending: Coverage Notice Comment: [facility] TALK TO DAUGHTER AFTER 4PM TO SEE IF SNF OR SNF. Last DP export: 08/09/18 1:57 pm Patient Name: URI KNIGHT Page [phone] at 1139 All edits/amendments must be made on the electronic document DICTATION DATE: 08/13/18 1138 WIRE BRUSHER: NESSA 08/13/18 1138 RPT#: [id number] DC DATE: STATUS: ADM IN [facility] [address] [place] [address] END OF REPORT
[2018-08-13 12:42] VITALS: BP 152/84
--- NOTE | 2018-08-13 12:58 | NUR ---
Left #2 toe has a dry cracked area on the plantar aspect. Recommended an antibiotic ointment.
--- NOTE | 2018-08-13 15:07 | MORECARE ---
CASE MANAGEMENT DISCHARGE SUMMARY PATIENT: URI KNIGHT UNIT: [id number] ADM DATE: 08/07/18 AGE: 83 : 36 SEX: M ROOM/BED: D.1206 AUTHOR: JUAN ALFARO PHYSICIAN: REFERRING PHYSICIAN: ANGELA NEWTON MD DATE OF SERVICE: 08/13/18 Discharge Plan Patient Name: URI KNIGHT Facility: [facility]:[place] : 1935 Planned Disposition: [facility] Facility Anticipated Discharge Date: Discharge Date: Expected LOS: Initial Reviewer: [id number] Initial Review Date: 08/09/2018 Generated: 08/13/18 4:07 pm Comments DCP- Discharge Planning Updated by [id number]: Deloris Rios on 08/13/18 2:[address] Patient Name: URI KNIGHT Admission Status: ER Accout number: [id number] Admission Date: 08-07-2018 : 1935 Admission Diagnosis:WEAKNESS Attending: ANGELA NEWTON Current LOS: 6 Anticipated DC Date: Planned Disposition: [facility] Primary Insurance: MEDICARE A & B Discharge Planning Comments: CM WAITING FOR CALL BACK FROM [facility] ABOUT SNF CARE. CM NOTIFIED TAIWO AT [facility] THAT PATIENT MAY DC TOMORROW. CM WILL FOLLOW AND ASSIST NEEDED WITH DC PLANNING NEEDS. Machine Rough Rounder: Deloris Rios DCP- Discharge Planning Updated by [id number]: Deloris Rios on 08/09/18 1:[address] Patient Name: URI KNIGHT Admission Status: ER Accout number: [id number] Admission Date: 08-07-2018 : 1935 Admission Diagnosis: Attending: ANGELA NEWTON Current LOS: 2 Anticipated DC Date: Planned Disposition: [facility] Primary Insurance: MEDICARE A & B Discharge Planning Comments: CM MET WITH PATIENT AND HIS DEVAUGHN ABOUT DC PLANNING/NEEDS. THE STATES HE IS HAVING FREQUENT FALLS AND UNSTEADY AND SHE IS UNABLE TO CARE FOR HIM. [facility] WANTS ME TO CALL THEIR DAUGHTER AT [phone] AFTER 4PM TODAY. POSSIBLE [facility] CARE OR SNF, THE THINKS ITS WITH [facility]. [facility] SIGNED FOR [facility] TO FOLLOW AND ASSIST NEEDED WITH DC PLANNING/NEEDS. Machine Rough Rounder: Deloris Blanca DCPIA - Discharge Planning Initial Assessment Updated by [email or web address]: Deloris Rios on 08/09/18 2:45 pm * Is the patient Alert and Oriented? No * PCP IRISH * Pharm[facility] * Preadmission Environment Home with Family * ADLs Partial Dependent * Equipment Walker Wheelchair * List name and contact numbers for known caregivers / representatives who currently or will assist patient after discharge: DEVAUGHN, MARÍA, DAUGHTER, [phone] * Verbal permission to speak to the caregivers and representatives has been obtained from the patient. Yes * Community resources currently utilized Home Health * Please name any agencies selected above. [facility] * Additional services required to return to the preadmission environment? Yes * Has this patient been hospitalized within the prior 30 days at any hospital? No Coverage Notice Reviewer: [id number] [place] Rios Notice Issued Date-Time: 08/09/2018 14:48 Notice Type: Patient Choice Letter Notice Delivered To: Family Member Relationship to Patient: Spouse Machine Tool Mechanic Name: DEVAUGHN KNIGHT Delivery Method: HAND - Hand Delivered Myriam Days: Prior Verbal Notification: Recipient Understood Notice: Yes Recipient Signature: Yes Med Rec Note Co-signed by Attending: Coverage Notice Comment: [facility], TALK TO DAUGHTER AFTER 4PM TO SEE IF SNF OR HR COORDINATOR. Reviewer: [id number] [place] Rios Notice Issued Date-Time: 08/13/2018 12:43 Notice Type: IM Discharge Notice Notice Delivered To: Family Member Relationship to Patient: Spouse Machine Tool Mechanic Name: DEVAUGHN KNIGHT Delivery Method: HAND - Hand Delivered Myriam Days: Prior Verbal Notification: Recipient Understood Notice: Yes Recipient Signature: Yes Med Rec Note Co-signed by Attending: Coverage Notice Comment: Last DP export: 08/13/18 10:39 am Patient Name: URI KNIGHT Page [phone] at 1507 All edits/amendments must be made on the electronic document DICTATION DATE: 08/13/181506 SHEEP OR CALF GRADER: NESSA 08/13/18 150 RPT#: [id number] DC DATE: STATUS: ADM IN [facility] [address] [place] [address] END OF REPORT
--- NOTE | 2018-08-13 15:26 | NUR ---
PT STATES THE ALBA CATHETER WAS INSERTED DUE TO BEING PLACED ON LASIX. ALBA CATHETER REMOVED VIA NURSE DRIVEN PROTOCOL
[2018-08-13 17:45] VITALS: BP 160/73
--- NOTE | 2018-08-13 19:45 | NUR ---
PT SITTING UP IN BED. CALL LIGHT IN REACH. DENIES NEEDS OR PAIN AT THIS TIME. BED IN LOW SIDE RAILS X2. RESP EVEN AND UNLABORED. A/O X4 WITH SOME CONFUSION AT TIMES. WCTM
[2018-08-13 20:00] VITALS: BP 131/867
[2018-08-14 04:00] VITALS: BP 91/53
--- NOTE | 2018-08-14 05:15 | NUR ---
PT PRESSED CALL LIGHT DUE TO BEING WET AND BED NEEDING TO BE CHANGED. HELPED ASSIST PT TO CHAIR TO CHANGE BED. LINENS CHANGED. PT BACK IN BED. BP 91/53 WILL RECHECK IN 30 MIN. PT DENIES FEELING ANY DIFFERENT THEN NORMAL. WCTM
[2018-08-14 05:37] LABS: INR 2.42 (0.85-1.17); PROTIME 25.6 SECONDS (11.6-15.0)
[2018-08-14 05:50] LABS: ANION GAP 13.8 mmol/L (8-16); CARBON DIOXIDE 24.1 mmol/L (21.0-32.0); CREATININE - SERUM 1.8 mg/dL (0.6-1.3); POTASSIUM - SERUM 3.9 mmol/L (3.5-5.1)
--- NOTE | 2018-08-14 06:00 | NUR ---
PT BP 105/67.
[2018-08-14 06:40] LABS: BASOPHILS 0.4 % (0-2); HEMOGLOBIN 12.2 g/dL (13.5-17.5); IMMATURE GRANULOCYTES 0.4 % (0-5); LYMPHOCYTES 19.5 % (15-50); MCH 28.9 pg (26.0-34.0); MCV 87.7 fL (80.0-100.0); MONOCYTES 11.3 % (2-11); NEUTROPHILS 66.4 % (40-80); RBC 4.22 10x6/uL (4.20-6.10); RDW 14.1 % (11.5-14.5); WBC 9.3 10x3/uL (4.8-10.8)
[2018-08-14 07:09] LABS: PLATELET COUNT 235 10x3/uL (130-400)
--- NOTE | 2018-08-14 07:50 | NUR ---
ASSESSMENT COMPLETE. SL TO R FA AND L AC. REDNESS NOTED TO LEFT 2ND TOE. INCONT OF B/B AT TIMES. UP WITH ASSIST WITH WALKER. DENIES ANY NEEDS AT THIS TIME.
[2018-08-14 08:00] VITALS: BP 136/82
--- NOTE | 2018-08-14 11:01 | NUR ---
MESSAGE LEFT WITH TIFFANY AT DR NEWTON'S OFFICE THAT [facility] CAN ACCEPT PATIENT TODAY.
--- NOTE | 2018-08-14 11:06 | MORECARE ---
CASE MANAGEMENT DISCHARGE SUMMARY PATIENT: URI KNIGHT UNIT: [id number] ADM DATE: 08/07/18 AGE: 83 : 36 SEX: M ROOM/BED: D.1206 AUTHOR: JUAN ALFARO PHYSICIAN: REFERRING PHYSICIAN: ANGELA NEWTON MD DATE OF SERVICE: 08/14/18 Discharge Plan Patient Name: URI KNIGHT Facility: [facility]:[place] : 1935 Planned Disposition: [facility] Facility Anticipated Discharge Date: 08/14/18 Discharge Date: Expected LOS: 7 Initial Reviewer: [id number] Initial Review Date: 08/09/2018 Generated: 08/14/18 12:05 pm Comments DCP- Discharge Planning Updated by [id number]: Deloris Rios on 08/14/18 10:[address] Patient Name: URI KNIGHT Admission Status: ER Accout number: [id number] Admission Date: 08-07-2018 : 1935 Admission Diagnosis:WEAKNESS Attending: ANGELA NEWTON Current LOS: 7 Anticipated DC Date: 08-14-2018 Planned Disposition: [facility] Facility Primary Insurance: MEDICARE A & B Discharge Planning Comments: CM SPOKE WITH ELVIS AT [facility] TODAY AND SHE STATES THEY WILL ACCEPT. CALL HER AT [phone] TO SET UP TIME FOR CAYETANO. MARIEL GRIFFITH NOTIFIED AND SHE IS CONTACTING MD. MICHAEL TO FOLLOW AND ASSIST. Core Filer: Deloris Rios DCP- Discharge Planning Updated by [email or web address]: Deloris Rios on 08/13/18 2:[address] Patient Name: URI KNIGHT Admission Status: ER Accout number: [id number] Admission Date: 08-07-2018 : 1935 Admission Diagnosis:WEAKNESS Attending: ANGELA NEWTON Current LOS: 6 Anticipated DC Date: Planned Disposition: [facility] Facility Primary Insurance: MEDICARE A & B Discharge Planning Comments: CM WAITING FOR [facility] ABOUT [facility]F C[facility]. CM NOTIFIED TAIWO AT [facility] THAT PATIENT MAY DC TOMORROW. CM WILL FOLLOW AND ASSIST NEEDED WITH DC PLANNING NEEDS. Core Filer: Deloris Rios DCP- Discharge Planning Updated by [email or web address]: Deloris Rios on 08/09/18 1:[address] Patient Name: URI KNIGHT Admission Status: ER Accout number: [id number] Admission Date: 08-07-2018 : 1935 Admission Diagnosis: Attending: ANGELA NEWTON Current LOS: 2 Anticipated DC Date: Planned Disposition: Correction Facility Primary Insurance: MEDICARE A & B Discharge Planning Comments: CM MET WITH PATIENT AND HIS DEVAUGHN ABOUT DC PLANNING/NEEDS. THE STATES HE IS HAVING FREQUENT FALLS AND UNSTEADY AND SHE IS UNABLE TO CARE FOR HIM. STATES WANTS ME TO CALL THEIR DAUGHTER AT [phone] AFTER 4PM TODAY. POSSIBLE [facility] TECHNIC[facility] C[facility] OR SNF, THE THINKS ITS WITH [facility]. [facility] SIGNED FOR [facility] TO FOLLOW AND ASSIST NEEDED WITH DC PLANNING/NEEDS. Core Filer: Deloris Rios DCPIA - Discharge Planning Initial Assessment Updated by [id number]: Deloris Rios on 08/09/18 2:45 pm * Is the patient Alert and Oriented? No * PCP CHINESE * Pharmacy [facility] * Preadmission Environment Home with Family * ADLs Partial Dependent * Equipment Walker Wheelchair * List name and contact numbers for known caregivers / representatives who currently or will assist patient after discharge: DEVAUGHN, MARÍA, DAUGHTER, [phone] * Verbal permission to speak to the caregivers and representatives has been obtained from the patient. Yes * Community resources currently utilized Home Health * Please name any agencies selected above. [facility] * Additional services required to return to the preadmission environment? Yes * Has this patient been hospitalized within the prior 30 days at any hospital? No Coverage Notice Reviewer: [id number] [place] Rios Notice Issued Date-Time: 08/09/2018 14:48 Notice Type: Patient Choice Letter Notice Delivered To: Family Member Relationship to Patient: Spouse Strip Winder Name: DEVAUGHN KNIGHT Delivery Method: HAND - Hand Delivered Myriam Days: Prior Verbal Notification: Recipient Understood Notice: Yes Recipient Signature: Yes Med Rec Note Co-signed by Attending: Coverage Notice Comment: [facility] FOR SNF [facility] TO DAUGHTER AFTER 4PM TO SEE IF SNF OR LONGTERM. Reviewer: [id number] [place] Rios Notice Issued Date-Time: 08/13/2018 12:43 Notice Type: IM Discharge Notice Notice Delivered To: Family Member Relationship to Patient: Spouse Strip Winder Name: DEVAUGHN KNIGHT Delivery Method: HAND - Hand Delivered Myriam Days: Prior Verbal Notification: Recipient Understood Notice: Yes Recipient Signature: Yes Med Rec Note Co-signed by Attending: Coverage Notice Comment: Last DP export: 08/13/18 2:07 pm Patient Name: URI KNIGHT Page 98890 at 1106 All edits/amendments must be made on the electronic document DICTATION DATE: 08/14/181104 SPINE SPECIALIST: NESSA 08/14/181104 RPT#: [id number] DC DATE: STATUS: ADM IN [facility] [address] [place] [address] END OF REPORT
[2018-08-14 11:52] VITALS: BP 103/55
[2018-08-14] MEDS ORDERED: COUMADIN5 MG PO (13:05)
[2018-08-14] MEDS ORDERED: CEFTIN PO (13:06)
[2018-08-14] MEDS ORDERED: FLOMAX0.4 MG PO (13:06)
--- NOTE | 2018-08-14 14:11 | MORECARE ---
CASE MANAGEMENT DISCHARGE SUMMARY PATIENT: URI KNIGHT UNIT: [id number] ADM DATE: 08/07/18 AGE: 83 : 36 SEX: M ROOM/BED: D.1206 AUTHOR: JUAN ALFARO PHYSICIAN: REFERRING PHYSICIAN: ANGELA NEWTON MD DATE OF SERVICE: 08/14/18 Discharge Plan Patient Name: URI KNIGHT Facility: [facility]:[place] : 1935 Planned Disposition: Snf Facility Anticipated Discharge Date: 08/14/18 Discharge Date: Expected LOS: 7 Initial Reviewer: [id number] Initial Review Date: 08/09/2018 Generated: 08/14/18 3:11 pm Comments DCP- Discharge Planning Updated by [id number]: Deloris Rios on 08/14/18 1:[address] Patient Name: URI KNIGHT Admission Status: ER Accout number: [id number] Admission Date: 08-07-2018 : 1935 Admission Diagnosis:WEAKNESS Attending: ANGELA NEWTON Current LOS: 7 Anticipated DC Date: 08-14-2018 Planned Disposition: Snf Facility Primary Insurance: MEDICARE A & B Discharge Planning Comments: CM SPOKE WITH ELVIS AT [facility] TODAY AND SHE STATES THEY WILL ACCEPT. CALL HER AT [phone] TO SET UP TIME FOR CAYETANO. GLADIS RN NOTIFIED AND SHE IS CONTACTING MD. MICHAEL TO FOLLOW AND ASSIST. Scientific Informatics Analyst: Deloris Rios Appended by Deloris Rios on 08/14/2018 14:05 CDT: VAN TO TALENT SOURCER PATIENT AROUND 3PM. [facility] NOTIFIED. DCP- Discharge Planning Updated by [id number]: Deloris Rios on 08/13/18 2:[address] Patient Name: URI KNIGHT Admission Status: ER Accout number: [id number] Admission Date: 08-07-2018 : 1935 Admission Diagnosis:WEAKNESS Attending: ANGELA NEWTON Current LOS: 6 Anticipated DC Date: Planned Disposition: Snf Facility Primary Insurance: MEDICARE A & B Discharge Planning Comments: CM WAITING FOR CALL BACK FROM [facility] ABOUT SNF CARE. [facility] TOMOR[facility]. CM WILL FOLLOW AND ASSIST NEEDED WITH DC PLANNING NEEDS. Scientific Informatics Analyst: Deloris Rios DCP- Discharge Planning Updated by [id number]: Deloris Rios on 08/09/18 1:[address] Patient Name: URI KNIGHT Admission Status: ER Accout number: [id number] Admission Date: 08-07-2018 : 1935 Admission Diagnosis: Attending: ANGELA NEWTON Current LOS: 2 Anticipated DC Date: Planned Disposition: Snf Facility Primary Insurance: MEDICARE A & B Discharge Planning Comments: CM MET WITH PATIENT AND HIS DEVAUGHN ABOUT DC PLANNING/NEEDS. THE STATES HE IS HAVING FREQUENT FALLS AND UNSTEADY AND SHE IS UNABLE TO CARE FOR HIM. STATES WANTS ME TO CALL THEIR DAUGHTER AT [phone] AFTER 4PM TODAY. [facility] OR SNF, THE THINKS ITS WITH [facility]. [facility] SIGNED FOR [facility] TO FOLLOW AND ASSIST NEEDED WITH DC PLANNING/NEEDS. Scientific Informatics Analyst: Deloris Rios DCPIA - Discharge Planning Initial Assessment Updated by [email or web address]: Deloris Rios on 08/09/18 2:45 pm * Is the patient Alert and Oriented? No * PCP * [facility] * Preadmission Environment Home with Family * ADLs Partial Dependent * Equipment Walker Wheelchair * List name and contact numbers for known caregivers / representatives who currently or will assist patient after discharge: DEVAUGHN, MARÍA, DAUGHTER, [phone] * Verbal permission to speak to the caregivers and representatives has been obtained from the patient. Yes * Community resources currently utilized Home Health * Please name any agencies selected above. [facility] * Additional services required to return to the preadmission environment? Yes * Has this patient been hospitalized within the prior 30 days at any hospital? No Coverage Notice Reviewer: [id number] [place] Rios Notice Issued Date-Time: 08/09/2018 14:48 Notice Type: Patient Choice Letter Notice Delivered To: Family Member Relationship to Patient: Spouse Broadcast Technician Name: DEVAUGHN KNIGHT Delivery Method: HAND - Hand Delivered Myriam Days: Prior Verbal Notification: Recipient Understood Notice: Yes Recipient Signature: Yes Med Rec Note Co-signed by Attending: Coverage Notice Comment: [facility] FOR SNF [facility], TALK TO DAUGHTER AFTER 4PM TO SEE IF SNF OR AMERICAN INDIAN STUDIES PROFESSOR. Reviewer: [id number] [place] Rios Notice Issued Date-Time: 08/13/2018 12:43 Notice Type: IM Discharge Notice Notice Delivered To: Family Member Relationship to Patient: Spouse Broadcast Technician Name: DEVAUGHN KNIGHT Delivery Method: HAND - Hand Delivered Myriam Days: Prior Verbal Notification: Recipient Understood Notice: Yes Recipient Signature: Yes Med Rec Note Co-signed by Attending: Coverage Notice Comment: Last DP export: 08/14/18 10:05 am Patient Name: URI KNIGHT Page 55507 at 1411 All edits/amendments must be made on the electronic document DICTATION DATE: 08/14/18 141 TUBE PUSHER: NESSA 08/14/18 1411 RPT#: [id number] DC DATE: STATUS: ADM IN [facility] [address] [place] [address] END OF REPORT
--- NOTE | 2018-08-14 15:14 | MORECARE ---
CASE MANAGEMENT DISCHARGE SUMMARY PATIENT: URI KNIGHT UNIT: [id number] ADM DATE: 08/07/18 AGE: 83 : 36 SEX: M ROOM/BED: D.1206 AUTHOR: JUAN ALFARO PHYSICIAN: REFERRING PHYSICIAN: ANGELA NEWTON MD DATE OF SERVICE: 08/14/18 Discharge Plan Patient Name: URI KNIGHT Facility: [facility]:[place] : 1935 Planned Disposition: Prison Facility Anticipated Discharge Date: 08/14/18 Discharge Date: Expected LOS: 7 Initial Reviewer: [id number] Initial Review Date: 08/09/2018 Generated: 08/14/18 4:14 pm Comments DCP- Discharge Planning Updated by [email or web address]: Deloris Rios on 08/14/18 1:[address] Patient Name: URI KNIGHT Admission Status: ER Accout number: [id number] Admission Date: 08-07-2018 : 1935 Admission Diagnosis:WEAKNESS Attending: ANGELA NEWTON Current LOS: 7 Anticipated DC Date: 08-14-2018 Planned Disposition: Prison Facility Primary Insurance: MEDICARE A & B Discharge Planning Comments: CM SPOKE WITH ELVIS AT [facility] TODAY AND SHE STATES THEY WILL ACCEPT. CALL HER AT [phone] TO SET UP TIME FOR CAYETANO. GLADIS RN NOTIFIED AND SHE IS CONTACTING MD. MICHAEL TO FOLLOW AND ASSIST. Inspector Type: Deloris Rios Appended by Deloris Rios on 08/14/2018 14:05 CDT: VAN TO SET UP MECHANIC COIL WINDING MACHINES PATIENT AROUND 3PM. SUKH NOTIFIED. DCP- Discharge Planning Updated by [id number]: Deloris Rios on 08/13/18 2:[address] Patient Name: URI KNIGHT Admission Status: ER Accout number: [id number] Admission Date: 08-07-2018 : 1935 Admission Diagnosis:WEAKNESS Attending: ANGELA NEWTON Current LOS: 6 Anticipated DC Date: Planned Disposition: Prison Facility Primary Insurance: MEDICARE A & B Discharge Planning Comments: CM WAITING FOR CALL BACK FROM [facility] ABOUT SNF CARE. CM NOTIFIED TAIWO AT [facility] THAT PATIENT MAY DC TOMORROW. CM WILL FOLLOW AND ASSIST NEEDED WITH DC PLANNING NEEDS. Inspector Type: Deloris Rios DCP- Discharge Planning Updated by [id number]: Deloris Rios on 08/09/18 1:[address] Patient Name: URI KNIGHT Admission Status: ER Accout number: [id number] Admission Date: 08-07-2018 : 1935 Admission Diagnosis: Attending: ANGELA NEWTON Current LOS: 2 Anticipated DC Date: Planned Disposition: Prison Facility Primary Insurance: MEDICARE A & B Discharge Planning Comments: CM MET WITH PATIENT AND HIS DEVAUGHN ABOUT DC PLANNING/NEEDS. THE STATES HE IS HAVING FREQUENT FALLS AND UNSTEADY AND SHE IS UNABLE TO CARE FOR HIM. STATES WANTS ME TO CALL THEIR DAUGHTER AT [phone] AFTER 4PM TODAY. [facility] OR SNF, THE THINKS ITS WITH [facility]. [facility] SIGNED FOR [facility] TO FOLLOW AND ASSIST NEEDED WITH DC PLANNING/NEEDS. Inspector Type: Deloris Rios DCPIA - Discharge Planning Initial Assessment Updated by [email or web address]: Deloris Rios on 08/09/18 2:45 pm * Is the patient Alert and Oriented? No * PCP * [facility]acy [facility] * Preadmission Environment Home with Family * ADLs Partial Dependent * Equipment Walker Wheelchair * List name and contact numbers for known caregivers / representatives who currently or will assist patient after discharge: DEVAUGHN, MARÍA, DAUGHTER, [phone] * Verbal permission to speak to the caregivers and representatives has been obtained from the patient. Yes * Community resources currently utilized Home Health * Please name any agencies selected above. [facility] * Additional services required to return to the preadmission environment? Yes * Has this patient been hospitalized within the prior 30 days at any hospital? No Coverage Notice Reviewer: [id number] [place] Rios Notice Issued Date-Time: 08/09/2018 14:48 Notice Type: Patient Choice Letter Notice Delivered To: Family Member Relationship to Patient: Spouse Ticket Taker Ferryboat Name: DEVAUGHN KNIGHT Delivery Method: HAND - Hand Delivered Myriam Days: Prior Verbal Notification: Recipient Understood Notice: Yes Recipient Signature: Yes Med Rec Note Co-signed by Attending: Coverage Notice Comment: [facility] FOR SNF [facility], TALK TO DAUGHTER AFTER 4PM TO SEE IF SNF OR WET END HELPER. Reviewer: [id number] [place] Rios Notice Issued Date-Time: 08/13/2018 12:43 Notice Type: IM Discharge Notice Notice Delivered To: Family Member Relationship to Patient: Spouse Ticket Taker Ferryboat Name: DEVAUGHN KNIHGT Delivery Method: HAND - Hand Delivered Myriam Days: Prior Verbal Notification: Recipient Understood Notice: Yes Recipient Signature: Yes Med Rec Note Co-signed by Attending: Coverage Notice Comment: Last DP export: 08/14/18 1:11 pm Patient Name: URI KNIGHT Page [phone] at 1514 All edits/amendments must be made on the electronic document DICTATION DATE: 08/14/181512 PATIENT CARE ASSOCIATE: NESSA 08/14/181512 RPT#: [id number] DC DATE: STATUS: ADM IN [facility] [address] [place] [address] END OF REPORT
--- NOTE | 2018-08-14 15:18 | NUR ---
REPORT CALLED TO PEPE AT [facility]. VITAL SIGNS ARE STABLE. PATIENT AND ALL BELONGINGS ARE TRANSPORTED TO [facility] AT THIS TIME.
--- NOTE | 2018-08-15 08:46 | MORECARE ---
CASE MANAGEMENT DISCHARGE SUMMARY PATIENT: URI KNIGHT UNIT: [id number] ADM DATE: 08/07/18 AGE: 83 : 36 SEX: M ROOM/BED: D.1206 AUTHOR: JUAN ALFARO PHYSICIAN: REFERRING PHYSICIAN: ANGELA NEWTON MD DATE OF SERVICE: 08/15/18 Discharge Plan Patient Name: URI KNIGHT Facility: [facility]:[place] : 1935 Planned Disposition: Long Term Facility Anticipated Discharge Date: 08/14/18 Discharge Date: 08/14/2018 Expected LOS: 7 Initial Reviewer: [email or web address] Initial Review Date: 08/09/2018 Generated: 08/15/18 9:46 am Comments DCP- Discharge Planning Updated by [email or web address]: Deloris Rios on 08/14/18 1:[address] Patient Name: URI KNIGHT Admission Status: ER Accout number: [id number] Admission Date: 08-07-2018 : 1935 Admission Diagnosis:WEAKNESS Attending: ANGELA NEWTON Current LOS: 7 Anticipated DC Date: 08-14-2018 Planned Disposition: Long Term Facility Primary Insurance: MEDICARE A & B Discharge Planning Comments: CM SPOKE WITH ELVIS AT [facility] TODAY AND SHE STATES THEY WILL ACCEPT. CALL HER AT [phone] TO SET UP TIME FOR VAN. GLADIS RN NOTIFIED AND SHE IS CONTACTING MD. MICHAEL TO FOLLOW AND ASSIST. Family And Consumer Sciences Teacher: Deloris Rios Appended by Deloris Rios on 08/14/2018 14:05 CDT: VAN TO EDUCATION TEACHER PATIENT AROUND 3PM. SUKH NOTIFIED. DCP- Discharge Planning Updated by [email or web address]: Deloris Rios on 08/13/18 2:[address] Patient Name: URI KNIGHT Admission Status: ER Accout number: [id number] Admission Date: 08-07-2018 : 1935 Admission Diagnosis:WEAKNESS Attending: ANGELA NEWTON Current LOS: 6 Anticipated DC Date: Planned Disposition: Long Term Facility Primary Insurance: MEDICARE A & B Discharge Planning Comments: CM WAITING FOR CALL BACK FROM [facility] ABOUT SNF CARE. CM NOTIFIED TAIWO AT [facility] THAT PATIENT MAY DC TOMORROW. CM WILL FOLLOW AND ASSIST NEEDED WITH DC PLANNING NEEDS. Family And Consumer Sciences Teacher: Deloris Rios DCP- Discharge Planning Updated by [email or web address]: Deloris Rios on 08/09/18 1:[address] Patient Name: URI KNIGHT Admission Status: ER Accout number: [id number] Admission Date: 08-07-2018 : 1935 Admission Diagnosis: Attending: ANGELA NEWTON Current LOS: 2 Anticipated DC Date: Planned Disposition: Long Term Facility Primary Insurance: MEDICARE A & B Discharge Planning Comments: CM MET WITH PATIENT AND HIS DEVAUGHN ABOUT DC PLANNING/NEEDS. THE STATES HE IS HAVING FREQUENT FALLS AND UNSTEADY AND SHE IS UNABLE TO CARE FOR HIM. STATES WANTS ME TO CALL THEIR DAUGHTER AT [phone] AFTER 4PM TODAY. POSSIBLE SENIOR SEARCH MARKETING ANALYST CARE OR SNF, THE THINKS ITS WITH [facility]. GRUPO SIGNED FOR ALEC ZURITA TO FOLLOW AND ASSIST NEEDED WITH DC PLANNING/NEEDS. Family And Consumer Sciences Teacher: Deloris Rios DCPIA - Discharge Planning Initial Assessment Updated by [email or web address]: Deloris Rios on 08/09/18 2:45 pm * Is the patient Alert and Oriented? No * PCP * Pharmacy [facility] * Preadmission Environment Home with Family * ADLs Partial Dependent * Equipment Walker Wheelchair * List name and contact numbers for known caregivers / representatives who currently or will assist patient after discharge: DEVAUGHN, MARÍA, DAUGHTER, [phone] * Verbal permission to speak to the caregivers and representatives has been obtained from the patient. Yes * Community resources currently utilized Home Health * Please name any agencies selected above. [facility] * Additional services required to return to the preadmission environment? Yes * Has this patient been hospitalized within the prior 30 days at any hospital? No Coverage Notice Reviewer: [id number] Virginia Rios Notice Issued Date-Time: 08/09/2018 14:48 Notice Type: Patient Choice Letter Notice Delivered To: Family Member Relationship to Patient: Spouse Industrial Maintenance Electrician Name: DEVAUGHN KNIGHT Delivery Method: HAND - Hand Delivered Myriam Days: Prior Verbal Notification: Recipient Understood Notice: Yes Recipient Signature: Yes Med Rec Note Co-signed by Attending: Coverage Notice Comment: GRUPO FOR SNF [facility]UD[facility], TALK TO DAUGHTER AFTER 4PM TO SEE IF SNF OR SKILLED NURSING. Reviewer: [email or web address] Virginia Rios Notice Issued Date-Time: 08/13/2018 12:43 Notice Type: IM Discharge Notice Notice Delivered To: Family Member Relationship to Patient: Spouse Industrial Maintenance Electrician Name: DEVAUGHN KNIGHT Delivery Method: HAND - Hand Delivered Myriam Days: Prior Verbal Notification: Recipient Understood Notice: Yes Recipient Signature: Yes Med Rec Note Co-signed by Attending: Coverage Notice Comment: Last DP export: 08/14/18 2:14 pm Patient Name: URI KNIGHT Page [phone] at 0846 All edits/amendments must be made on the electronic document DICTATION DATE: 08/15/18845 ELECTRONIC SCIENCE TEACHER: NESSA 08/15/1846 RPT#: [id number] DC DATE:08/14/18 STATUS: DIS IN [facility] [address] [place] [address] END OF REPORT
== END 2018-08-14 15:19 | DRG 698 ==
LOC: D.ER 12:03 → D.EDHOLD 17:26 → D.M3 17:26
PROVIDERS: Emergency Medicine; ADMIT Family Medicine; ATTEND Family Medicine
DX: N28.9 Disorder of kidney and ureter, unspecified (principal); J18.9 Pneumonia, unspecified organism; I13.0 Hypertensive heart and chronic kidney disease with heart failure and stage 1 through stage 4 chronic kidney disease, or unspecified chronic kidney disease; L03.116 Cellulitis of left lower limb; R54 Age-related physical debility; N18.9 Chronic kidney disease, unspecified; E87.5 Hyperkalemia; I48.0 Paroxysmal atrial fibrillation; M62.50 Muscle wasting and atrophy, not elsewhere classified, unspecified site; R26.89 Other abnormalities of gait and mobility; L97.529 Non-pressure chronic ulcer of other part of left foot with unspecified severity; I50.9 Heart failure, unspecified; J40 Bronchitis, not specified as acute or chronic; F03.90 Unspecified dementia, unspecified severity, without behavioral disturbance, psychotic disturbance, mood disturbance, and anxiety; E11.621 Type 2 diabetes mellitus with foot ulcer; E11.22 Type 2 diabetes mellitus with diabetic chronic kidney disease; R41.81 Age-related cognitive decline; E11.51 Type 2 diabetes mellitus with diabetic peripheral angiopathy without gangrene; E88.81 Metabolic syndrome and other insulin resistance; I25.10 Atherosclerotic heart disease of native coronary artery without angina pectoris; Z95.2 Presence of prosthetic heart valve

== ENCOUNTER 2018-09-13 20:15 | Inpatient (IN) | payer MEDICARE, BC ==
[2018-09-13] VITALS (8 sets, daily range): BP systolic 94–126; BP diastolic 53–75
--- NOTE | ~2018-09-13 | HEMODYNAMI ---
PATIENT:URI KNIGHT MEDICAL RECORD: [id number] : 37 LOCATION:[facility] D.2304 ADMISSION DATE: 09/13/18 Generatedon:09/16/201810:44 Patient name: URI KNIGHT Patient #: [id number] SSN: : 1935 Date of study: 09/16/2018 Page: Of Hemodynamic Procedure Report Patient Data Patient Demographics Procedure consent was obtained First Name: URI Gender: Male Last Name: ANTONIA : 1935 Patient #: [id number] Age: 83 year(s) Race: Unknown Additional ID: [id number] Contact details Address: [facility] [address] State: [place] City: [place] Zip code: [address] Past Medical History Allergies: No known allergies Admission Admission Data Admission Date: 09/13/2018 Admission Time: 23:53 Room #: D.2304 Weight (lbs.): 264 Weight (kg.): 119.75 Lab Results Lab Result Date: 09/16/2018 Lab Result Time: 0:00 Biochemistry Name Units Result Min Max BUN mg/dl 52 --(----)-* 7 18 Creatinine mg/dl 2.8 --(----)-* 0.6 1.3 CBC Name Units Result Min Max Hematocrit % 33 *-(----)-- 42 54 Hemoglobin g/dl 10.3 *-(----)-- 13.5 17.5 Procedure Procedure Types Cath Procedure Diagnostic Procedure LHC Coronaries w/Grafts PCI Procedure AMI/SVG/MAT REPAIRER PTCA or Stent SVG-BMS/ANNETTE Initial Procedure Description Procedure Date Procedure Date: 09/16/2018 Procedure Start Time: 10:12 Procedure End Time: 10:43 Procedure Staff Name Function Hudson Barrientos MD Performing Physician Liliya Valenzuela RT Monitor Neeta Cordon RT Scrub Hanna Kidd RN Nurse Procedure Data Cath Procedure Fluoroscopy Diagnostic fluoroscopy Total fluoroscopy Time: 5.2 time: 5.2 min min Diagnostic fluoroscopy Total fluoroscopy dose: dose: 1087 mGy 1087 mGy Contrast Material Contrast Material Type Amount (ml) Isovue 300 110 Entry Location Entry Primary Successful Side Size Upsize Upsize Entry Closure Succes sful Closure Location (Fr) 1 (Fr) 2 (Fr) Remarks Device Remarks Femoral Right 5 Fr 6 Fr Exoseal artery Short Estimated blood loss: 10 ml Diagnostic catheters Device Type Used For End Catheter Placement MULTIPACK JL 4.0 5Fr Procedure catheter MULTIPACK 3DRC 5Fr Procedure catheter DIAGNOSTIC AR MOD 5Fr Procedure Catheter ([id number]) Procedure Complications No complications Procedure Medications Medication Administration Route Dosage 0.9% NaCl I.V. Oxygen etCO2 Nasal cannula 2 l/min Lidocaine 2% added to field 20 Heparin Flush Bag added to field 2 bags (1000units/500ml NS) unlisted medication I.V. drip 0.5 mg/min Heparin Bolus I.V. 5000 units Integrilin (Bolus I.V. 10.7 ml 2mg/ml) Integrilin (Bolus I.C. 10.7 ml 2mg/ml) Versed 1 mg Versed 1 mg Fentanyl 25 mcg Integrilin Drip I.V. drip 9.5 ml/hr (75mg/100ml) Hemodynamics Rest Heart Rate: 96 (bpm) Snapshots Pre Cath Intra NCS Post Cath Vital Signs Time Heart Resp SPO2 etCO2 NIBP Rhythm Pain Sedation Rate (ipm) (%) (mmHg) (mmHg) Status Level (bpm) 9:59:03 97 37 98 13.5 131/72(95) NSR 0 (11) 10(A) , No pain 10:03:27 95 24 98 27 133/70(91) NSR 0 (11) 10(A) , No pain 10:07:50 96 33 96 30 125/70(93) NSR 0 (11) 10(A) , No pain 10:12:10 98 27 97 27 122/73(91) NSR 0 (11) 10(A) , No pain 10:16:30 96 19 96 16.6 113/70(87) NSR 0 (11) 10(A) , No pain 10:20:50 98 28 97 19.6 116/63(90) NSR 0 (11) 10(A) , No pain 10:25:14 96 24 98 27.9 105/64(80) NSR 0 (11) 10(A) , No pain 10:29:32 95 31 99 22.6 95/60(69) NSR 0 (11) 9(A) , No pain 10:33:44 96 31 97 30.1 112/70(90) NSR 0 (11) 9(A) , No pain 10:38:02 96 33 97 26.3 108/61(80) NSR 0 (11) 10(A) , No pain 10:43:01 96 33 96 0 Measuring NSR 0 (11) 10(A) , No pain 10:43:14 95 33 96 0 103/72(87) NSR 0 (11) 10(A) , No pain Medications Time Medication Route Dose Verified Delivered Reason Note s Effectiveness by by 9:57:58 0.9% NaCl I.V. kvo Hudson Valenciaa used for [facility] procedure MD FLOYD 9:58:05 Oxygen etCO2 2 Hudson Ferreira used for Nasal l/min [facility] procedure cannula MD FLOYD 9:58:09 Lidocaine 2% added 20ml Hudson Treviño for local to vial [facility] anesthetic field MD MENA 9:58:14 Heparin Flush added 2 bags Hudson Treviño used for Bag to [facility] procedure (1000units/500ml field MD MENA NS) 9:59:53 Amiodarone I.V. 0.5 Hudson Valenciaa Per physician infu sing (360mg/200mL) drip mg/min [facility] upon MD FLOYD arrival 10:25:28 Heparin Bolus I.V. 5000 Hudson Valenciaa for veri fied units [facility] anticoagulation with Dr. MD FLOYD [place] 10:27:36 Versed 1 mg Hudson Barrientos MD, MD 10:27:42 Integrilin I.V. 10.7 Hudson Valenciaa for wast ed (Bolus 2mg/ml) ml [facility] Kidd antiplatelet 9.3mL MD FLOYD therapy 10:27:43 Fentanyl 25 mcg Hudson Barrientos MD, MD 10:32:53 Integrilin I.C. 10.7 Hudson Treviño for (Bolus 2mg/ml) ml [facility] Willie Barrientos antiplatelet MD MENA therapy 10:33:25 Versed 1 mg Hudson Barrientos MD, MD 10:38:15 Integrilin Drip I.V. 9.5 Hudson Ferreira for (75mg/100ml) drip ml/hr [facility] Willie flores MD RN therapy Procedure Log Time Note 9:30:55 Hanna Kidd RN sent for patient. Start room use. 9:36:52 Signed procedure consent form obtained from patient. 9:36:53 Diagnostic Cath status Urgent 9:37:02 Time tracking: Regular hours (M-F 7:00 - 5:00) 9:37:07 Plan of Care:Hemodynamics will remain stable., Cardiac rhythm will remain stable., Comfort level will be maintained., Respiratory function will remain adequate., Patient/ family verbilizes understanding of procedure., Procedure tolerated without complication., Recovers from procedure without complications.. 9:41:46 Lab Result : BUN 52 mg/dl 9::46 Lab Result : Hemoglobin 10.3 g/dl 9::46 Lab Result : Creatinine 2.8 mg/dl 9::46 Lab Result : Hematocrit 33 % 9:42:09 Patient Weight : 264 lbs 9:50:22 Patient received from ICU to CCL 1 Alert and oriented. Tansferred to table in Supine position. 9:50:23 Warm blankets applied, and miguel hugger turned on for patient comfort. 9:50:23 Correct patient and procedure confirmed by team. 9:50:24 ECG and BP/O2 sat monitors applied to patient. 9:57:47 Vital chart was started 9:57:58 0.9% NaCl kvo I.V. was administered by Hanna Kidd RN; used for procedure; 9:58:05 Oxygen 2 l/min etCO2 Nasal cannula was administered by Hanna Kidd RN; used for procedure; 9:58:09 Lidocaine 2% 20ml vial added to field was administered by Hudson Barrientos MD; for local anesthetic; 9:58:14 Heparin Flush Bag (1000units/500ml NS) 2 bags added to field was administered by Hudson Barrientos MD; used for procedure; 9:59:53 Amiodarone (360mg/200mL) 0.5 mg/min I.V. drip was administered by Hanna Kidd RN; Per physician; infusing upon arrival 10:03:49 Baseline sample Acquired. 10:03:53 Rhythm: sinus rhythm 10:03:54 Full Disclosure recording started 10:03:55 Pre-procedure instructions explained to patient. 10:03:56 Pre-op teaching completed and patient verbalized understanding. 10:03:58 Family in patients room. 10:03:59 Patient NPO since Midnight. 10:04:03 Patient allergic to No known allergies 10:04:05 Is patient on blood thinner?No 10:04:14 Patient diabetic? Yes. 10:04:15 If diabetic: On Metformin? No 10:04:19 Previous problem with sedation/anesthesia? No ? 10:04:20 Snore? No 10:04:21 Sleep apnea? No 10:04:23 Deviated septum? No 10:04:23 Opens mouth fully? Yes 10:04:24 Sticks out tongue? Yes 10:04:26 Airway obstruction? No ? 10:04:31 Dentures? Yes IN TIGHT 10:04:34 Pre procedure: right dorsailis pedis pulse 1+ Palpable, but thready & weak; easily obliterated 10:04:40 IV patent on arrival in right forearm with 0.9% NaCl at O. 10:04:42 Lab results completed and on chart. 10:04:45 Right groin area was prepped with chlora-prep and draped in sterile fashion 10:04:47 Alarms reviewed by R. N. 10:04:47 Sharps counted by scrub and verified by R.N. 10:04:52 Use device set Femoral Dx 10:04:53 ACIST Syringe (34185) opened to sterile field. 10:04:54 Bag Decanter (2002S) opened to sterile field. 10:04:55 ACIST Hand Control (23261) opened to sterile field. 10:04:56 ACIST Manifold (50594) opened to sterile field. 10:04:56 Tegaderm 4 x 4 (1626W) opened to sterile field. 10:04:58 Medline Cath Pack ([id number]) opened to sterile field. 10:04:58 DIAGNOSTIC WIRE .035 260cm J wire (384484) opened to sterile field. 10:04:59 DIAGNOSTIC Multipack 5Fr catheter set (GP0393) opened to sterile field. 10:05:00 SHEATH 5FR [employer] (JDH782) opened to sterile field. 10:06:22 --------ALL STOP TIME OUT------ 10::23 Final Timeout: patient, procedure, and site verified with staff and physician. All members of the team are in agreement. 10:06:24 Right groin site verified by team. 10:07:15 Maximum allowable Isovue 300 dose 214ml. Physician notified. (300ml for normal creatinines. For patients with creatinine of 1.7 or higher multiply weight(kg) x 5 divided by creatinine.) 10:07:18 Fire Safety Assessment: A--An alcohol-based skin anteseptic being used preoperatively., C--Open oxygen or nitrous oxide is being used., D--An ESU, laser, or fiber-optic light is being used. 10::22 Physical assessment completed. ASA score P 3 - A patient with severe systemic disease as per Hudson Barrientos MD. 10:07:24 Sedation plan: IV Moderate Sedation Medication:Versed, Fentanyl 10:10:07 Zero performed for pressure channel P1 10:11:49 Procedure started. 10:12:15 Local anesthetic to right femoral artery with Lidocaine 2% by Hudson Barrientos MD.INITIAL ACCESS ONLY 10:13:12 A 5 Fr sheath was inserted into the Right Femoral artery 10:13:19 Procedure type changed to Cath procedure, Diagnostic procedure, LHC, Coronaries w/Grafts, PCI procedure, AMI/SVG/MAT REPAIRER PTCA or Stent, SVG-BMS/ANNETTE Initial 10:13:30 A MULTIPACK JL 4.0 5Fr catheter was advanced over the wire and used for Procedure. 10:14:48 LCA angiography performed. 10:15:06 Catheter removed. 10:15:44 A MULTIPACK 3DRC 5Fr catheter was advanced over the wire and used for Procedure. 10:16:13 RCA angiography performed. 10:16:28 SVG to RCA angiography performed. 10:17:13 Catheter removed. 10:17:45 A DIAGNOSTIC AR MOD 5Fr Catheter ([id number]) was advanced over the wire and used for Procedure. 10:19:33 SVG to Circ angiography performed. 10:20:48 Catheter removed. 10:21:11 SHEATH 6FR [employer] (TNF017) opened to sterile field. 10:21:11 INFLATOR Merit BasixCompak (GR1248) opened to sterile field. 10:21:12 WHISPER 300cm guide wire ([id number]) opened to sterile field. 10:22:56 GUIDE 6FR MB 1 catheter (LA6MB1) opened to sterile field. 10:23:06 Sheath upsized to a 6 Fr Short. 10:23:26 6 Fr MB 1 guide catheter was inserted over the wire 10:24:48 WHISPER 300 wire advanced. 10:25:15 Wire advanced across lesion. 10:25:28 Heparin Bolus 5000 units I.V. was administered by Hanna Kidd RN; for anticoagulation; verified with Dr. Ladd 10:27:23 Inflate balloon Inflation number: 1 A EUPHORA 2.5 x 25 Balloon ([id number]) was prepped and advanced across the Aorta Right -> Mid RCA , then inflated to 8 KHOI for 0:15 (min:sec) . 10:27:36 Versed 1 mg was administered by Hudson Barrientos MD; ; 10:27:42 Integrilin (Bolus 2mg/ml) 10.7 ml I.V. was administered by Hanna Kdid RN; for antiplatelet therapy; wasted 9.3mL 10:27:43 Fentanyl 25 mcg was administered by Hudson Barrientos MD; ; 10:28:00 Inflation number: 2 The EUPHORA 2.5 x 25 Balloon ([id number]) was reinflated across the Aorta Right -> Mid RCA , to 8 KHOI for 0:15 (min:sec) . 10:28:49 Inflation number: 3 The EUPHORA 2.5 x 25 Balloon ([id number]) was reinflated across the Aorta Right -> Mid RCA , to 10 KHOI for 0:10 (min:sec) . 10:29:27 Balloon removed over the wire. 10:32:53 Integrilin (Bolus 2mg/ml) 10.7 ml I.C. was administered by Hudson Barrientos MD; for antiplatelet therapy; 10:33:25 Versed 1 mg was administered by Hudson Barrientos MD; ; 10:35:18 Place stent Inflation Number: 4 A INTEGRITY OTW 3.5 X 12 stent ([id number]) was prepped and advanced across the Aorta Right -> Mid RCA . The stent was deployed at 16 KHOI for 0:15 (min:sec) . 10:35:49 Stent catheter was removed intact over wire. 10:35:51 Wire removed. 10:36:01 Guide catheter removed. 10:36:20 EXOSEAL 6Fr (EX600) opened to sterile field. 10:37:09 Sheath removed intact; hemostasis achieved with Exoseal to the Right Femoral artery. 10:37:11 Procedure ended.(Physican Out) 10:37:45 Fluoroscopy time 05.20 minutes. 10:37:49 Fluoroscopy dose: 1087 mGy 10:37:49 Flurop Dose total: 1087 10:37:52 Contrast amount:Isovue 300 110ml. 10:37:53 Sharps counted by scrub and verified by R.N. 10:37:56 Post-op/insertion site Right Femoral artery dressed using a 4 x 4 and Tegaderm. 10:37:58 Post-procedure physical assessment completed. ASA score P 2 - A patient with mild systemic disease as per Hudson Barrientos MD. 10:38:01 Post procedure rhythm: sinus rhythm 10:38:04 Estimated blood loss: 10 ml 10:38:05 Post procedure instruction explained to patient.Patient verbalizes understanding. 10:38:05 Patient needs reinforcement of post procedure teaching. 10:38:15 Integrilin Drip (75mg/100ml) 9.5 ml/hr I.V. drip was administered by Hanna Kidd RN; for antiplatelet therapy; 10:39:48 Procedure and supply charges have been captured, reviewed, submitted and are correct. 10:39:51 Procedure Complication : No complications 10:43:11 Vital chart was stopped 10:43:11 See physician's report for complete and final results. 10:43:14 Report given to ICU. 10:43:16 Patient transfered to ICU with Bed. 10:43:18 Procedure ended. 10:43:18 Full Disclosure recording stopped 10:43:20 End room use (Document Last) Intervention Summary Intervention Notes Time ActionType Lesion and Equipment Action# Pressure Duration Attributes Used 10:27:23 Inflate Aorta Right EUPHORA 2.5 1 8 00:15 balloon -> Mid RCA x 25 Balloon ([id number]) 10:28:00 Reinflate Aorta Right EUPHORA 2.5 2 8 00:15 balloon -> Mid RCA x 25 Balloon ([id number]) 10:28:49 Reinflate Aorta Right EUPHORA 2.5 3 10 00:10 balloon -> Mid RCA x 25 Balloon ([id number]) 10:35:18 Place stent Aorta Right INTEGRITY 4 16 00:15 -> Mid RCA OTW 3.5 X 12 stent ([id number]) Device Usage Item Name Manufacture Quantity Catalog Hospital Part Current Minimal L ot# / Number Charge Number Stock Stock Serial# Code ACIST Acist 1 83935 391246 107951 620282 20 Syringe Medical (79158) Systems Inc Bag Microtek 1 846021 88033 026665 5 Decanter Medical Inc. () ACIST Hand Acist 1 38624 629388 979482 986301 5 Control Medical (13846) Systems Inc ACIST Acist 1 60835 436791 257139 034254 5 Manifold Medical (95685) Systems Inc Tegaderm 4 3M 1 1626W 925332 936064 801847 5 x 4 (1626W) Medline Medline 1 [id number] 196199 61183 544143 5 Cath Pack ([id number]) DIAGNOSTIC [facility] 1 142172 584842 070147 208315 30 WIRE .035 260cm J wire (043715) DIAGNOSTIC Cardinal 1 WH1391 095877 44832 583980 30 Multipack Health 5Fr catheter set (QN2413) SHEATH 5FR Terumo 1 BRP394 761497 743632 034944 5 [employer] (DXZ239) MULTIPACK Cardinal 1 057851 5 JL 4.0 5Fr Health catheter MULTIPACK Cardinal 1 546048 5 3DRC 5Fr Health catheter DIAGNOSTIC Cardinal 1 [id number] 613525 123046 744442 15 AR MOD 5Fr Health Catheter (701958Z) SHEATH 6FR Terumo 1 GFD994 990719 115958 793793 40 [employer] (NFY072) INFLATOR Merit 1 CH8337 392771 749775 994231 15 [employer] Medical BasixCompak (UB7104) WHISPER Esteves 1 [id number] 841489 336916 924289 5 300cm guide Vascular wire (9862422RX) GUIDE 6FR Medtronic 1 LA6MB1 227967 29347 475991 1 MB 1 catheter (LA6MB1) EUPHORA 2.5 Medtronic 1 [id number] 057459 560479 510043 5 2 [id number] x 25 Balloon ([id number]) INTEGRITY Medtronic 1 [id number] 714060 416376 430002 1 0 [id number] OTW 3.5 X 12 stent ([id number]) EXOSEAL 6Fr Cardinal 1 EX600 594925 481858 261172 10 (EX600) Health Signature Audit [place] Stage Time Signature Unsigned Intra-Procedure 09/16/2018 Liliya Valenzuela 10:43:56 AM RT(R) Signatures Monitor : Liliya Valenzuela Signature : RT Date : Time : [address] [address]
[~2018-09-13 20:15] MED LIST changes: +CEFTIN PO; +COUMADIN2.5 MG PO; +JANUVIA50 MG PO; +LEVEMIR FL100 UNIT/1 SQ
[2018-09-13 20:52] LABS: BASOPHILS 0.4 % (0-2); EOSINOPHILS 1.8 % (0-7); HEMATOCRIT 36.1 % (42.0-54.0); HEMOGLOBIN 11.5 g/dL (13.5-17.5); IMMATURE GRANULOCYTES 0.5 % (0-5); LYMPHOCYTES 15.3 % (15-50); MCH 28.5 pg (26.0-34.0); MCHC 31.9 g/dL (31.0-37.0); MCV 89.4 fL (80.0-100.0); MEAN PLATELET VOLUME 11.2 fL (7.4-10.4); MONOCYTES 11.5 % (2-11); NEUTROPHILS 70.5 % (40-80); RBC 4.04 10x6/uL (4.20-6.10); RDW 15.7 % (11.5-14.5); WBC 8.2 10x3/uL (4.8-10.8)
[2018-09-13 20:55] LABS: PLATELET COUNT 185 10x3/uL (130-400)
[2018-09-13 21:03] LABS: INR 2.22 (0.85-1.17); PROTIME 23.9 SECONDS (11.6-15.0)
[2018-09-13 21:04] LABS: ALBUMIN 2.7 g/dL (3.4-5.0); ALKALINE PHOSPHATASE 66 U/L (46-116); ALT (SGPT) 11 U/L (10-68); APTT 63.2 SECONDS (22.8-39.4); BILIRUBIN - TOTAL 0.28 mg/dL (0.2-1.3); CALC OSMOLALITY 290 mosm/kg (275-300); CALCIUM 8.7 mg/dL (8.5-10.1); CARBON DIOXIDE 23.8 mmol/L (21.0-32.0); CHLORIDE - SERUM 101 mmol/L (98-107); CREATININE - SERUM 2.5 mg/dL (0.6-1.3); PROTEIN - SERUM 7.4 g/dL (6.4-8.2); SODIUM 134 mmol/L (136-145); UREA NITROGEN 31 mg/dL (7-18); eGFR NON AFRICAN AMERICAN 26 mL/min (90-120)
[2018-09-13 21:05] LABS: GLUCOSE 388 mg/dL (74-106); MAGNESIUM - SERUM 2.1 mg/dL (1.8-2.4)
[2018-09-13 21:07] LABS: POTASSIUM - SERUM 4.9 mmol/L (3.5-5.1)
--- NOTE | 2018-09-13 21:40 | NUR ---
PT REPORTS CHEST PAIN AT [address] EMERY ADVISED OF BLOOD PRESSURE DROPPING AND NO 3RD DOSE OF NITRO GIVEN.
[2018-09-13 21:57] LABS: CKMB 5.1 U/L (0.0-3.6); CREATINE KINASE 176 UL (21-232)
[2018-09-13 21:58] LABS: TROPONIN-I 1.941 ng/mL (0.000-0.060)
--- NOTE | 2018-09-13 22:42 | NUR ---
REPEAT EKG 2239 SINUS TACHYCARDIA
[2018-09-14] VITALS (23 sets, daily range): BP systolic 82–116; BP diastolic 45–66; BMI 35.0
--- NOTE | 2018-09-14 02:34 | NUR ---
PT TO UNIT VIA STRETCHER FROM ER WITH NURSE. TRANSFERRED TO ICU BED, TOLERATED WELL. PLACED ON MONITOR WITH HR 111 OTHER VITALS WNL. RECEIVING O2 VIA N/C AT 2LPM. IV TO RIGHT HAND S/L. MEDICATIONS GIVEN PER JUN. PT RESTING WITH EYES CLOSED AND EASILY AWOKEN. CALL LIGHT IN REACH. WILL CONTINUE TO OBSERVE.
--- NOTE | 2018-09-14 03:12 | NUR ---
REASSESSMENT COMPLETED, SEE FLOW SHEET. LAB AT BEDSIDE.
[2018-09-14 03:33] LABS: BASOPHILS 0.5 % (0-2); EOSINOPHILS 1.4 % (0-7); IMMATURE GRANULOCYTES 0.5 % (0-5); LYMPHOCYTES 18.6 % (15-50); MCH 28.3 pg (26.0-34.0); MCHC 31.4 g/dL (31.0-37.0); MEAN PLATELET VOLUME 11.6 fL (7.4-10.4); MONOCYTES 11.9 % (2-11); NEUTROPHILS 67.1 % (40-80); PLATELET COUNT 185 10x3/uL (130-400); RBC 3.89 10x6/uL (4.20-6.10); RDW 15.8 % (11.5-14.5); WBC 8.6 10x3/uL (4.8-10.8)
[2018-09-14 03:46] LABS: APTT 52.4 SECONDS (22.8-39.4); INR 2.17 (0.85-1.17); PROTIME 23.5 SECONDS (11.6-15.0)
[2018-09-14 04:03] LABS: ALBUMIN 2.6 g/dL (3.4-5.0); ALKALINE PHOSPHATASE 62 U/L (46-116); ALT (SGPT) 11 U/L (10-68); BILIRUBIN - TOTAL 0.35 mg/dL (0.2-1.3); CALC OSMOLALITY 291 mosm/kg (275-300); CALCIUM 8.9 mg/dL (8.5-10.1); CARBON DIOXIDE 28.1 mmol/L (21.0-32.0); CHLORIDE - SERUM 102 mmol/L (98-107); CKMB 24.4 U/L (0.0-3.6); CREATINE KINASE 431 UL (21-232); CREATININE - SERUM 2.4 mg/dL (0.6-1.3); GLUCOSE 339 mg/dL (74-106); POTASSIUM - SERUM 5.3 mmol/L (3.5-5.1); PROTEIN - SERUM 7.2 g/dL (6.4-8.2); SODIUM 136 mmol/L (136-145); UREA NITROGEN 32 mg/dL (7-18); eGFR NON AFRICAN AMERICAN 28 mL/min (90-120)
[2018-09-14 04:04] LABS: TROPONIN-I 9.035 ng/mL (0.000-0.060)
--- NOTE | 2018-09-14 06:24 | NUR ---
DR TANNER CALLED AND REPORTED CARDIAC ENZYMES RETURNS. INTITALLY REORDERED MORE LABS, THEN ASKED FOR INR READING WHICH 2.17. HE CANCELLED ENZYMES RECHECK. NO ORDERS GIVEN AT THIS TIME. PT INCONTINENT OF URINE. BRIEF REMOVED. PERICARE PROVIDED WITH NEW PAD AND FLAT SHEET PROVIDED. WILL CONTINUE TO OBSERVE.
--- NOTE | 2018-09-14 07:00 | NUR ---
REC'D SUPINE, EYES CLOSED, RESP UNLABORED.
--- NOTE | 2018-09-14 08:00 | NUR ---
ASSESSED, GRUMPY BUT COOPERATIVE. SON IN AND UPDATED.
--- NOTE | 2018-09-14 08:10 | NUR ---
DR NEWTON ROUNDS- ORDERS REC'D.
--- NOTE | 2018-09-14 09:50 | NUR ---
DR TANNER ROUNDS- SPEAKS W/ FAMILY.
--- NOTE | 2018-09-14 12:00 | NUR ---
REASSESSED W/O CHANGE. APPETITE REMAINS POOR.
--- NOTE | 2018-09-14 14:00 | NUR ---
REPOSITIONED. INCONT URINE.
--- NOTE | 2018-09-14 16:00 | NUR ---
REASSESSED, INCONT URINE. CHG BATH GIVEN. FAMILY IN AND UPDATED.
--- NOTE | 2018-09-14 17:30 | NUR ---
16 FR ALBA INSERTED USING ASEPTIC TECHNIQUE W/ NO DIFFICULTY AND RETURN OF CLEAR YELLOW URINE.
--- NOTE | 2018-09-14 18:00 | NUR ---
C/O LEFT HIP PAIN, REPOSITIONED FOR COMFORT. STATES IS BETTER AFTER A FEW MIN.
--- NOTE | 2018-09-14 20:13 | NUR ---
TEMP WAS 102.8F AXILLARY. JACKET REMOVED FROM PT, PRN MEDS GIVEN. WILL REASSESS.
--- NOTE | 2018-09-14 22:00 | NUR ---
TEMP 101.4, AXILLARY. COVERS REMOVED, PT VWERBALIZED NO COMPLAINTS. WILL CONTINUE TO MONITOR.
[2018-09-15] VITALS (33 sets, daily range): BP systolic 76–134; BP diastolic 48–71
--- NOTE | 2018-09-15 | NUR ---
PT CALLING OUT C/O PAIN. SAYS "MY HIPS AND BACK ARE HURTING" PTS B/P HAS BEEN ON LOW SIDE SEE PRN MORPHINE ORDER 1 MG GIVEN SIVP SINCE PT HAS BEEN HYPOTENSIVE. WILL CONTINUE TO MONITOR.
--- NOTE | 2018-09-15 02:09 | NUR ---
EXTRA BLANKET PROVIDED PER REQUEST, PT DENIES ANY OTHER NEEDS, CALL LIGHT IN REACH, VSS.
[2018-09-15 03:52] LABS: BASOPHILS 0.5 % (0-2); EOSINOPHILS 0.4 % (0-7); HEMATOCRIT 34.3 % (42.0-54.0); HEMOGLOBIN 10.7 g/dL (13.5-17.5); IMMATURE GRANULOCYTES 0.4 % (0-5); MCH 28.3 pg (26.0-34.0); MCHC 31.2 g/dL (31.0-37.0); MCV 90.7 fL (80.0-100.0); MEAN PLATELET VOLUME 11.3 fL (7.4-10.4); MONOCYTES 13.7 % (2-11); PLATELET COUNT 183 10x3/uL (130-400); RBC 3.78 10x6/uL (4.20-6.10); RDW 15.8 % (11.5-14.5); WBC 10.5 10x3/uL (4.8-10.8)
[2018-09-15 04:13] LABS: ANION GAP 13.2 mmol/L (8-16); CALCIUM 8.9 mg/dL (8.5-10.1); CARBON DIOXIDE 25.9 mmol/L (21.0-32.0); CREATININE - SERUM 2.8 mg/dL (0.6-1.3); POTASSIUM - SERUM 5.1 mmol/L (3.5-5.1)
[2018-09-15 04:18] LABS: INR 1.4 (0.85-1.17); PROTIME 16.5 SECONDS (11.6-15.0)
--- NOTE | 2018-09-15 07:00 | NUR ---
REC'D RT SIDE,OPENS EYES UPON ENTRY TO ROOM. MUCH MORE ALERT TODAY. VSS, DENIES PAIN OR ANY NEED AT THIS TIME.
--- NOTE | 2018-09-15 07:50 | NUR ---
ASSESSED. REPOSITIONED, FAMILY IN AND UPDATED.
--- NOTE | 2018-09-15 08:37 | NUR ---
CONSENTS FOR CARDIAC CATH AND BLOOD TRANSFUSION OBTAINED FROM . OTHER FAMILY AT BEDSIDE.
--- NOTE | 2018-09-15 10:15 | NUR ---
DR TANNER SPEAKS W/ FAMILY RE: WORSENED RENAL FUNCTION AND POST PONING CATH TILL TOMORROW.
--- NOTE | 2018-09-15 11:00 | NUR ---
REASSESSED. PLEASANT, DENIES PAIN AT THIS TIME.
[2018-09-15 12:04] LABS: APPEARANCE CLEAR (CLEAR); BILIRUBIN NEGATIVE (NEGATIVE); COLOR YELLOW (YELLOW); GLUCOSE 50 mg/dL (NEGATIVE); KETONE NEGATIVE (NEGATIVE); NITRITE NEGATIVE (NEGATIVE); PROTEIN TRACE mg/dL (NEGATIVE); UROBILINOGEN NORMAL (NORMAL)
[2018-09-15 12:08] LABS: EPITHELIAL CELLS 0-5 /hpf (0-5); WHITE CELLS - URINE 0-5 /hpf (0-5)
--- NOTE | 2018-09-15 13:11 | NUR ---
NOTE CM W/ A-FIB 110s- 130s, BP UNCHANGED, STAT 12 LEAD DONE, C/O MID-STERNAL CP WHEN ASKED.
--- NOTE | 2018-09-15 13:20 | NUR ---
DR TANNER NOTIFIED OF AFIB W/RVR AND CP THRU OUTSIDE MACHINIST APPRENTICE STAFF, GIVEN MORPHINE W/ DECREASE IN PAIN TO 4.
--- NOTE | 2018-09-15 13:30 | NUR ---
VERBALIZES COMPLETE RELIEF OF CP.
[2018-09-15 14:17] LABS: CKMB 5.8 U/L (0.0-3.6)
--- NOTE | 2018-09-15 14:21 | NUR ---
DR TANNER CALLS BACK W/ ORDERS @ 2953. AMIODARONE GTT STARTED AT 1 MG/MIN AFTER 150MG BOLUS GIVEN. FAMILY @ BEDSIDE AND UPDATED OFTEN.
[2018-09-15 14:33] LABS: CREATINE KINASE 611 UL (21-232)
[2018-09-15 14:34] LABS: TROPONIN-I 13.325 ng/mL (0.000-0.060)
--- NOTE | 2018-09-15 16:10 | NUR ---
DR TANNER NOTIFIED OF CONT'D UCAFIB 110s- 130s W/ SBP 80s FOR LAST 45- 60. ORDERS REC'D. FAMILY IN AND UPDATED.
--- NOTE | 2018-09-15 17:00 | NUR ---
REMAINS IN UCAFIB 110s- 130s W/ SBP > 100.
--- NOTE | 2018-09-15 18:20 | NUR ---
DR STAHL NOTIFIED OF TEMP 101 , WORSENING COUGH AND UCAFIB 110s-130s. ORDERS REC'D. TYLENOIL GIVEN.
--- NOTE | 2018-09-15 19:00 | NUR ---
REPORT RECEIVED ASSESSMENT COMPLETE. PT PLEASANTLY CONFUSED IS ORIENTED TO HOSPITAL AND PERSON BUT TIME AND WHY CONFUSED. CM ALARMS ON AND AUDIBLE PT IN UNCONTROLLED AFIB. AMIODARONE GTT AT 1 MG TO BE DECREASED TO 0.5 WITH NEXT BAG
--- NOTE | 2018-09-15 20:30 | NUR ---
DAUGHTER AT BEDSIDE FOR VISITATION UPDATE GIVEN AND QUESTIONS ANSWERED. SHE IS CONCERNED ABOUT PNEUMONIA STATES PT HAD PNEUMONIA NOT LONG AGO,
--- NOTE | 2018-09-15 20:40 | NUR ---
DR STAHL CALLED UNIT AFTER XRAY REPORT CALLED TO HIM STATES IT IS PNEUMONIA AND GAVE ORDERS FOR ANTIBIOTICS AND PULMONOLOGY CONSULT. VANC ORDER WAS FOR PHARMACY TO DOSE... INFORMED DR STAHL THAT PHARMACY ALREADY GONE IF HE WANTED A NOW DOSE WOULD NEED HIM TO SPECIFY HE STATED HE WOULD CALL BACK WITH DOSING.
--- NOTE | 2018-09-15 20:45 | NUR ---
CALLED DR PEOPLES INFORMED OF CONSULT FROM [facility] HE ASKED WHAT O2 PT WAS ON AND IF ANTIBIOTICS WERE STARTED INFORMED YES ON ANTIBIOTICS AND PT ON NC OXYGEN. HE STATED HE WOULD SEE IN AM
--- NOTE | 2018-09-15 20:55 | NUR ---
DR STAHL CALLED BACK GAVE ORDER FOR [facility] FIRST DOSE AND PHARMACY TO DOSE AFTER
--- NOTE | 2018-09-15 21:15 | NUR ---
PTS FAMILY UPDATED ON CONVERSATIONS WITH PHYSICIANS AND ORDERS
--- NOTE | 2018-09-15 23:00 | NUR ---
REASSESSMENT MADE SEE FLOWSHEET REPOSTIIONED FOR COMFORT CHG BATH.
[2018-09-16] VITALS (22 sets, daily range): BP systolic 93–132; BP diastolic 55–80
--- NOTE | 2018-09-16 | NUR ---
PT CALLING OUT C/O PAIN STATES "MY HIPS AND BACK ARE HURTING". MEDICATED WITH PRN MORPHINE BUT ONLY 1 MG SIVP GIVEN PT HAS BEEN HYPOTENSIVE. WILL CONTINUE TO MONITOR
--- NOTE | 2018-09-16 00:12 | NUR ---
PT GIVEN ZOFRAN PER PRN ORDER AFTER C/O NAUSEA AND VOMITED SMALL AMOUNT OF CLEAR COLORED FLUID
--- NOTE | 2018-09-16 01:30 | NUR ---
PT C/O PAIN TO BACK AGAIN MEDICATED WITH PRN SEE EMAR
--- NOTE | 2018-09-16 03:00 | NUR ---
REASSESSMENT PT CONTINUES TO BE CONFUSED DENIES PAIN AT THIS TIME JUST REQUESTING SOMETHING TO DRINK, INFORMED OF NPO STATUS FOR POSSIBLE PROCEDURE WELL C/O NAUSEA AND VOMITING PREVIOUSLY. HE STATED "I DIDNT THROW UP YOU ARE JUST MAKING THAT UP AND DONT WANT TO LET ME DRINK WATER". REORIENTED PT. REPOSITIONED FOR COMFORT DENIES PAIN AT THIS TIME
[2018-09-16 03:54] LABS: BASOPHILS 0.3 % (0-2); EOSINOPHILS 0.1 % (0-7); HEMOGLOBIN 10.3 g/dL (13.5-17.5); IMMATURE GRANULOCYTES 0.3 % (0-5); LYMPHOCYTES 10.1 % (15-50); MCH 28.2 pg (26.0-34.0); MCHC 31.2 g/dL (31.0-37.0); MCV 90.4 fL (80.0-100.0); MEAN PLATELET VOLUME 11.7 fL (7.4-10.4); MONOCYTES 11.5 % (2-11); NEUTROPHILS 77.7 % (40-80); PLATELET COUNT 190 10x3/uL (130-400); RBC 3.65 10x6/uL (4.20-6.10); RDW 15.8 % (11.5-14.5); WBC 11.9 10x3/uL (4.8-10.8)
[2018-09-16 03:58] LABS: ANION GAP 13.6 mmol/L (8-16); CALCIUM 8.7 mg/dL (8.5-10.1); CREATININE - SERUM 2.8 mg/dL (0.6-1.3); POTASSIUM - SERUM 5.6 mmol/L (3.5-5.1)
--- NOTE | 2018-09-16 06:00 | NUR ---
PT YELLING OUT FOR A DRINK. INFORMED PT AGAIN OF POSSIBLE PROCEDURE AND THAT ORDERS ARE NOTHING BY MOUTH DUE TO RISK OF ASPIRATION AND ALSO OF HIS N/V EARLIER IN SHIFT.
--- NOTE | 2018-09-16 07:00 | NUR ---
PT RESTING IN BED C CALL TORRES IN REACH. NO COMPLAINTS.
--- NOTE | 2018-09-16 09:00 | NUR ---
DR. GRISSOM CAME BY TO SEE PATIENT. GAVE OKAY TO GIVE ALL MORNING MEDS AND ORDERS TO PREOP PATIENT FOR HEART CATH AND OBTAIN CONSENSTS.
--- NOTE | 2018-09-16 09:32 | NUR ---
Nutrition follow-up: Pt now NPO for heart cath Labs reviewed Wt: 264# Pt confused per nursing. RDN following.
--- NOTE | 2018-09-16 09:50 | NUR ---
PT TAKEN TO OUTDOOR ADVERTISING LEASING AGENT AT THIS TIME
--- NOTE | 2018-09-16 09:55 | CN ---
PATIENT NAME:URI KNIGHT MEDICAL RECORD: [id number] : 37 LOCATION:DANAE.2304 ADMIT DATE: 09/13/18 ACCOUNT: [id number] CONSULTING PHYSICIAN: HALIMA TANNER MD REFERRING PHYSICIAN: ANGELA NEWTON MD DATE OF CONSULTATION: 09/14/2018 HISTORY OF PRESENT ILLNESS: An 83-year-old gentleman with a coronary history. He has a history of aortic valve disease status post aortic valve replacement as well as 2-vessel coronary bypass grafting in the same setting. More recently, he had increasing shortness of breath, chest pain. He has been feeling poorly over the past 6 months requiring a long term placement secondary to muscle atrophy and weakness. He was found to have elevated creatinine as well as troponins with increase in troponin. We are asked to see him concerning his cardiovascular status. PAST MEDICAL HISTORY: Includes: 1. History of sick sinus syndrome with atrial fibrillation, on Coumadin for CVA prophylaxis. 2. Hypertension. 3. Coronary artery disease with 3-vessel bypass grafting at the time of aortic valve replacement. 4. Diabetes mellitus. ALLERGIES: None known. MEDICATIONS: On transfer include Coumadin per scale, Neurontin 300 b.i.d., insulin, Januvia 50 mg p.o. every day. SOCIAL HISTORY: Retired, currently resides in a long term. Good family support. REVIEW OF SYSTEMS: The patient reports easy bruising but reports no swollen glands. The patient reports no fever, no night sweats, no significant weight gain, no significant weight loss. No significant exercise tolerance. The patient reports no dry eyes, no irritation, no vision change. Patient reports no difficulty hearing and no ear pain. Patient reports no frequent nose bleeds or nose and sinus problems. Patient reports on arm pain on exertion. No shortness of breath while lying down. No history of heart murmur. Patient reports no cough, no wheezing or coughing up blood. Patient reports no abdominal pain, no vomiting. Normal appetite. No diarrhea and not vomiting blood. No nausea and no constipation. Patient reports no incontinence. No difficulty urinating. No hematuria. No increased frequency. Patient reports no muscle aches. No weakness, no arthralgias, no back pain. No swelling of the extremities. Patient reports no abnormal mole, no jaundice, no rashes. Reports no loss of consciousness. No weakness and no numbness. No seizures, dizziness, or headaches. The patient reports no depression, no sleep disturbance, feeling safe in a relationship and no alcohol abuse. Patient reports on fatigue. Reports no runny nose or sinus pressure. No itching, no hives, and no frequent sneezing. PHYSICAL EXAMINATION: GENERAL: Chronically ill-appearing, no acute distress. VITAL SIGNS: 103/67, pulse 105. CONSULT REPORT [id number] URI KNIGHT HEENT: Normocephalic, atraumatic. NECK: No bruits noted. HEART: Regular, S4 gallop is noted, II/ ejection murmur. LUNGS: Actually fairly good air excursion. ABDOMEN: Soft, nontender. EXTREMITIES: Pulses 2+. There is no edema. IMPRESSION: 1. Non-ST elevation myocardial infarction. At this point in time, INR is elevated at 2.2. I would like to let this come at least to the below 1.8. Additionally, he was given some time for hydration for renal protective effect. 2. Further recommendation based on clinical course. TRANSINT:[id number] Voice Confirmation ID: [id number] DOCUMENT ID: [id number] HALIMA TANNER MD at 0955 CC: [id number] DICTATION DATE: 09/14/18 1329 SPORTS INTERN: 09/14/18 2233 ADM IN [place] [id number]
--- NOTE | 2018-09-16 09:55 | EC ---
PATIENT:URI KNIGHT DATE OF SERVICE: 09/13/18 SEX: M MEDICAL RECORD: [id number] DATE OF : 37 LOCATION:D.[facility] D.230 AGE OF PATIENT: 83 ADMISSION DATE: 09/13/18 REFERRING PHYSICIAN: INTERPRETING PHYSICIAN: HALIMA TANNER MD ECHOCARDIOGRAM REPORT ECHO CHARGES 5 ECHO LIMITED Date: 09/14/18 1 DOPPLER ECHO COLOR FLOW 2 DOPPLER ECHO PULSE CLINICAL DIAGNOSIS: NSTEMI ECHOCARDIOGRAPHIC MEASUREMENTS (adult normal given) AC root (d.<3.7cm) 0 cm LV Septum d (<1.2 cm> 0 cm Valve Excursion 0 cm LV Septum (systole) 0 cm Left Atria (s.<4.0cm> 0 cm LVPW d(<1.2cm) 0 cm RV (d.<2.3cm) 0 cm LVPW (sytole) 0 cm LV diastole(<5.6CM) 0 cm MV E-F(>70mm/sec) 0 cm LV systole 0 cm LVOT Diameter 0 cm MV exc.(>10mm) 0 cm Est.ejection fraction (50-75%) 0 % DOPPLER: LVIT 0 cm/sec A 0 cm/sec E 0 cm/sec LA 0 cm/sec RVSP 53.0 mmHg LVOT 0 cm/sec AOP1/2T 0 m/s Asc. Ao 0 cm/sec RVOT 0 cm/sec RA 0 cm/sec PA 0 cm/sec AV Gradient Peak 0 mmHg AV Mean 0 mmHg AV Area 0 cm MV Gradient Peak 0 mmHg MV Mean 0 mmHg MV Area 0 cm COMMENTS: LIMITED STUDY (2-D,COLOR,DOPPLER) COMPLETE ECHO DONE ON 08/08/18 Perfumer: Sangeetha DAVIESOE Leasing Director: 3 Dr. Ladd TAPE# PACS Pericardial Effusion N DATE OF SERVICE: 09/15/2018 Limited study. It includes 2-D and color-flow. Grossly, LVH appears normal. LV internal dimensions are normal. LV is globally hypokinetic with reduced EF. Estimated EF is 35% to 40%. Prosthetic aortic valve is noted. Left atrium appears dilated around 6. Moderate MR. Right-sided chambers are grossly normal. Moderate TR. TRANSINT:[id number] Voice Confirmation ID: [id number] DOCUMENT ID: [id number] ECHOCARDIOGRAM REPORT [id number] URI KNIGHT GREGORY A MD at 0955 CC: [id number] DICTATION DATE: 09/15/18 1357 CONSTRUCTION ENGINEER: 09/15/18 1528 ADM IN [place] [id number] [place] [id number]
--- NOTE | 2018-09-16 10:29 | NUR ---
CALLED DR. LINDSEY'S OFF ICE TO NOTIFY OF CONSULT
--- NOTE | 2018-09-16 11:09 | NUR ---
PT RETURNED FROM HEART CATH. REPORT GIVEN THAT STENT WAS PLACED IN VEIN GRAFT TO RCA. PT RECEICING INTEGRILLIN AT 9.6ML/HR AND NS AT 150. AMIODARONE AT 16ML/HR. VSS STABLE. INSTRUCTED TO LIE FLAT FOR 4 HOURS. WILL CONTINUE TO MONITOR. CATH INSTERTED THROUGH RIGHT GROIN EXOSEALED.
--- NOTE | 2018-09-16 13:03 | NUR ---
VERIFIED WITH DR. GRISSOM THAT DISCHARGE ORDER WAS MISTAKE
--- NOTE | 2018-09-16 14:07 | MORECARE ---
CASE MANAGEMENT DISCHARGE SUMMARY PATIENT: URI KNIGHT UNIT: [id number] ADM DATE: 09/13/18 AGE: 83 : 36 SEX: M ROOM/BED: D.2304 AUTHOR: JUAN ALFARO PHYSICIAN: REFERRING PHYSICIAN: ANGELA NEWTON MD DATE OF SERVICE: 09/16/18 Discharge Plan Patient Name[facility] URI KNIGHT [facility] [facility] 1935 Planned Disposition: [facility] Facility Anticipated Discharge Date: Discharge Date: Expected LOS: Initial Reviewer: [email or web address] Initial Review Date: 09/14/2018 Generated: 09/16/18 3:07 pm Patient Name: URI KNIGHT Page [phone] at 1407 All edits/amendments must be made on the electronic document DICTATION DATE: 09/16/181406 AERODYNAMICIST: NESSA 09/16/181406 RPT#: [id number] DC DATE: STATUS: ADM IN [facility] [address] [place] [address] END OF REPORT
--- NOTE | 2018-09-16 14:16 | MORECARE ---
CASE MANAGEMENT DISCHARGE SUMMARY PATIENT: URI KNIGHT UNIT: [id number] ADM DATE: 09/13/18 AGE: 83 : 36 SEX: M ROOM/BED: D.2304 AUTHOR: JUAN ALFARO PHYSICIAN: REFERRING PHYSICIAN: ANGELA BERNSTEIN MD DATE OF SERVICE: 09/16/18 Discharge Plan Patient Name: URI KNIGHT [facility] [facility] 1935 Planned Disposition: Group Home Facility Anticipated Discharge Date: Discharge Date: Expected LOS: Initial Reviewer: [email or web address] Initial Review Date: 09/14/2018 Generated: 09/16/18 3:15 pm DCPIA - Discharge Planning Initial Assessment Updated by [email or web address]: Annika Hernandez on 09/16/18 2:10 pm * Is the patient Alert and Oriented? Yes * How many steps to enter\exit or inside your home? * PCP DR. Bernstein * Pharm[facility] * Preadmission Environment Group Home Facility * Facility Name [facility] * ADLs Independent * Equipment None * List name and contact numbers for known caregivers / representatives who currently or will assist patient after discharge: Kanika Rivas - [facility] - [phone] * Verbal permission to speak to the caregivers and representatives has been obtained from the patient. Yes * Community resources currently utilized None * Additional services required to return to the preadmission environment? No * Can the patient safely return to the preadmission environment? Yes * Has this patient been hospitalized within the prior 30 days at any hospital? No Last DP export: 09/16/18 1:07 p Patient Name: URI KNIGHT Page [phone] at 1416 All edits/amendments must be made on the electronic document DICTATION DATE: 09/16/181414 PUTTY MIXER AND APPLIER: NESSA 09/16/181414 RPT#: [id number] DC DATE: STATUS: ADM IN [facility] [address] [place] [address] END OF REPORT
--- NOTE | 2018-09-16 15:00 | NUR ---
FAMILY AT BEDSIDE, UPDATE PROVIDED, MONITORS ON AND WORKING VITALS STABLE, SEE FLOW SHEET FOR FURTHER DETAILS. WILL CONTINUE TO OBSERVE.
--- NOTE | 2018-09-16 17:00 | NUR ---
PT VOMITED COFFEE GROUND EMESIS, DR TANNER AWARE, ZOFRAN AND PROTONIX GIVEN. H AND H STABLE, MONITORS ON AND WORKING, VITALS STABLE, DR LINDSEY AT BEDSIDE AND SPOKE WITH FAMILY. WILL CONTINUE TO OBSERVE.
[2018-09-16 17:01] LABS: HEMATOCRIT 32.4 % (42.0-54.0); HEMOGLOBIN 10.2 g/dL (13.5-17.5)
--- NOTE | 2018-09-16 19:00 | NUR ---
REPORT RECEIVED, CARE ASSUMED. PT IS SITTING UP IN BED AT THIS TIME COMPLAINING OF BEING CONSTIPATED. INITIAL ASSESSMENT COMPLETED, SEE FLOWSHEET FOR DETAILS. PT TURNED AND BEDPAD CHANGED WITH DAYSHIFT RN'S HELP. PT PLACED ON BEDPAN SO THAT HE CAN TRY TO USE THE BATHROOM. NO SIGNS OF ACUTE DISTRESS NOTED AT THIS TIME. WILL CONTINUE TO MONITOR.
--- NOTE | 2018-09-16 21:00 | NUR ---
PT CALLED FOR HELP SEVERAL TIMES TO COMPLAIN OF NOT BEING ABLE TO USE THE BATHROOM DUE TO CONSTIPATION. TRIED REPOSITIONING PT. NO FURTHER CHANGES NOTED. NO SIGNS OF ACUTE DISTRESS. WILL CONTINUE TO MONITOR.
--- NOTE | 2018-09-16 23:00 | NUR ---
REASSESSMENT COMPLETED, SEE FLOWSHEET FOR DETAILS. NO ACUTE CHANGES NOTED. PT IS STILL COMPLAINING OF CONSTIPATION AND THAT IT HURTS. NO SIGNS OF ACUTE DISTRESS. WILL CONTINUE TO MONITOR.
[2018-09-17] VITALS (8 sets, daily range): BP systolic 77–117; BP diastolic 49–72
--- NOTE | 2018-09-17 01:00 | NUR ---
PT IS LAYING IN BED WITH EYES CLOSED. NO SIGNS OF ACUTE CHANGES NOTED AT THIS TIME. WILL CONTINUE TO MONITOR.
--- NOTE | 2018-09-17 02:23 | NUR ---
PT WAS INCONTIENT OF A MODERATE SIZED BRIGHT RED BM. PT WAS CLEANED UP AND BEDPADS CHANGED. PT DENIES HAIVNG UPSET STOMACH OR ANY DISCOMFORT AT THIS TIME. WILL CONTINUE TO MONITOR.
--- NOTE | 2018-09-17 03:00 | NUR ---
REASSESSMENT COMPLETED, SEE FLOWSHEET FOR DETAILS. PT IS LAYING IN BED WITH EYES CLOSED, WILL OCCASSIONALLY YELL FOR HELP BUT APPEARS TO BE SLEEPING WHEN ENTERING THE ROOM. NO SIGNS OF ACUTE DISTRESS NOTED. WILL CONTINUE TO MONITOR.
--- NOTE | 2018-09-17 05:00 | NUR ---
PT IS RESTING IN BED WITH EYES CLOSED. PT WAS INCONTINENT OF A LARGE MAROON BM WITH COPIOUS AMOUNTS OF CLOTS. VSS. NO SIGNS OF ACUTE DISTRESS. WILL CONTINUE TO MONITOR.
[2018-09-17 06:16] LABS: HEMATOCRIT 28.3 % (42.0-54.0)
--- NOTE | 2018-09-17 07:19 | NUR ---
PT AWAKE AND ALERT THIS AM. ORIENTED TO SELF AND PLACE BUT NOT TIME OR SITUATION. DENIES PAIN AT THIS TIME. IV TO L AC AND RT FOREARM BOTH PATENT AND INFUSING. STABLE VITALS. PT REQUESTING WATER. PROVIDED ASSISTANCE WITH DRINKING. EYES CLOSED AND PT DENIES ANY ADDTIONAL NEEDS AT THIS TIME.
--- NOTE | 2018-09-17 07:32 | HP ---
PATIENT: URI KNIGHT MEDICAL RECORD: [id number] ACCOUNT: [id number] LOCATION:[facility] D.2304 : 37 ADMISSION DATE: 09/13/18 PCP: ANGELA NEWTON MD HISTORY AND PHYSICAL EXAMINATION REASON FOR ADMISSION: Chest pain. HISTORY OF PRESENT ILLNESS: The patient is an 83-year-old male with metabolic syndrome, remote bovine aortic valve replacement, CABG and peripheral vascular disease. He said he was at [facility] yesterday, after playing bingo developed some substernal chest discomfort, precipitated, became worse throughout the day. They brought him to the ED. On admission, his troponin was quite elevated, is normotensive. EKG shows some subtle ST-T abnormalities in anterior lateral leads. He is admitted to the ICU and Dr. Ladd has been consulted. He denies shortness of breath, said his pain is improved, currently on topical nitropatch. He has had no recent exertional chest pain, he states, but due to his diabetic state he has neuropathy. His and son are in the ICU with him this morning. He denies any recent fever, cough, nausea, vomiting, change in stools or blood per rectum. He also has history of AFib, on chronic anticoagulation, with Coumadin. PAST MEDICAL HISTORY: AODM, fair control; remote CVA with cognitive dysfunction; history of PAF AVR with bovine valve; CABG; essential hypertension; BPH; sick sinus syndrome with pacemaker; chronic gait instability; history of UTI with altered mental status in 2017; carotid occlusive disease; history of pneumonia in 2018; glaucoma; arthritis. PAST SURGICAL HISTORY: Bovine aortic valve replacement; coronary artery bypass grafting; carotid endarterectomy; total knee replacement bilaterally; he has had peripheral vascular angioplasty for peripheral vascular disease; contact lens implants in both eyes; carpal tunnel repair; he had a thigh abscess in April of 2018 with I&D. SOCIAL HISTORY: , he lived at home up until the last month, he has been at [facility]. He is a nonsmoker, nondrinker. His son and daughter are his primary legal guardians and are very attentive to his care. FAMILY HISTORY: Mother of CAD and lung disease, was a smoker. ALLERGIES: None. HOME MEDICATIONS: Gabapentin 300 mg b.i.d.; Coumadin 2.5 mg Sunday and , 5 mg other days; Flomax 0.4 at bedtime; aspirin 81 mg daily; Levemir 44 units subQ at bedtime; NovoLog low dose sliding scale; Januvia 50 mg daily. REVIEW OF SYSTEMS: GENERAL: No recent fever or fatigue. HEENT: No recent visual change, sinus congestion, sore throat, some hearing deficit. RESPIRATORY: Denies shortness of breath. CARDIAC: He had mid substernal chest discomfort, running up into his back and neck. It has improved since nitropatch placed. GASTROINTESTINAL: No nausea, vomiting, change in stools, blood per rectum or melena. ENDOCRINE: Denies polyuria or polydipsia. HISTORY AND PHYSICAL [id number] URI KNIGHT NEUROLOGIC: He has chronic trouble with his recent memory and weakness in both of his legs causing gait disturbance. PSYCHIATRIC: Admits to depressed mood concerning his illnesses. INTEGUMENTARY: No recent rash or itching. PHYSICAL EXAMINATION: VITAL SIGNS: Blood pressure 100/60, heart rate is 100, respiratory rate is 17, sats 91% on 2 liters. GENERAL: The patient is alert and oriented and resting. His eyes are clear with lens implants. Oropharynx unremarkable. NECK: Supple. CHEST: Distant breath sounds without wheeze or rales. HEART: Tachycardic with a faint aortic systolic murmur I/. ABDOMEN: Obese, soft, nontender. EXTREMITIES: He has decreased dorsalis pedis and posterior tibialis pulses. SKIN: Intact. NEUROLOGIC: Oriented to person, place, and time. Cranial nerves are intact. No localizing motor deficits appreciated. Gait was not tested. LABORATORY DATA: White count is 8200 with H&H 11.5 and 36.1. BMP shows sodium of 134, BUN and creatinine of 31 and 2.5, glucose was 388 on admission. CPK-MB was 5.1 on admission, now 24. Troponin was 1941, now 9000. ProBNP is 4500. INR is 2.17. D-dimer is 0.58. EKG shows ST segment changes in the anterior lateral leads. Chest x-ray shows atelectasis in the right middle lung base. ASSESSMENT: 1. Non-ST segment elevation myocardial infarction, acute. 2. Metabolic syndrome. 3. Hypotension. 4. Peripheral vascular disease. 5. History of bovine aortic valve replacement. 6. Diabetes mellitus, hyperlipidemia, chronic renal insufficiency. PLAN: I have discussed with Dr. Ladd and family. We will give vitamin K and plan on cardiac catheterization in the morning if INR is acceptable. His code status is still FULL at this time. TRANSINT:[id number] Voice Confirmation ID: [id number] DOCUMENT ID: [id number] ANGELA NEWTON MD at 0732 CC: [id number] DICTATION DATE: 09/14/18921 COFFEE GRINDER: 09/14/18 1125 ADM IN [place] [id number] [place] [address]
[2018-09-17 09:48] LABS: ALBUMIN 1.9 g/dL (3.4-5.0); ANION GAP 19.4 mmol/L (8-16); BILIRUBIN - TOTAL 0.43 mg/dL (0.2-1.3); CALCIUM 8.2 mg/dL (8.5-10.1); CARBON DIOXIDE 19.3 mmol/L (21.0-32.0); CREATININE - SERUM 4.4 mg/dL (0.6-1.3); POTASSIUM - SERUM 5.7 mmol/L (3.5-5.1); PROTEIN - SERUM 6.3 g/dL (6.4-8.2)
--- NOTE | 2018-09-17 10:01 | NUR ---
PATIENT SLEEPING ON AND OFF BUT STILL CONFUSED WHEN AWAKE. FAMILY AT BEDSIDE. BILATERAL IVS PATENT AND INFUSING. VITALS STABLE WITH A BLOOD PRESSURE SYSTOLICALLY IN THE HIGH 80'S. PATIENT HAS NO COMPLAINTS OF PAIN AND DENIES NEEDS AT THIS TIME. FAMILY REQUESTED TO WAIT AND HAVE STAFF CLEAN PAITENT AFTER VISITING HOURS WERE OVER.
[2018-09-17 10:02] LABS: BASOPHILS 0.5 % (0-2); EOSINOPHILS 0.1 % (0-7); HEMATOCRIT 25.5 % (42.0-54.0); HEMOGLOBIN 8.1 g/dL (13.5-17.5); IMMATURE GRANULOCYTES 0.3 % (0-5); LYMPHOCYTES 7.9 % (15-50); MCHC 31.8 g/dL (31.0-37.0); MEAN PLATELET VOLUME 12.3 fL (7.4-10.4); MONOCYTES 12.3 % (2-11); NEUTROPHILS 78.9 % (40-80); PLATELET COUNT 187 10x3/uL (130-400); RDW 15.8 % (11.5-14.5); WBC 11.9 10x3/uL (4.8-10.8)
[2018-09-17 10:03] LABS: MCV 88.2 fL (80.0-100.0); RBC 2.89 10x6/uL (4.20-6.10)
--- NOTE | 2018-09-17 13:19 | NUR ---
PATIENT RESTING QUIETLY. BED CHANGE AND PERICARE PROVIDED. IVS PATENT AND INFUSING. PATIENT DENIES ANY NEEDS AT THIS TIME.
--- NOTE | 2018-09-17 14:25 | NUR ---
PAITENT RESTING COMFORTABLY AFTER MORPHINE ADMINISTERED. BP LOW BUT STABLE. VITALS STABLE. PATIENT DENIES PAIN AT THIS TIME. NO NEEDS AT THIS TIME.
--- NOTE | 2018-09-17 14:52 | MORECARE ---
CASE MANAGEMENT DISCHARGE SUMMARY PATIENT: URI KNIGHT UNIT: [id number] ADM DATE: 09/13/18 AGE: 83 : 36 SEX: M ROOM/BED: D.2304 AUTHOR: DOMINICDOC PHYSICIAN: REFERRING PHYSICIAN: ANGELA BERNSTEIN MD DATE OF SERVICE: 09/17/18 Discharge Plan Patient Name: URI KNIGHT Facility: [facility]:[place] : 1935 Planned Disposition: Long-Term Facility Anticipated Discharge Date: Discharge Date: Expected LOS: Initial Reviewer: [email or web address] Initial Review Date: 09/14/2018 Generated: 09/17/18 3:52 pm Comments DCP- Discharge Planning Updated by [email or web address]: Annika Hernandez on 09/17/18 1:[address] CM notified that family is requesting Hospice. CM came and spoke with family they are requesting Inpatient Hospice. CM explained that the only company we have a contract with for inpatient is [facility]. Family agreed to [facility] CM called Gilles with [facility] for referral / evaluation. Plan is to admit patient to inpatient hospice and comfort care. CM will continue to follow and assist as needed with discharge planning / needs. DCP- Discharge Planning Updated by [email or web address]: Annika Hernandez on 09/16/18 1:[address] Patient Name: URI KNIGHT Admission Status: ER Accout number: [id number] Admission Date: 09-13-2018 : 1935 Admission Diagnosis: Attending: ANGELA BERNSTEIN Current LOS: 3 Anticipated DC Date: Planned Disposition: Long-Term Facility Primary Insurance: MEDICARE A & B Discharge Planning Comments: CM spoke with patient and family at bedside. Patient is post-op this am from heart cath. Family answered questions. Patient has been in [facility] for Rehab and plans are for him to return there upon discharge. [facility] signed for [facility] . CM called [facility] and they confirmed that patient was in Medicare bed and they do plan on him returning there upon discharge. CM will continue to follow and assist as needed with discharge planning / needs. Programmer Developer: Annika Hernandez DCPIA - Discharge Planning Initial Assessment Updated by [email or web address]: Annika Hernandez on 09/16/18 2:10 pm * Is the patient Alert and Oriented? Yes * How many steps to enter\exit or inside your home? * PCP DR. Bernstein * Pharmacy [facility] * Preadmission Environment Long-Term Facility * Facility Name [facility] * ADLs Independent * Equipment None * List name and contact numbers for known caregivers / representatives who currently or will assist patient after discharge: Kanika Rivas - [place] - [phone] * Verbal permission to speak to the caregivers and representatives has been obtained from the patient. Yes * Community resources currently utilized None * Additional services required to return to the preadmission environment? No * Can the patient safely return to the preadmission environment? Yes * Has this patient been hospitalized within the prior 30 days at any hospital? No Last DP export: 09/16/18 1:16 p Patient Name: URI KNIGHT Page 23959 at 1452 All edits/amendments must be made on the electronic document DICTATION DATE: 09/17/182 ADVERTISING ASSISTANT: NESSA 09/17/18 1452 RPT#: [id number] DC DATE: STATUS: ADM IN [facility] [address] [place] [address] END OF REPORT
--- NOTE | 2018-09-17 15:33 | NUR ---
PATIETN STARTING TO GET AGITATED AGAIN. HOSPICE FINISHING UP ADMISSION VITALS STABLE WITH LOW BLOOD PRESSURE.
--- NOTE | 2018-09-17 15:37 | OP ---
PATIENT NAME: URI KNIGHT MEDICAL RECORD: [id number] :37 LOCATION:[facility] D.2304 ADMISSION DATE:09/13/18 SURGEON: HALIMA TANNER MD DATE OF OPERATION: 09/16/2018 PROCEDURE: Left heart catheterization, selective coronary angiography, plus right femoral artery approach. CATHETERS: A 5-Hungarian sheath, 5/4 left and right Manohar. The procedure was well tolerated. We proceeded to PTCA stenting of saphenous vein graft to the right after the procedure was finished. FINDINGS: Left ventriculography not performed (EF 35% to 40% via most recent echo). CORONARY ANATOMY: LEFT MAIN: Left main is free of disease. LAD: LAD is ungrafted. It has about 60% stenosis in proximal portion, does reach the apex. CIRCUMFLEX: Small vessel is totally occluded. RIGHT CORONARY ARTERY: Totally occluded in its proximal portion. SAPHENOUS VEIN GRAFT TO CIRCUMFLEX: Occluded saphenous vein graft to the right, has a 90% plus stenosis with some thrombus in the midpoint of the vein graft. The distal, after anastomotic site to the PDA is severely diffusely diseased, typical for diabetes. IMPRESSION AND PLAN: Intervention to the saphenous vein graft to the right and kotlik right through the right momentarily. DESCRIPTION OF PROCEDURE: A 5-Hungarian sheath was exchanged for a 6-Hungarian sheath. A multipurpose guide catheter provided good guide catheter support followed by a 300 cm Whisper wire. A 2.5 x 20 mm Ransom balloon was placed down to the distal PDA and inflated up and down this vessel. This showed good improvement from 80% stenosis to no residual in the diffused area of the distal right. The tight 90% to 95% stenosis in mid portion of the saphenous vein graft to the right itself was predeployed with indwelling balloon and then stent deployed was a 3.5 x 12 Cobra stent up to 16 atmospheres with excellent resolution. The patient was given IC Integrilin as well for thrombus burden. Overall, GEORGE flow improved from 2-3 with good plumping the distal vasculature. Sheath closed with ExoSeal device. Plavix was loaded when sedation wears off. Integrilin was used in the case, both intravenous and intracoronary. TRANSINT:[id number] Voice Confirmation ID: [id number] DOCUMENT ID: [id number] HALIMA TANNER MD at 1537 CC: [id number] DICTATION DATE: 09/16/18 111 KILNMAN: 09/16/18 1459 ADM IN [place] [id number] [place] [id number]
--- NOTE | 2018-09-17 16:42 | NUR ---
PATIENT ACCEPTED TO HOSPICE NEW ORDERS PENDING
--- NOTE | 2018-09-18 09:19 | MORECARE ---
CASE MANAGEMENT DISCHARGE SUMMARY PATIENT: URI KNIGHT UNIT: [id number] ADM DATE: 09/13/18 AGE: 83 : 36 SEX: M ROOM/BED: D.2304 AUTHOR: JUAN ALFARO PHYSICIAN: REFERRING PHYSICIAN: ANGELA BERNSTEIN MD DATE OF SERVICE: 09/18/18 Discharge Plan Patient Name: URI KNIGHT Facility: [facility]:[place] : 1935 Planned Disposition: Longterm Facility Anticipated Discharge Date: Discharge Date: 09/17/2018 Expected LOS: Initial Reviewer: [email or web address] Initial Review Date: 09/14/2018 Generated: 09/18/18 10:19 am Comments DCP- Discharge Planning Updated by [email or web address]: Annika Hernandez on 09/17/18 1:[address] CM notified that family is requesting Hospice. CM came and spoke with family they are requesting Inpatient Hospice. CM explained that the only company we have a contract with for inpatient is [facility]. Family agreed to [facility] CM called Gilles with [facility] for referral / evaluation. Plan is to admit patient to inpatient hospice and comfort care. CM will continue to follow and assist as needed with discharge planning / needs. DCP- Discharge Planning Updated by [id number]: Annika Hernandez on 09/16/18 1:[address] Patient Name: URI KNIGHT Admission Status: ER Accout number: [id number] Admission Date: 09-13-2018 : 1935 Admission Diagnosis: Attending: ANGELA BERNSTEIN Current LOS: 3 Anticipated DC Date: Planned Disposition: Longterm Facility Primary Insurance: MEDICARE A & B Discharge Planning Comments: CM spoke with patient and family at bedside. Patient is post-op this am from heart cath. Family answered questions. Patient has been in [facility] for Rehab and plans are for him to return there upon discharge. [facility] signed for [facility] . CM called [facility] and they confirmed that patient was in Medicare bed and they do plan on him returning there upon discharge. CM will continue to follow and assist as needed with discharge planning / needs. Vulnerability Assessment Analyst: Annika Hernandez DCPIA - Discharge Planning Initial Assessment Updated by [email or web address]: Annika Hernandez on 09/16/18 2:10 pm * Is the patient Alert and Oriented? Yes * How many steps to enter\exit or inside your home? * PCP DR. Bernstein * Pharmacy [facility] * Preadmission Environment Longterm Facility * Facility Name [facility] * ADLs Independent * Equipment None * List name and contact numbers for known caregivers / representatives who currently or will assist patient after discharge: Kanika Rivas - Daughter - [phone] * Verbal permission to speak to the caregivers and representatives has been obtained from the patient. Yes * Community resources currently utilized None * Additional services required to return to the preadmission environment? No * Can the patient safely return to the preadmission environment? Yes * Has this patient been hospitalized within the prior 30 days at any hospital? No Last DP export: 09/17/18 1:52 p Patient Name: URI KNIGHT Page [id number] at 0919 All edits/amendments must be made on the electronic document DICTATION DATE: 09/18/18918 PLASTIC PRESS MOLDER: NESSA 09/18/18918 RPT#: [id number] DC DATE:09/17/18 STATUS: DIS IN [facility] [address] [place] [address] END OF REPORT
--- NOTE | 2018-11-07 17:32 | DS ---
PATIENT:URI KNIGHT :37 MEDICAL RECORD: [id number] DISCHARGE SUMMARY ADMISSION DATE: 09/13/18 DISCHARGE DATE: 09/17/18 DISCHARGE DIAGNOSES: Non-ST elevation myocardial infarction, anemia, fever, diabetes mellitus acute on chronic, coronary artery disease, [id number] renal insufficiency, congestive heart failure, hypokalemia. HOSPITAL COURSE: An 83-year-old male admitted with chest discomfort and incurring a non-STEMI MA. He has history of vein graft, PTCA. He has been on Plavix in the face of chronic renal insufficiency and potential upper GI bleeding. He developed a large melanotic stool. H&H dropped. He remained hypertensive and renal function worsened. The patient had renal and pulmonary consultations while hospitalized in the ICU. Dr. Perez from renal discussed with the family potential for DNR status on 09/17/18, due to his worsening prognosis. Family did not want to consider dialysis or aggressive procedures or vasopressors. Ultimately, the family decided on hospice. The patient was discharged to hospice on 09/16/2018 for comfort measures. TRANSINT:[id number] Voice Confirmation ID: [id number] DOCUMENT ID: [id number] ANGELA NEWTON MD at 1732 CC: [id number] DICTATION DATE: 11/07/18 1319 TEMPORARY ADMINISTRATIVE ASSISTANT: 11/07/18 1328 DIS IN 09/17/18 [facility] [address] [place] [address]
== END 2018-09-17 17:39 | disposition hospice, inpatient (51) | DRG 248 ==
LOC: D.ER 20:15 → D.ICU 23:53
PROVIDERS: Family Medicine; Internal Medicine; Internal Medicine Interventional Cardiology; ADMIT Family Medicine; ATTEND Family Medicine
PROC: B215YZZ Fluoroscopy of Left Heart using Other Contrast (ICD-10-PCS; 2018-09-16)
PROC: 02703DZ Dilation of Coronary Artery, One Artery with Intraluminal Device, Percutaneous Approach (ICD-10-PCS; principal; 2018-09-16 09:30)
PROC: 4A023N7 Measurement of Cardiac Sampling and Pressure, Left Heart, Percutaneous Approach (ICD-10-PCS; 2018-09-16 09:30)
DX: I21.4 Non-ST elevation (NSTEMI) myocardial infarction (principal); I50.21 Acute systolic (congestive) heart failure; N17.0 Acute kidney failure with tubular necrosis; R57.9 Shock, unspecified; K92.2 Gastrointestinal hemorrhage, unspecified; D62 Acute posthemorrhagic anemia; E88.81 Metabolic syndrome and other insulin resistance; I95.9 Hypotension, unspecified; I73.9 Peripheral vascular disease, unspecified; E11.9 Type 2 diabetes mellitus without complications; E78.5 Hyperlipidemia, unspecified; Z79.01 Long term (current) use of anticoagulants; Z95.2 Presence of prosthetic heart valve; E87.5 Hyperkalemia; D64.9 Anemia, unspecified; Z66 Do not resuscitate; Z79.4 Long term (current) use of insulin; I25.10 Atherosclerotic heart disease of native coronary artery without angina pectoris; E11.22 Type 2 diabetes mellitus with diabetic chronic kidney disease; N18.3 Chronic kidney disease, stage 3 (moderate); N14.1 Nephropathy induced by other drugs, medicaments and biological substances

== ENCOUNTER 2018-09-17 16:55 | Inpatient (IN) | payer OTHER ==
[~2018-09-17] VITALS: Ht 182.9 cm; Wt 97.7 kg
[2018-09-17 17:18] VITALS: BMI 29.2
[2018-09-17 18:06] VITALS: BP 73/40
--- NOTE | 2018-09-17 19:00 | NUR ---
REPORT RECEIVED. RECEIVED PATIENT IN BED. RESTING WITH EYES CLOSED. ROUSES EASILY TO VERBAL STIMULI. SHIFT ASSESSMENT COMPLETED PER FLOW SHEET. MONITORS CONNECTED TO PATIENT WITH ALARMS SET. RECEIVING HOSPICE SERVICES. FAMILY AT BEDSIDE.
--- NOTE | 2018-09-17 20:00 | NUR ---
FAMILY REQUESTS PROVIDER BE CONTACTED FOR PRN BENDADRYL DUE TO ITCHING. PAGED
--- NOTE | 2018-09-17 20:10 | NUR ---
SPOKE WITH LIAM HOLM APN, NEW ORDERS RECEIVED
--- NOTE | 2018-09-17 21:25 | NUR ---
PT HEART RATE DECREASESD INTO 20'S. FAMILY NOTIFIED IN WAITING ROOM. THEY ARE AT BEDSIDE. PT IS UNRESPONSIVE.
--- NOTE | 2018-09-17 21:30 | NUR ---
HEART RYTHMN ASYSTOLE. FAMILY AT BEDSIDE.
--- NOTE | 2018-09-17 21:45 | NUR ---
SIMONE POWER LINEMAN NOTIFIED OF ASYSTOLE. FAMILY AT BEDSIDE
--- NOTE | 2018-09-17 23:25 | NUR ---
SOCCER PLAYER BETHANY HERE TO SEE PATIENT.
--- NOTE | 2018-09-17 23:29 | NUR ---
TIME OF PRONOUNCED BY BENDER MACHINE DIANNE AT THIS TIME
--- NOTE | 2018-09-18 01:25 | NUR ---
REMAINS TRANSPORTED FROM FACILITY PER [facility] AT THIS TIME
[2018-09-18 08:48] VITALS: Ht 182.9 cm; Wt 97.7 kg
== END 2018-09-17 23:29 | DRG 951 ==
LOC: D.ICU 16:55
PROVIDERS: ADMIT Legal Medicine; ATTEND Legal Medicine
DX: Z51.5 Encounter for palliative care (principal)